=== PATIENT | female | born 1940 | race Caucasian/White ===

== ENCOUNTER 2020-03-22 22:54 | Emergency (ER) | payer MEDICARE, BC ==
[2020-03-22] MEDS ORDERED: Sodium Chloride 0.9% 10 ML Syringe FLUSH PRN (23:00)
[2020-03-22] MEDS ORDERED: Morphine 4 MG/ML Syringe IVPUSH ONE (23:03)
[2020-03-22] MEDS ORDERED: Ondansetron 4 MG/2 ML SDV IV ONE (23:03)
[2020-03-22] MEDS ORDERED: Morphine 2 MG/ML SYRINGE IM ONE (23:19)
[2020-03-22] MEDS ORDERED: Morphine 4 MG/ML Syringe ONE (23:58)
[2020-03-23 00:44] LABS: CHLORIDE,CL 102 mmol/L (98-107); SODIUM,NA 139 mmol/L (136-145)
[2020-03-23] MEDS ORDERED: HYDROmorphone 0.5 MG/0.5 ML Syringe IV ONE (00:53)
[2020-03-23] MEDS ORDERED: Ondansetron 4 MG/2 ML SDV IV ONE (00:53)
[2020-03-23 00:58] LABS: ANION GAP 13.8 mmol/L (10-20)
--- NOTE | 2020-03-23 01:11 | EDM.PDOC ---
ED HPI GENERAL MEDICAL PROBLEM - General Chief Complaint: Back Pain or Injury Stated Complaint: back pain fall Time Seen by Provider: 03/22/20 23:00 Source of Information: Reports: Patient History Limitations: Reports: No Limitations - History of Present Illness INITIAL COMMENTS - FREE TEXT/NARRATIVE: Patient was brought to the emergency department today by ambulance from home with concerns of a fall with back pain. Just prior to summoning the ambulance the patient was ambulatory at home she was going to the bathroom and her legs got like jelly" and she fell landing on her back striking it on some piece of the bathroom. She did not hit her head. She has osteoporosis. She has no head or neck pain. She primarily complains of pain in her mid back. She denies any pain in the pelvis. She denies any change in functionality or sensation to her lower extremities. She has no loss of bowel or bladder. She has no abdominal pain nausea or vomiting. She is a dialysis patient who missed dialysis yesterday because she had diarrhea and was unable to make it to her dialysis run. She was just recently discharged from the hospital either Thursday or Thursday due to fluid overload congestive heart failure and chronic dialysis. She has been taking her medications as prescribed. With her fall really sounds like she did not have any chest pain shortness of breath palpitations generalized weakness syncope. She relates on a regular basis her legs become weak and she falls. No fever no chills. No cough congestion. No chest pain. No Covid exposure no Covid symptoms. Lower Back Pain Score (Numeric/FACES): 10 - Related Data Allergies Allergy/AdvReac Type Severity Reaction Status Date / Time adhesive Allergy Rash Verified 03/22/20 23:39 latex Allergy Rash Verified 03/22/20 23:39 Home Meds: Home Meds Allopurinol [Zyloprim] 150 mg PO DAILY 05/15/15 [History] Aspirin 81 mg PO DAILY 05/15/15 [History] Calcium Carb, Citrate/Vit D3 [Calcium + D3 ER Tablet] 1 each PO DAILY@1500 05/15/15 [History] Cyanocobalamin (Vitamin B-12) [Vitamin B-12] 1,000 mcg PO DAILY@1800 05/15/15 [History] Digoxin [Digox] 125 mcg PO BEDTIME 05/15/15 [History] Furosemide 80 mg PO DAILY 05/15/15 [History] Levothyroxine [Synthroid] 50 mcg PO ACBREAKFAST 05/15/15 [History] Lisinopril [Prinivil] 5 mg PO DAILY 05/15/15 [History] Lutein/Minerals/Vit A,C & E [Ocuvite] 2 cap PO DAILY 05/15/15 [History] Metoprolol Succinate [Toprol XL] 50 mg PO DAILY 05/15/15 [History] Warfarin [Coumadin] 2.5 mg PO MOFR@199905/15/15 [History] Warfarin [Coumadin] 5 mg PO SUTUWETHSA@199905/15/15 [History] Past Medical History Cardiovascular History: Reports: Afib, Heart Failure, PVD Respiratory History: Reports: COPD Gastrointestinal History: Reports: GI Bleed Genitourinary History: Reports: Acute Renal Failure, Dialysis, Renal Disease Social & Family History - Tobacco Use Tobacco Use Status *Q: Never Tobacco User ED ROS GENERAL - Review of Systems Review Of Systems: Comprehensive ROS is negative, except as noted in HPI. ED EXAM,LOWER BACK PAIN/INJURY - Physical Exam Exam: See Below Exam Limited By: No Limitations General Appearance: Alert, WD/WN, Anxious Eye Exam: Bilateral Eye: EOMI, PERRL Ears: Normal External Exam, Normal TMs Nose: Normal Inspection Throat/Mouth: Normal Inspection Head: Atraumatic, Normocephalic Neck: Normal Inspection, Supple, Non-Tender, Full Range of Motion. No: Tender Lateral, Tender Midline Respiratory/Chest: No Respiratory Distress, Lungs Clear, Normal Breath Sounds, Chest Non-Tender Cardiovascular: Normal Peripheral Pulses, Regular Rate, Rhythm GI/Abdominal: Normal Bowel Sounds, Soft, Non-Tender, Pelvis Stable (Female) Exam: Deferred Rectal (Female) Exam: Deferred Back Exam: Vertebral Tenderness (Palpation on the posterior midline spine of the patient is logrolled he does have some tenderness around the T 7 8 9 region. No overt bony deformities or step-offs.). No: Paraspinal Tenderness Extremities: Normal Inspection, Normal Range of Motion, Non-Tender, Normal Capillary Refill Neurological: Alert, Normal Mood/Affect, Normal Dorsiflexion, CN II-XII Intact, Normal Plantar Flexion, Normal Reflexes, No Motor/Sensory Deficits, Oriented x 3 DTR - Lower Extremities: 2+: Knee (R), Knee (L), Ankle (R), Ankle (L) Psychiatric: Anxious Skin Exam: Warm, Dry, Intact, Normal Color, No Rash Course - Vital Signs Last Recorded V/S: Last Vital Signs Temp 97.8 F 03/22/20 23:00 Pulse 82 03/23/20 01:31 Resp 16 03/23/20 01:31 BP 124/72 03/23/20 01:31 Pulse Ox 86 L 03/23/20 02:08 - Orders/Labs/Meds Labs: Laboratory Tests 03/23/20 03/23/20 03/23/20 Range/Units 00:05 00:55 00:55 WBC 10.4 H (4.0-10.0) x10^3/uL RBC 2.77 L (4.00-5.50) x10^6/uL Hgb 8.8 L (12.0-16.0) g/dL Hct 27.2 L (33.0-47.0) % MCV 98.2 H D (78.0-93.0) fL MCH 31.8 (26.0-32.0) pg MCHC 32.4 (32.0-36.0) g/dL RDW Coeff of Magdy 14.3 (10.0-15.0) % Plt Count 221 (130-400) x10^3/uL Add Manual Diff Yes Neutrophils % (Manual) 91 H (50-80) % Lymphocytes % (Manual) 6 L (25-50) % Monocytes % (Manual) 2 (2-11) % Eosinophils % (Manual) 1 (0-4) % Hypersegmented Neuts Rare H Platelet Estimate Adequate Macrocytosis 1+ slight H Target Cells Rare Ovalocytes 1+ slight H PT (9.5-12.3) SEC INR (2.0-3.5) APTT (25.6-32.8) SEC Sodium 139 (136-145) mmol/L Potassium 5.8 H (3.5-5.1) mmol/L Chloride 102 (98-107) mmol/L Carbon Dioxide 29 (21-32) mmol/L Anion Gap 13.8 (10-20) mmol/L BUN 46 H D (7-18) mg/dL Creatinine 7.3 H* D (0.55-1.02) mg/dL Est Cr Clr Drug Dosing 5.98 mL/min Estimated GFR (MDRD) 5 Glucose 111 H (74-106) mg/dL Lactic Acid 1.0 (0.4-2.0) mmol/L Calcium 8.9 (8.5-10.1) mg/dL Corrected Calcium 9.78 (8.5-10.1) mg/dL Total Bilirubin 0.4 (0.2-1.0) mg/dL AST 25 (15-37) U/L ALT 21 (14-59) U/L Alkaline Phosphatase 118 H (46-116) U/L Troponin I < 0.017 (<=0.056) ng/mL NT-Pro-B Natriuret Pep 99655 H (<=450) pg/mL Total Protein 6.4 (6.4-8.2) g/dL Albumin 2.9 L (3.4-5.0) g/dL Globulin 3.5 Albumin/Globulin Ratio 0.83 03/23/20 Range/Units 00:55 WBC (4.0-10.0) x10^3/uL RBC (4.00-5.50) x10^6/uL Hgb (12.0-16.0) g/dL Hct (33.0-47.0) % MCV (78.0-93.0) fL MCH (26.0-32.0) pg MCHC (32.0-36.0) g/dL RDW Coeff of Magdy (10.0-15.0) % Plt Count (130-400) x10^3/uL Add Manual Diff Neutrophils % (Manual) (50-80) % Lymphocytes % (Manual) (25-50) % Monocytes % (Manual) (2-11) % Eosinophils % (Manual) (0-4) % Hypersegmented Neuts Platelet Estimate Macrocytosis Target Cells Ovalocytes PT 16.1 H (9.5-12.3) SEC INR 1.5 L (2.0-3.5) APTT 31.1 (25.6-32.8) SEC Sodium (136-145) mmol/L Potassium (3.5-5.1) mmol/L Chloride (98-107) mmol/L Carbon Dioxide (21-32) mmol/L Anion Gap (10-20) mmol/L BUN (7-18) mg/dL Creatinine (0.55-1.02) mg/dL Est Cr Clr Drug Dosing mL/min Estimated GFR (MDRD) Glucose (74-106) mg/dL Lactic Acid (0.4-2.0) mmol/L Calcium (8.5-10.1) mg/dL Corrected Calcium (8.5-10.1) mg/dL Total Bilirubin (0.2-1.0) mg/dL AST (15-37) U/L ALT (14-59) U/L Alkaline Phosphatase (46-116) U/L Troponin I (<=0.056) ng/mL NT-Pro-B Natriuret Pep (<=450) pg/mL Total Protein (6.4-8.2) g/dL Albumin (3.4-5.0) g/dL Globulin Albumin/Globulin Ratio Meds: Medications Discontinued Medications Generic Name Dose Route Start Last Admin Trade Name Freq PRN Reason Stop Dose Admin Diphenhydramine HCl 25 mg 03/23/20 01:17 03/23/20 01:24 Benadryl IVPUSH 03/23/20 01:18 25 mg ONETIME ONE Administration Fentanyl 50 mcg 03/23/20 01:17 03/23/20 01:24 Fentanyl IVPUSH 03/23/20 01:18 50 mcg ONETIME ONE Administration Hydromorphone HCl 0.5 mg 03/23/20 00:53 03/23/20 01:05 Dilaudid IV 03/23/20 00:54 0.5 mg ONETIME ONE Administration Lorazepam 1 mg 03/23/20 01:42 03/23/20 02:01 Ativan IVPUSH 03/23/20 01:43 1 mg STAT ONE Administration Morphine Sulfate 4 mg 03/22/20 23:03 03/22/20 23:50 Morphine IVPUSH 03/22/20 23:04 Not Given ONETIME ONE Morphine Sulfate 4 mg 03/22/20 23:19 03/22/20 23:52 Morphine IM 03/22/20 23:20 4 mg ONETIME ONE Administration Morphine Sulfate Confirm 03/22/20 23:58 03/22/20 23:52 Morphine Administered 03/22/20 23:59 Not Given Dose 4 mg .ROUTE .STK-MED ONE Ondansetron HCl 4 mg 12/10/20 23:03 Zofran IV 03/22/20 23:04 ONETIME ONE Ondansetron HCl 4 mg 03/23/20 00:53 03/23/20 01:03 Zofran IV 03/23/20 00:54 4 mg ONETIME ONE Administration Ondansetron HCl 4 mg 03/23/20 01:55 03/23/20 01:59 Zofran IVPUSH 03/23/20 01:56 4 mg ONETIME ONE Administration Sodium Chloride 10 ml 03/22/20 23:00 Saline Flush FLUSH ASDIRECTED PRN Keep Vein Open - Radiology Interpretation Free Text/Narrative:: CT thoracic spine per radiology shows acute fracture through the inferior aspect of the T9 vertebrae with mild distraction. Fracture involves the posterior cortex of the anterior vertebra consistent with burst type fracture. No involvement of the posterior elements. Anterior syndesmophytes are disrupted. MRI can be performed for further evaluation. CT lumbar spine no spine fracture. However bones are diffusely osteopenic I have concerns for occult fracture MRI can be performed. Other chronic findings please see complete radiology report. - Re-Assessments/Exams Free Text/Narrative Re-Assessment/Exam: The patient is a rather difficult IV start. Multiple attempts were made to place an IV. Without success. She was given 4 mg of morphine IM. Eventually I was able to get IV by ultrasound in her right antecubital fossa. He was given Dilaudid for pain. She subsequently developed nausea vomiting and retching following the Dilaudid. She was given Zofran Benadryl and Ativan with subsequent resolution of her nausea vomiting and retching. Her pain was much improved as she received 50 mcg of fentanyl. This patient does have a T9 burst fracture without any neurological involvement or change in the sensation or motor function of her lower extremities. She is quite osteopenic on her CT exam. She also needs dialysis which we are unable to offer her here. I called and spoke with Dr Zaldivar at [facility] in the ED. I reviewed the CT scans with DR. Zaldivar and his questions were answered and he accepted the patient in transfer at this time for further care management at [facility]. I discussed the findings and concerns with the patient. She is well aware that she needs dialysis today. We will transfer her by ambulance to [facility] in [place] for further care management and evaluation. She is comfortable with this plan her questions are answered. Departure - Departure Time of Disposition: 01:10 Disposition: DC/Tfer to [facility] 02 Clinical Impression: CKD (chronic kidney disease) stage V requiring chronic dialysis Closed burst fracture of lumbar vertebra Qualifiers: Encounter type: initial encounter Qualified Code(s): S32.001A - Stable burst fracture of unspecified lumbar vertebra, initial encounter for closed fracture Fall Qualifiers: Encounter type: initial encounter Qualified Code(s): W19.XXXA - Unspecified fall, initial encounter - Discharge Information Forms: ED Department Discharge, Interfacility Transfer [facility] Sepsis Event Note (ED) - Evaluation Sepsis Screening Result: No Definite Risk
[2020-03-23] MEDS ORDERED: fentaNYL 50 MCG/ML SDV IVPUSH ONE (01:17)
[2020-03-23] MEDS ORDERED: diphenhydrAMINE 50 MG/ML SDV IVPUSH ONE (01:17)
[2020-03-23 01:18] LABS: PTT,PARTIAL THROMBOPLSTIN TIME 31.1 SEC (25.6-32.8)
[2020-03-23 01:31] VITALS: BP 124/72; PULSE 82
[2020-03-23] MEDS ORDERED: LORazepam 2 MG/ML SDV IVPUSH ONE (01:42)
[2020-03-23] MEDS ORDERED: Ondansetron 4 MG/2 ML SDV IVPUSH ONE (01:55)
--- NOTE | 2020-03-23 09:29 | CT ---
[id number] CT/CT Thoracic Spine WO IV; [id number] CT/CT Lumbar Spine WO IV Exam: CT Thoracic Spine WO IV, CT Lumbar Spine WO IV Indication:FALL, SEVERE LOW BACK PAIN Comparison: No prior imaging for comparison. Discussion/Impression: Acute fracture of the T9 vertebral body. There is at least 11 mm of distraction along the anterior margin of the fracture site. Fracture line extends through the vertebral body and appears to exit the posterior vertebral body cortex. Fracture line extends into the left pedicle resulting in slight distraction of the left facet joint. Linear lucency within the right superior articulating facet (series 6 image 30). Within limitations of diffusely advanced bone demineralization no other acute findings are identified. Changes of ankylosing spondylitis throughout the spine, including bridging syndesmophytes across the vertebral bodies and enthesitis of the supraspinous and interspinous ligaments. There is also ankylosis across numerous facet joints of the lumbar and thoracic spine. Spondylosis and kyphosis throughout the spine as well. Diffuse bone demineralization. Small bilateral pleural effusions. Cardiomegaly. Left adrenal mass measuring 36 x 40 x 32 mm. Mass contains macroscopic fat and mineralization. 46 mm cystic mass in the pelvis, possibly adnexal in origin. Findings extend beyond the field of view of this examination. Impression: Acute unstable T9 burst fracture with involvement of the posterior elements, described above. Within limitations of diffusely advanced bone demineralization, no other acute fractures are identified in the spine. If there is concern for additional fractures, MRI examination is recommended. Ankylosing spondylitis and spondylosis, described above. 40 x 36 x 32 mm left adrenal mass, described above. 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 MRI of the abdomen with and without contrast would be of benefit to better evaluate this finding. 46 mm cystic pelvic mass. Pelvic ultrasound is recommended. Other findings are described above. Abe Joshi MD 03/23/20 1707 Thank you for allowing us to participate in the care of your patient.
== END 2020-03-23 03:00 | disposition short-term general hospital (02) ==
LOC: VM.ED 22:54
DX: S32.001A Stable burst fracture of unspecified lumbar vertebra, initial encounter for closed fracture (principal); S22.072A Unstable burst fracture of T9-T10 vertebra, initial encounter for closed fracture; N18.5 Chronic kidney disease, stage 5; Z99.2 Dependence on renal dialysis; I50.9 Heart failure, unspecified; I48.91 Unspecified atrial fibrillation; J44.9 Chronic obstructive pulmonary disease, unspecified; Z79.82 Long term (current) use of aspirin; Z79.899 Other long term (current) drug therapy; Z91.040 Latex allergy status; Z91.09 Other allergy status, other than to drugs and biological substances; W01.10XA Fall on same level from slipping, tripping and stumbling with subsequent striking against unspecified object, initial encounter; Y92.002 Bathroom of unspecified non-institutional (private) residence as the place of occurrence of the external cause
CPT/HCPCS: 36415; 72128; 72131; 80053; 83605; 83880; 84484; 85025; 85610; 85730; 93005; 94760; 96372; 96374; 96375; 96376; 99285; J1170; J1200; J2060; J2270; J2405; J3010; 99284

== ENCOUNTER 2020-04-10 12:49 | Inpatient (IN) | payer MEDICARE, BC ==
[2020-04-10] MEDS ORDERED: Ondansetron 4 MG Tab.DIS PO PRN (15:08)
[2020-04-10] MEDS ORDERED: Ondansetron 4 MG/2 ML SDV IV PRN (15:15)
[2020-04-10] MEDS ORDERED: Sodium Phosphate,Monobasic/Sodium Phosphate,Dibasic Enema 133 ML Bottle RECTAL PRN (15:15)
[2020-04-10] MEDS ORDERED: Gabapentin 100 MG Cap PO SCH (15:15)
--- NOTE | 2020-04-10 15:30 | PCM.HP.2 ---
H&P History of Present Illness - General Date of Service: 04/10/20 Admit Problem/Dx: Admission Diagnosis/Problem Admission Diagnosis/Problem End-stage renal disease, Pneumonia, Thoracic Vertebral burst fracture (unstable) Source of Information: Patient, EMS, Family - History of Present Illness Initial Comments - Free Text/Narative: Nickie is an 79-year-old female with a past medical history of end-stage renal disease on hemodialysis, atrial fibrillation, chronic diastolic CHF, sleep apnea, hypothyroidism, secondary hyperparathyroidism, and Raynauds. She was recently admitted to [facility] from 04/07/2020-04/10/20 for acute hypoxic respiratory failure secondary to healthcare associated pneumonia. She had previously been admitted from 03/23/2022-04/02/2020 for an unstable thoracic landen tebral burst fracture secondary to mechanical fall. During her most recent hospital stay she and her family did talk with the team about wanting to cease treatments and pursue palliative care. She had decided to stop her anticoagulation for her atrial fibrillation as well as stopping her hemodialysis for end-stage renal disease. She is at term with the outcome of these decisions. Family and her are seeking palliative care for end-of-life comfort. She is aware of the unpredictable timeframe with cessation of dialysis. She would like to continue the azithromycin that she was prescribed for the healthcare associated pneumonia; this is set to finish in just a handful of days. Aside from the pneumonia her biggest concern is making sure that her pain is taken care of. She has no pain when she is sitting at rest however anytime that she is moved she experiences severe pain in her thoracic spine where she suffered the burst fracture. She does have some decubitus skin breakdown so it will be important to make sure that she is comfortable when she is undergoing rolling/repositioning. She is also concerned about staying on top of her bowel habits. She has been having very little oral intake. She has had to have manual disimpaction a couple times over the last few weeks. Would like to stay on top of this. - Related Data Allergies/Adverse Reactions: Allergies Allergy/AdvReac Type Severity Reaction Status Date / Time adhesive Allergy Itching Verified 04/10/20 10:53 latex Allergy Rash Verified 04/10/20 10:53 probenecid Allergy Hives Verified 04/10/20 10:53 Home Medications: Home Meds Acetaminophen 650 mg PO Q4H PRN 04/10/20 [History] Acetaminophen [Tylenol Arthritis Pain] 1,300 mg PO TID PRN 04/10/20 [History] Allopurinol [Zyloprim] 100 mg PO DAILY 04/10/20 [History] Azithromycin 250 mg PO DAILY 04/10/20 [History] Docusate Sodium [Enemeez] 283 mg RC DAILY PRN 04/10/20 [History] Gabapentin [Neurontin] 100 mg PO ASDIRECTED 04/10/20 [History] Glycopyrrolate [Cuvposa] 0.5 - 1 ml IV Q4H PRN 04/10/20 [History] HYDROmorphone [Dilaudid] 0.25 mg SQ Q2H PRN 04/10/20 [History] LORazepam [Ativan] 0.25 - 2 mg IV Q4H PRN 04/10/20 [History] LORazepam [Ativan] 0.25 - 2 mg PO Q4H PRN 04/10/20 [History] LORazepam [Ativan] 0.25 - 2 mg SUBCUT Q4H PRN 04/10/20 [History] Lidocaine 5% [Lidoderm 5%] 1 patch TOP DAILY PRN 04/10/20 [History] Metoprolol Tartrate 12.5 mg PO BID 04/10/20 [History] Ondansetron [Ondansetron Odt] 4 mg PO QID PRN 04/10/20 [History] Ondansetron [Zofran] 4 mg IV QID PRN 04/10/20 [History] Sennosides/Docusate Sodium [Senna Plus 8.6-50 mg Tablet] 2 tab PO BID PRN 04/10/20 [History] Sennosides/Docusate Sodium [Senna-Docusate Sodium Tablet] 1 tab PO DAILY PRN [History] Sodium Phosphate,Overton-Dibasic [Enema Ready To Use] 133 ml RC DAILY PRN 04/10/20 [History] bisacodyL [Bisacodyl] 10 mg RC DAILY PRN 04/10/20 [History] polyethylene glycoL 3350 [MiraLAX] 17 gm PO DAILY 04/10/20 [History] Past Medical History HEENT History: Reports: Cataract, Macular Degeneration, Other (See Below) Other HEENT History: dysphagia Cardiovascular History: Reports: Afib, Heart Failure, Hypertension, PVD, Other (See Below) Other Cardiovascular History: cardiac arrest. raynauds sydrome. varicose veins Respiratory History: Reports: COPD, Sleep Apnea Gastrointestinal History: Reports: Chronic Constipation, GI Bleed, Other (See Below) Other Gastrointestinal History: gastroparesis Genitourinary History: Reports: Acute Renal Failure, Dialysis, Renal Disease Endocrine/Metabolic History: Reports: Obesity/BMI 30+, Other (See Below) Other Endocrine/Metabolic History: impaired fasting glucose Hematologic History: Reports: Anemia, Iron Deficiency - Past Surgical History GI Surgical History: Reports: Appendectomy, Bariatric Procedure, Chol ecystectomy, EGD Female Surgical History: Reports: Other (See Below) Other Female Surgeries/Procedures: AV shunt fistula Musculoskeletal Surgical History: Reports: Carpal Tunnel Social & Family History - Family History Family Medical History: No Pertinent Family History - Tobacco Use Tobacco Use Status *Q: Never Tobacco User Second Hand Smoke Exposure: No - Caffeine Use Caffeine Use: Reports: Coffee - Recreational Drug Use Recreational Drug Use: No H&P Review of Systems - Review of Systems: Review Of Systems: See Below General: Reports: No Symptoms HEENT: Reports: No Symptoms Pulmonary: Reports: No Symptoms Cardiovascular: Reports: No Symptoms Gastrointestinal: Reports: Constipation Genitourinary: Reports: No Symptoms, Other (Makes very little urine) Musculoskeletal: Reports: Back Pain (Secondary to thoracic burst fracture) Skin: Reports: Dryness (Calluses on bilateral feet) Psychiatric: Reports: No Symptoms Neurological: Reports: No Symptoms Exam - Exam Exam: See Below - Vital Signs Vital Signs: Last Vital Signs Temp 97.5 F 04/10/20 13:20 Pulse 80 04/10/20 13:20 Resp 21 H 04/10/20 13:20 BP 83/45 L 04/10/20 13:20 Pulse Ox Weight: 198 lb 10.184 oz - Exam Quality Assessment: Supplemental Oxygen General: Alert, Oriented HEENT: Conjunctiva Clear, EOMI, Mucosa Moist & [place], Nares Patent Neck: Supple, Trachea Midline Lungs: Clear to Auscultation, Normal Respiratory Effort Cardiovascular: Regular Rate, Irregular Rhythm GI/Abdominal Exam: Normal Bowel Sounds, Soft, Non-Tender Back Exam: Normal Inspection, Other (Pain with rolling/repositioning) Extremities: Normal Inspection Skin: Warm, Dry, Decubitis (Superficial grade 1 sacral ulcer, surrounding erythema) Neuro Extensive - Mental Status: Alert, Oriented x3, Normal Mood/Affect Psychiatric: Alert, Normal Affect, Normal Mood Sepsis Event Note - Focused Exam Vital Signs: Vital Signs Temp Pulse Resp BP 04/10/20 13:20 97.5 F 80 21 H 83/45 L Problem List Initiated/Reviewed/Updated: Yes Orders Last 24hrs: Active Orders 24 hr Category Date Time Status Admission Status [Patient Status] [ADT] Routine ADT 04/10/20 12:49 Active Dietary Supplements [RC] BIDMEALS Care 04/10/20 15:21 Ordered Oxygen Therapy [RC] PRN Care 04/10/20 15:08 Ordered Up With Assistance [RC] ASDIRECTED Care 04/10/20 15:08 Ordered VTE/DVT Education [RC] PER UNIT ROUTINE Care 04/10/20 15:08 Ordered Vital Signs [RC] DAILY Care 04/10/20 15:08 Ordered Consult to Spiritual Care [CONS] Routine Cons 04/10/20 15:08 Ordered Regular Diet [DIET] Diet 04/10/20 Dinner Ordered Acetaminophen [TylenoL] Med 04/10/20 15:14 Ordered 650 mg PO Q4H PRN Azithromycin [Take Home: Azithromycin 250 MG, 2 Tab Med 04/11/20 08:00 Ordered Pack] 250 mg PO DAILY Docusate Sodium [Enemeez] Med 04/10/20 15:15 Ordered 283 mg RC DAILY PRN Docusate Sodium/Sennosides [Senna Plus] Med 04/10/20 15:15 Ordered 2 tab PO BID PRN Gabapentin [Neurontin] Med 04/10/20 15:15 Ordered 100 mg PO ASDIRECTED Glycopyrrolate [Cuvposa] Med 04/10/20 15:15 Ordered 0.5 - 1 ml IV Q4H PRN HYDROmorphone [Dilaudid] Med 04/10/20 15:15 Ordered 0.25 mg IV Q2H PRN HYDROmorphone [Dilaudid] Med 04/10/20 20:00 Ordered 0.25 mg IVPUSH BID Lidocaine 5% [Lidoderm 5%] Med 04/10/20 15:15 Ordered 1 patch TOP DAILY PRN Metoprolol Tartrate [Lopressor] Med 04/10/20 20:00 Ordered 12.5 mg PO BID Na Phos,M-B/Na Phos,DI-B [Fleet Enema] Med 04/10/20 15:15 Ordered 133 ml RECTAL DAILY PRN Ondansetron [Zofran ODT] Med 04/10/20 15:08 Ordered 4 mg PO Q4H PRN Ondansetron [Zofran] Med 04/10/20 15:15 Ordered 4 mg IV QID PRN polyethylene glycoL 3350 [MiraLAX] Med 04/11/20 08:00 Ordered 17 gm PO DAILY Resuscitation Status Routine Resus Stat 04/10/20 15:08 Ordered Assessment/Plan Comment:: # ESRD - Patient opting to forgo any further dialysis - Would like to stop phosphate binders/allopurinol Plan: - Admitting under palliative status/comfort cares - Will hold phosphate binder/allopurinol - OK for regular diet - Spiritual consult placed # HCAP - Patient would like to continue course of Azithromycin Plan: - Continue azithromycin (end date placed) - Supplemental O2 as needed # Permanent A.fib - Patient elected to stop warfarin prior to transfer Plan: - Hold warfarin - Continue metoprolol for rate control # Unstable Thoracic vertebrae burst fracture - Pain with any movement Plan: - Schedule IV dilaudid 0.25mg BID - PRN dilaudid available q2hr as needed - If/when IV infiltrates we will look at SQ options # Sacral Ulcer - Chronic Plan: - Repositioning every 3-4 hours per nursing # Constipation - Chronic Plan: - Bowel regiment including stool softeners, miralax, and fleets ordered - Ok to mix miralax with 4ox of coffee Diet: Regular DVT proph: none, CC measures CODE: DNR/DNI Dispo: Patient admitted to [facility] for palliation/comfort cares. Will continue treatment for pneumonia. Will support pain/anxiety as needed. - Mortality Measure Prognosis:: Poor
[2020-04-10] MEDS ORDERED: Glycopyrrolate 0.2 MG/ML 2 ML SDV IV PRN (15:33)
[2020-04-10] MEDS ORDERED: Polyethylene Glycol 3350 Powder 17 GM Packet PO STA (15:44)
[2020-04-10] MEDS: Lidocaine 4% 1 each Patch TOP PRN (16:28)
[2020-04-10] MEDS: HYDROmorphone 0.5 MG/0.5 ML Syringe IVPUSH SCH (20:12)
[2020-04-10] MEDS: Metoprolol Tartrate 25 MG Tab PO SCH (20:12)
[2020-04-10] MEDS: Acetaminophen 325 MG Tab PO PRN (20:15)
[2020-04-11] MEDS: Acetaminophen 325 MG Tab PO PRN ×2 (01:07→20:21)
--- OUTSIDE RECORDS SUMMARY | 2020-04-11 08:02 | XMSREPORT ---
:1940 Author Organization [facility] s Address [address] [place] [address] Care Team Providers Name Role Phone DO [place] Primary Care Provider Provider, Attributed RESOURCE Attributed Provider Unavailab le Reason for Visit Reason Comments Cough Patient presents from [facility] via ambulance on non-rebreather at 9/L O2. Rj menendez has history of dysphagia. She is at [facility] for recently "breaking my ba ck". She states that she believes she swallowed something "wrong" and has be en cough for 4 days. Patient became hypoxic. When EMS arrived, patient was sat ing at 85%. Auth/Cert Status Reason Specialty Diagnoses / Procedures Referred By Angela robb Referred To Contact Encounter Details Date Type Department Care Team Description 04/07/2020 - Hospital Encounter [facility] n[facility] Department [address] [place] [address] [phone] Acute respiratory 04/10/2020 CENTER [facility] Meggan Basurto MD [address] [place] [address] [phone] failure with [address] Imelda Robin MD [address] [place] [address] [phone] [place] [address] Zhang Klein MD [address] [place] [address] [phone] hypercapnia ([facility]) [phone] Anselmo Davis MD [address] [place] [address] [phone] Allergies Active Allergy Reactions Severity Noted Date Comments Probenecid Angioedema (High) High 02/23/2020 Latex Unknown/Not Verified 10/08/2011 Probenecid Hives (High), Rash High 10/08/2011 Adhesives Itching, Other (Specify in Comments) 09/12 Breaks out. documented as of this encounter (statuses as of 04/10/2020) Medications Medication Sig Dispensed Refills Start End Status Date Date acetaminophen Take 1,300 mg by 0 Active (TYLENOL mouth 3 times a ARTHRITIS) 650 mg day as needed for CR tablet mild pain gabapentin Take 1 capsule 30 capsule 0 04/05/20 elsa (NEURONTIN) 100 mg (100 mg) by mouth 20 202 1 capsuleIndications on Thursday, : Back pain, , and unspecified back Thursday location, Administer after unspecified back dialysis pain laterality, unspecified chronicity sodium phosphates Insert 1 enema 0 Active (FLEET ADULT) rectally 1 time a enema day as needed for constipation acetaminophen Take 2 tablets 0 04/10/20 A ctive (TYLENOL) 325 mg (650 mg) by mouth 20 tabletIndications: Every 4 hours as Hospice care needed for mild pain HYDROmorphone Inject 0.25 mL 0 04/10/20 A ctive (DILAUDID) 0.5 (0.25 mg) 20 mg/0.5 mL SOLN subcutaneously injection solution every 2 hours as (conc: 0.5 needed for mg/0.5mL)Indicatio moderate pain or ns: Hospice care severe pain LORazepam (ATIVAN) Take 0.5-4 60 tablet 0 04/10/20 Active 0.5 mg tablets (0.25-2 20 tabletIndications: mg) by mouth Hospice care Every 4 hours as needed for other (Specify) (restlessness.) LORazepam (ATIVAN) Administer 0.13-1 0 04/10/20 Active 2 mg/mL injection mL (0.25-2 mg) 20 solutionIndication intravenously s: Hospice care Every 4 hours as needed for other (Specify) (restlessness) LORazepam (ATIVAN) Inject 0.13-1 mL 0 04/10/20 Active 2 mg/mL injection (0.25-2 mg) 20 solutionIndication subcutaneously s: Hospice care Every 4 hours as needed for other (Specify) (restlessness) ondansetron Take 1 tablet (4 0 04/10/20 A ctive (ZOFRAN ODT) 4 mg mg) by mouth 4 20 dispersible times a day as tabletIndications: needed for nausea Hospice care or vomiting ondansetron Administer 2 mL 0 04/10/20 Ac tive (ZOFRAN) 4 mg/2 mL (4 mg) 20 injection intravenously 4 solutionIndication times a day as s: Hospice care needed for nausea or vomiting metoprolol Take 0.5 tablets 0 04/10/2004/15/ Ac tive tartrate (12.5 mg) by 2021 (LOPRESSOR) 25 mg mouth 2 times a tabletIndications: day Hospice care lidocaine Apply 1 patch 30 patch 0 04/10/20 Active (LIDODERM) 5% topically 1 time 20 patchIndications: a day as needed Hospice care for other (Specify) (Back pain) Patches may be left on for up 12 hours in a 24 hour period. allopurinol Take 1 tablet 30 tablet 0 04/11/20 Acti ve (ZYLOPRIM) 100 mg (100 mg) by mouth 20 tabletIndications: 1 time per day Hospice care polyethylene Take 1 packet by 0 04/10/20 Active glycol (MIRALAX) mouth 1 time per 20 17 g day Dissolve in 4 packetIndications: to 8 ounces of Hospice care water, juice, soda, coffee, tea. azithromycin Take 2 tablets 6 tablet 0 04/10/20 Ac tive (ZITHROMAX) 250 mg orally today, 20 tabletIndications: then 1 tablet Hospice care every day starting tomorrow until all are taken. glycopyrrolate Administer 0.5-1 0 04/10/20 Active (ROBINUL) 1 mL (100-200 mcg) 20 MG/5MLIndications: intravenously Hospice care Every 4 hours as needed for other (Specify) (oral secretions) senna-docusate Take 1 tablet by 0 04/10/20 Active sodium mouth 1 time a 20 (SENOKOT-S;PERICOL day as needed for SHELLEY) 8.6-50 MG constipation tabletIndications: Hospice care bisacodyl Insert 1 30 suppository 0 04/10/20 Activ e (DULCOLAX) 10 mg suppository (10 20 suppositoryIndicat mg) rectally 1 ions: Hospice care time a day as needed for constipation Unwrap before inserting. Do not swallow. senna-docusate Take 2 tablets by 0 04/10/20 Active sodium mouth 2 times a 20 (SENOKOT-S;PERICOL day as needed for SHELLEY) 8.6-50 MG constipation tabletIndications: Hospice care docusate sodium Insert 1 enema 0 04/10/20 Active (THEREVAC-SB rectally 1 time a 20 MINI;ENEMEEZ MINI) day as needed for 283 MG constipation ENEMIndications: Hospice care darbepoetin Inject 0-150 mcg 0 iscontinued (ARANESP) 25 subcutaneously 2019 (S top Taking mcg/mL Indications: at Disc harge) SOLNIndications: Final Stages of End Stage Renal Kidney Disease Disease Instructions: *Dose adjusted by Dialysis PharmD-if on hemodialysis, to be given at outpatient dialysis unit. Call PharmD at [phone] for questions. *Do not change this entry*. sodium ferric Administer 0-125 0 04/10/ Discontinued gluconate complex mg intravenously 2019 (Stop Taking in sucrose Instructions: at Di scharge) (FERRLECIT) 12.5 *Dose adjusted by MG/ML SOLN Dialysis PharmD-if on hemodialysis, to be given at outpatient dialysis unit. Call PharmD at [phone] for questions. *Do not change this entry*. doxercalciferol Administer 0-10 0 04/10/ Discontinued (HECTOROL) 4 mcg/2 mcg intravenously 202 0 (Stop Taking mL SOLN Instructions: at Dis charge) *Dose adjusted by Dialysis PharmD-if on hemodialysis, to be given at outpatient dialysis unit. Call PharmD at [phone] for questions. *Do not change this entry*. loperamide Take 2 capsules 20 capsule 0 08/01/19 scontinued (IMODIUM) 2 mg (4 mg) by mouth 2019 (Stop Taking capsuleIndications on a t Discharge) : Loose stools Thursday,Thursday,, and Thursday. prior to dialysis multivitamin Take 2 tablets by 90 tablet 0 07/31/1904/10/ Discontinued (CERTAVITE WITH mouth 1 time per 2019 (Stop Taking ANTIOXIDANTS) day at Dis charge) TABSIndications: ESRD (end stage renal disease) on dialysis ([facility]) cyanocobalamin Take 1 tablet 30 tablet 3 09/02/1904/10/ D iscontinued (VITAMIN B-12) (1,000 mcg) by 2019 (Stop Taking 1000 mcg mouth 1 time per at Discharge) tabletIndications: day Preventative health care, ESRD (end stage renal disease) ([facility]), Vitamin B 12 deficiency levothyroxine 50 TAKE 1 TABLET BY 90 tablet 3 07/05/1904/10/ Discontinued mcg MOUTH EVERY 2019 (Stop Ta anup tabletIndications: MORNING a t Discharge) Hypothyroidism, unspecified type calcium acetate Take 2 capsules 540 capsule 3 02/13/2004/10/ Discontinued (PHOSLO) 667 MG (1,334 mg) by 2019 (Stop Taking capsuleIndications mouth 3 times a at Discharge) : ESRD (end stage day with meals Do renal disease) on not give on an dialysis ([facility]) empty stomach, must be given with food to be effective. allopurinol Take 0.5 tablets 45 tablet 3 02/13/20 D iscontinued (ZYLOPRIM) 300 mg (150 mg) by mouth 2019 (Stop Taking tabletIndications: 1 time per day at Discharge) Gout, unspecified cause, unspecified chronicity, unspecified site vitamin K 100 MCG Take 100 mcg by 0 04/10/ Discontinued TABS tablet mouth 1 time per 2019 ( Stop Taking day at Dischar ) warfarin Managed by 180 tablet 12 02/23/2004/10/ Michellonti nued (JANTOVEN) 2.5 MG Isidro 2019 (S top Taking tabletIndications: anticoagulant at Discharge) Persistent atrial clinic. Take 7.5 fibrillation (HCC) mg every Thursday and Thursday. 5 mg all other days of the week. ondansetron Take 1 tablet (4 20 tablet 0 03/19/2004/10/ D iscontinued (ZOFRAN ODT) 4 mg mg) by mouth 4 2019 (Stop Taking dispersible times a day as at Discharge) tabletIndications: needed for nausea Dysphagia, or vomiting unspecified type metoprolol Take 0.5 tablets 8 tablet 0 03/20/2004/10/ scontinued tartrate (12.5 mg) by 2019 (Stop T aking (LOPRESSOR) 25 mg mouth on Thursday, at Discharge) tabletIndications: , Atrial Thursday, and fibrillation with Thursday rapid ventricular response (HCC) lidocaine Apply 1 patch 30 patch 0 04/03/2004/10/ Discon tinued (LIDODERM) 5% topically 1 time 2019 (Stop Taking patchIndications: per day Patches at Discharge) Back pain, may be left on unspecified back for up 12 hours location, in a 24 hour unspecified back period. pain laterality, unspecified chronicity lidocaine-prilocai Apply sparingly 30 g 2 04/03/2004/10 / Discontinued ne (EMLA) 2.5-2.5 to dialysis 2019 (Stop Taking % cream access site at at [facility]) least 45 minutes prior to dialysis. Supplied through dialysis only. polyethylene Take 1 capful by 0 04/10/ Discontinued glycol (MIRALAX) mouth 1 time a 2019 (Stop Taking 17 GM/SCOOP powder day as needed for at Discharge) constipation Dissolve in 4 to 8 ounces of water, juice, soda, coffee, tea. vitamin D3, Take 50 mcg by 0 continued cholecalciferol, mouth 1 time per 2019 (Stop Taking 50 mcg (2000 unit) day a t Discharge) tablet documented as of this encounter (statuses as of 04/10/2020) Active Problems Problem Noted Date NSTEMI (non-ST elevated myocardial infarction) 020 Acute respiratory failure with hypoxia and hypercapnia 04/08/2020 Trauma 03/23/2020 Chronic diastolic CHF (congestive heart failure) 02/08 Chronic anticoagulation 02/08/2019 Secondary hyperparathyroidism of renal origin 12/17/19 19 Non-ST elevation (NSTEMI) myocardial infarction 2018 ESRD (end stage renal disease) on dialysis 04/30/2018 Iron (Fe) deficiency anemia 03/03/2018 Anemia of chronic renal failure, stage 5 02/25/2018 [place] (acute kidney injury) 02/17/2018 Pressure injury of left buttock, stage 2 02/16/2018 Hyperkalemia 02/10/2018 Renal failure 02/10/2018 Marginal ulcer 01/17/2016 Biventricular congestive heart failure 10/07/2011 Overview: 01/28 has been on lisinopril 5 mg, Toprol-XL 50 mg, Lasix 60 mg daily for a long time, feels her control is adequate and lower leg edema improved, though still "feels like I'm suffocating" if she sleeps lying down flat 01/28 has systolic murmur, L > R, can not tell if it is holosystolic Macular degeneration (senile) of retina 03/19/2009 Nontoxic uninodular goiter Overview: 01/28 actually says it was multiple n odules, nothing palpable now, TSH pending Raynaud's syndrome Overview: Controlled by keeping her fingers war m Gastroparesis Personal history of diseases of blood and blood-formin g organs Obesity Overview: 01/28 markedly improved by avoiding g luten (!), Lost 50# Varicose veins of lower extremities with ulcer Overview: Chronic stasis dermatitis, he checks ulcers, improved with weight loss 01/28 Other and unspecified angina pectoris Hypothyroidism Permanent atrial fibrillation Overview: Rate controlled on dig and metoprolol , 01/28 doing well on continuous Coumadin Sleep apnea Overview: 01/28 her equipment is old and she wi ll [facility] Gout Overview: On allopurinol 150 mg (300 mg 04/14) 01/28 uric acid 9.0, told to increase to 300 mg Impaired fasting glucose Dysphagia Overview: 01/28 says has difficulty swallowing cold things and was advised to avoid hot liquids, dental hygienist had to stop her procedure because of choking 01/28 video swallow exam Shows tenden cy to aspirate, Speech Rx consult 03/30/18 Health care maintenance Overview: Never a smoker, does not drink alcohol 01/28 refuses to consider colon scree jean paul documented as of this encounter (statuses as of 04/10/2020) Resolved Problems Problem Noted Date Resolved Date Supratherapeutic INR 02/10/2018 09/14/2018 Cardiac arrest 08/04/2018 CKD (chronic kidney disease) stage 4, GFR 15-29 ml/min 09/14/2018 Overview: 11/27 GFR 22, per her request, referral to Nephrology at [facility] 02/27 next year, 11/28 wants to come b ack to , Dr. Bear 01/28 says she will consider dialysis if necessary to stay alive, "unless I am a burden to my family" 01/28 started dialysis catheter, tatyana maharaj 03/30, started dialysis 3/week in [place] Hemoptysis 09/14/2018 Overview: 01/28 says small amount of blood in t he mucus that she coughs up, only occasionally; CXR negative documented as of this encounter (statuses as of 04/10/2020) Immunizations Name Administration Dates Next Due FLU VACCINE HIGH DOSE 65YR+(Fluzone) 01/30/2020, 01/31/2019, 01/07/2018, 01/09/2017, 01/07/2016, 01/11/2015, 01/05/2014, 01/21/2013, 01/05/2012, 01/29/2011 HEPLISAV-B Vaccine 03/16/2019, 02/16/2019, 12/15/2018, 11/17/2018 Influenza Vaccine,unspecified 03/19/2009 Pneumococcal Conj PCV13 01/07/2016 Pneumococcal Polysaccharide PPSV23 08/03/2008 documented as of this encounter Social History Tobacco Use Types Packs/Day Years Used Date Never Smoker Smokeless Tobacco: Never Used Alcohol Use Drinks/Week oz/Week Comments No Sexually Active Control Partners Comments Not Currently Sex Assigned at Date Recorded Not on file documented as of this encounter Last Filed Vital Signs Vital Sign Reading Time Taken Comments Blood Pressure 108/62 04/09/2020 1:00 PM WINDOW SHADE ESTIMATOR Pulse 97 04/09/2020 1:00 PM WINDOW SHADE ESTIMATOR Temperature 35.9 C (96.6 F) 04/09/2020 12:00 PM WINDOW SHADE ESTIMATOR Respiratory Rate 18 04/09/2020 1:00 PM WINDOW SHADE ESTIMATOR Oxygen Saturation 100% 04/09/2020 1:00 PM WINDOW SHADE ESTIMATOR Inhaled Oxygen Concentration - - Weight 90.1 kg (198 lb 10.2 oz) 04/08/2020 4:45 PM WINDOW SHADE ESTIMATOR Height 167.6 cm (5' 6") 04/08/2020 4:00 AM WINDOW SHADE ESTIMATOR Body Mass Index 32.06 04/08/2020 4:00 AM WINDOW SHADE ESTIMATOR documented in this encounter Functional Status Functional Status Response Date of Assessment Is the person deaf or does he/she have serious difficulty No 09/13/2019 hearing? Is this person blind or does he/she have difficulty No 09/13/2019 seeing even when wearing glasses? Do you have difficulty with walking, balance, climbing Yes 04/09/2020 stairs, or had a fall in the last 3 months? Does the patient have difficulty dressing or bathing? No 02/10/2018 Because of a physical, mental, or emotional condition; No 02/10/2018 does this person have difficulty doing errands alone such as visiting a doctor's office or shopping? Cognitive Status Response Date of Assessment Because of a physical, mental, or emotional condition; No 02/10/2018 does this person have serious difficulty concentrating, remembering, or making decisions? documented as of this encounter Discharge Summaries Not on filedocumented in this encounter Medications at Time of Discharge Medication Sig Dispensed Refills Start Date End Date acetaminophen Take 2 tablets (650 0 04/10/2020 (TYLENOL) 325 mg mg) by mouth Every 4 tabletIndications: hours as needed for Hospice care mild pain HYDROmorphone Inject 0.25 mL (0.25 0 04/10/2020 (DILAUDID) 0.5 mg/0.5 mg) subcutaneously mL SOLN injection every 2 hours as solution (conc: 0.5 needed for moderate mg/0.5mL)Indications: pain or severe pain Hospice care LORazepam (ATIVAN) 2 Administer 0.13-1 mL 0 04/10 mg/mL injection (0.25-2 mg) solutionIndications: intravenously Every Hospice care 4 hours as needed for other (Specify) (restlessness) LORazepam (ATIVAN) 2 Inject 0.13-1 mL 0 0 mg/mL injection (0.25-2 mg) solutionIndications: subcutaneously Every Hospice care 4 hours as needed for other (Specify) (restlessness) ondansetron (ZOFRAN Take 1 tablet (4 mg) 0 2019 ODT) 4 mg dispersible by mouth 4 times a tabletIndications: day as needed for Hospice care nausea or vomiting ondansetron (ZOFRAN) Administer 2 mL (4 0 020 4 mg/2 mL injection mg) intravenously 4 solutionIndications: times a day as Hospice care needed for nausea or vomiting lidocaine (LIDODERM) Apply 1 patch 30 patch 0 04/10/2020 5% patchIndications: topically 1 time a Hospice care day as needed for other (Specify) (Back pain) Patches may be left on for up 12 hours in a 24 hour period. allopurinol Take 1 tablet (100 30 tablet 0 04/11/2020 (ZYLOPRIM) 100 mg mg) by mouth 1 time tabletIndications: per day Hospice care polyethylene glycol Take 1 packet by 0 04/10/2020 (MIRALAX) 17 g mouth 1 time per day packetIndications: Dissolve in 4 to 8 Hospice care ounces of water, juice, soda, coffee, tea. azithromycin Take 2 tablets 6 tablet 0 04/10/2020 (ZITHROMAX) 250 mg orally today, then 1 tabletIndications: tablet every day Hospice care starting tomorrow until all are taken. glycopyrrolate Administer 0.5-1 mL 0 04/10/2020 (ROBINUL) 1 (100-200 mcg) MG/5MLIndications: intravenously Every Hospice care 4 hours as needed for other (Specify) (oral secretions) senna-docusate sodium Take 1 tablet by 0 04/10/20 20 (SENOKOT-S;PERICOLACE mouth 1 time a day ) 8.6-50 MG as needed for tabletIndications: constipation Hospice care bisacodyl (DULCOLAX) Insert 1 suppository 30 suppository 0 1 06/11/2019 10 mg (10 mg) rectally 1 suppositoryIndication time a day as needed s: Hospice care for constipation Unwrap before inserting. Do not swallow. senna-docusate sodium Take 2 tablets by 0 020 (SENOKOT-S;PERICOLACE mouth 2 times a day ) 8.6-50 MG as needed for tabletIndications: constipation Hospice care docusate sodium Insert 1 enema 0 04/10/2020 (THEREVAC-SB rectally 1 time a MINI;ENEMEEZ MINI) day as needed for 283 MG constipation ENEMIndications: Hospice care sodium phosphates Insert 1 enema 0 (FLEET ADULT) enema rectally 1 time a day as needed for constipation gabapentin Take 1 capsule (100 30 capsule 0 04/05/202007/04 (NEURONTIN) 100 mg mg) by mouth on capsuleIndications: Thursday, , Back pain, and Thursday unspecified back Administer after location, unspecified dialysis back pain laterality, unspecified chronicity acetaminophen Take 1,300 mg by 0 (TYLENOL ARTHRITIS) mouth 3 times a day 650 mg CR tablet as needed for mild pain LORazepam (ATIVAN) Take 0.5-4 tablets 60 tablet 0 0 0.5 mg (0.25-2 mg) by mouth tabletIndications: Every 4 hours as Hospice care needed for other (Specify) (restlessness.) metoprolol tartrate Take 0.5 tablets 0 04/10/2020 04/15/2021 (LOPRESSOR) 25 mg (12.5 mg) by mouth 2 tabletIndications: times a day Hospice care documented as of this encounter Progress Notes Aida Gaffney MD - 04/09/2020 1:28 PM [facility] FOLLOW UP Impression and Plan: End-stage renal disease on dialysis: The patient is on Thursday outpatient schedule Dr. Dougherty Status urgent dialysis yesterday Volume status and chemistry are acceptable today. No metabolic acidosis Potassium at goal The patient is supposed to get hemodialysis today, but she and her family made pauliative care. therefore we are informed by the primary team that the patient will no longer want to receive dialysis.Kaylin inform hr outpatient HD unit. Please continue allopurinol and the renal diet We will sign off please recall if patient changes her mind or other need arise. The above are discussed with the primary team and HD team. Cecile winter is a 79yr old female admitted on 04/07/2020. Subjective Patient was seen and examined today. The patient is seen and examined in her room. No acute event overnight. She remains anuric. She received urgent dialysis yesterday and a 2 L fluid removed and she tolerated the procedure well. Physical Exam Vitals: 04/09/20 1000 04/09/20 1100 04/09/20 1200 04/09/20 1300 BP: 105/53 124/57 126/76 108/62 Pulse: 86 111 99 97 Resp: 24 19 15 18 Temp: 96.6 F (35.9 C) SpO2: 95% 100% Weight: Height: General Appearance: well developed, well nourished. No distress. HEENT: EOMI, Bilateral pupils are round and equal, no sclera icterus, O/P membrane moist Neck: supple, No JVD. Chest: clear to auscultation, no rales, no wheezes or rhonchi. Heart: S1, S2 present. RRR Abdomen: soft, nontender, nondistended, no masses or organomegaly. Extremities: no peripheral edema. Symmetric pedal pulses. Neurol: AAO x3 Skin: warm and dry Current Vital Signs Temp: 96.6 F (35.9 C) BP: 108/62 Pulse: 97 O2 Device: NC - no humidity O2 Flow Rate (L/min): 4 l/min Resp: 18 Pain Ratin (out of 10) Weight: 90.1 kg (198 lb 10.2 oz) SpO2: 100 % Intake and Output Intake/Output Summary (Last 24 hours) at 04/09/2020 1328 Last data filed at 04/09/2020 0600 Gross per 24 hour Intake 1622.17 ml Output 2004 ml Net -381.83 ml Allergies Allergies have been reviewed. Cecile is allergic to benemid [probenecid]; probenecid; latex; and tape [adhesives]. Recent labs Results for CECILESeptember ( ) as of 04/09/2020 13:32 Ref. Range 04/01/2020 07:07 04/02/2020 06:48 04/07/2020 23:59 04/08/2020 07:05 Glucose Latest Ref Range: 70 - 100 mg/dL 95 85 130 (H) 133 (H) Sodium Latest Ref Range: 135 - 145 meq/L 137 137 140 140 Potassium Latest Ref Range: 3.5 - 5.3 meq/L 4.1 4.6 4.6 5.0 Chloride Latest Ref Range: 99 - 110 meq/L 96 (L) 94 (L) 96 (L) 99 CO2 Latest Ref Range: 20 - 29 meq/L 30 (H) 33 (H) 32 (H) 28 Anion Gap with K Latest Ref Range: 6 - 20 meq/L 15 15 17 18 BUN Latest Ref Range: 6 - 22 mg/dL 48 (H) 32 (H) 29 (H) 30 (H) Creatinine Latest Ref Range: 0.60 - 1.10 mg/dL 4.39 (H) 2.98 (H) 5.01 (H) 5.09 (H) BUN/Creatinine Ratio Latest Ref Range: 10.0 - 25.0 10.9 10.7 5.8 (L) 5.9 (L) Calcium Latest Ref Range: 8.5 - 10.5 mg/dL 8.8 8.9 9.1 8.3 (L) Ionized Calcium Latest Ref Range: 1.12 - 1.32 mmol/L 1.20 Corrected Calcium Latest Ref Range: 8.5 - 10.5 mg/dL 9.9 9.9 9.7 Phosphorus Latest Ref Range: 2.5 - 4.5 mg/dL 5.0 (H) 3.8 Magnesium Latest Ref Range: 1.8 - 2.4 mg/dL 1.6 (L) 1.9 Bilirubin Total Latest Ref Range: 0.2 - 1.2 mg/dL 0.5 Alkaline Phosphatase Latest Ref Range: 30 - 150 U/L 207 (H) ALT - SGPT Latest Ref Range: 0 - 55 U/L 21 AST - SGOT Latest Ref Range: 0 - 35 U/L 35 CK Latest Ref Range: 30 - 170 U/L 36 LDH Total Latest Ref Range: 125 - 245 U/L 297 (H) Protein Total Latest Ref Range: 6.0 - 8.2 g/dL 6.6 Albumin Latest Ref Range: 3.5 - 5.0 g/dL 2.6 (L) 2.8 (L) 3.3 (L) Ferritin Latest Ref Range: 5 - 200 ng/mL 2,882 (H) CRP Latest Ref Range: 0.0 - 8.0 mg/L 13.8 (H) Lactic Acid Latest Ref Range: 0.5 - 2.2 mmol/L 2.1 1.4 Procalcitonin Latest Ref Range: <0.07 ng/mL 0.44 (H) eGFR Latest Ref Range: >=60 mL/min/1.73m2 12 (L) 18 (L) 10 (L) 10 (L) eGFR Non- Latest Ref Range: >=60 mL/min/1.73m2 10 (L) 15 (L) 8 (L) 8 (L) Results for September ( ) as of 04/09/2020 13:32 Ref. Range 03/30/2020 05:49 04/02/2020 06:48 04/07/2020 23:59 04/08/2020 09:19 04/09/2020 06:15 WBC Latest Ref Range: 4.0 - 11.0 K/uL 5.4 6.5 22.2 (H) 20.0 (H) 11.0 RBC Latest Ref Range: 3.80 - 5.30 M/uL 2.70 (L) 2.99 (L) 3.61 (L) 2.83 (L) 2.68 (L) Hemoglobin Latest Ref Range: 11.5 - 15.8 g/dL 8.5 (L) 9.6 (L) 11.5 9.2 (L) 8.6 (L) Hematocrit Latest Ref Range: 35.0 - 45.0 % 27.0 (L) 30.5 (L) 37.0 28.2 (L) 26.8 (L) MCV Latest Ref Range: 80.0 - 98.0 fL 100.0 (H) 102.0 (H) 102.5 (H) 99.6 (H) 100.0 (H) MCH Latest Ref Range: 25.5 - 34.0 pg 31.5 32.1 31.9 32.5 32.1 MCHC Latest Ref Range: 31.5 - 36.5 g/dL 31.5 31.5 31.1 (L) 32.6 32.1 RDW-CV Latest Ref Range: 11.5 - 15.5 % 14.1 14.3 14.7 14.8 14.7 RDW-SD Latest Ref Range: 35.5 - 50.0 fl 50.9 (H) 51.4 (H) 55.8 (H) 53.7 (H) 54.4 (H) Platelet Count Latest Ref Range: 140 - 400 K/uL 240 236 269 193 179 MPV Latest Ref Range: 8.5 - 12.0 fL 10.5 9.8 10.2 11.0 10.8 Medications in the hospital: Current Facility-Administered Medications Medication Dose Route Frequency Provider Last Rate Last Admin metoprolol tartrate (LOPRESSOR) half-tablet 12.5 mg 12.5 mg Oral 2 times a day Eric Reyes MD LORazepam (ATIVAN) tablet 0.25-2 mg 0.25-2 mg Oral Every 4 hours prn Eric Reyes MD Or LORazepam (ATIVAN) tablet 0.25-2 mg 0.25-2 mg Buccal Every 4 hours prn Eric Reyes MD Or LORazepam (ATIVAN) 2 mg/mL injection solution 0.25-2 mg 0.25-2 mg IV Every 4 hours prn Eric Reyes MD Or LORazepam (ATIVAN) 2 mg/mL injection solution 0.25-2 mg 0.25-2 mg Subcutaneous Every 4 hours prn Eric Reyes MD glycopyrrolate (ROBINUL) 1 mg/5 mL injection solution (syringe) 100-200 mcg 0.1-0.2 mg IV Every4 hours prn Eric Reyes MD HYDROmorphone (DILAUDID) injection solution (conc: 0.5 mg/0.5mL) 0.25 mg 0.25 mg IV Every 2 hours prn rEic Reyes MD [START ON 04/10/2020] azithromycin (ZITHROMAX) tablet 250 mg 250 mg Oral Daily Eric Reyes MD sodium chloride 0.9% flush (adult) 10 mL 10 mL IV 2 times a day and prn Misael Reyes MD 10mL at 04/08/202045 acetaminophen (TYLENOL) tablet 650 mg 650 mg Oral Every 4 hours prn Misael Reyes MD 650 mgat 04/09/20 08 melatonin tablet 3 mg 3 mg Oral Bedtime prn Misael Reyes MD 3 mg at 04/08/202044 senna-docusate sodium (SENOKOT-S;PERICOLACE) tablet 2 tablet 2 tablet Oral 2 times a day prn Misael Reyes MD And bisacodyl (DULCOLAX) suppository 10 mg 10 mg Rectal 1 time a day prn Misael Reyes MD And docusate sodium (THEREVAC-SB MINI;ENEMEEZ MINI) 283 MG enema 1 enema 1 enema Rectal 1 time a day prn Misael Reyes MD ondansetron (ZOFRAN ODT) dispersible tablet 4 mg 4 mg Oral 4 times a day prn Misael Reyes MD And ondansetron (ZOFRAN) injection solution 4 mg 4 mg IV 4 times a day prn Misael Reyes MD 4 mg at 04/09/20 1016 calcium carbonate (TUMS) chewable tablet 1,000 mg 1,000 mg Oral Every 4 hours prn Misael Reyes MD [START ON 04/10/2020] gabapentin (NEURONTIN) capsule 100 mg 100 mg Oral 1 time a day Tues Thur Sat Misael Reyes MD levothyroxine tablet 50 mcg 50 mcg Oral 1 time a day before breakfast Misael Reyes MD 50 mcg at 04/09/20 0637 cefepime (MAXIPIME) 1000 mg/10 mL in sterile water IV syringe 1,000 mg IV Every 24 hours Misael Reyes MD 1,000 mg at 04/08/20 1715 allopurinol (ZYLOPRIM) tablet 150 mg 150 mg Oral daily Misael Reyes MD 150 mg at 04/09/20 0822 alteplase (CATHFLO ACTIVASE) injection 1 mg 1 mg IV catheter clearance PRN per parameter Rupal Serrato MD midodrine (PROAMATINE) tablet 10 mg 10 mg Oral 1 time a day prn Rupal Serrato MD 10 mgat 04/08/20 1312 midodrine (PROAMATINE) tablet 10 mg 10 mg Oral 1 time a day prn Rupal Serrato MD 10 mgat 04/08/20 1447 midodrine (PROAMATINE) tablet 10 mg 10 mg Oral PRN per parameter Rupal Serrato MD 10 mg at 04/08/20 1606 polyethylene glycol (MIRALAX) packet 1 packet 1 packet Oral 1 time a day prn Tono Sweeney MD senna-docusate sodium (SENOKOT-S;PERICOLACE) tablet 1 tablet 1 tablet Oral 1 time a day prn Tono Sweeney MD 1 tablet at 04/08/202056 Cici Montes [facility] - 04/09/2020 1:05 AM CST 04/09/2020 1:05 AM WINDOW SHADE ESTIMATOR - Patient was seen by pharmacy. HOME MEDICATIONS have been reconciled and updated to match the patient's home usage. Medications added: Vitamin D, Miralax, Fleets enema Medications removed: None Medications changed: None Prior to Admission Medications Prescriptions Last Dose Informant Patient Reported? Taking? acetaminophen (TYLENOL ARTHRITIS) 650 mg CR tablet Unknown at Unknown time Self Yes Yes Sig: Take 1,300 mg by mouth 3 times a day as needed for mild pain allopurinol (ZYLOPRIM) 300 mg tablet 04/07/2020 at Unknown time Self No Yes Sig: Take 0.5 tablets (150 mg) by mouth 1 time per day calcium acetate (PHOSLO) 667 MG capsule Past Week at Unknown time Self No Yes Sig: Take 2 capsules (1,334 mg) by mouth 3 times a day with meals Do not give on an empty stomach, must be given with food to be effective. Patient taking differently: Take 1,334 mg by mouth 3 times a day with meals Do not give on an empty stomach, must be given with food to be effective. Takes only with meals (~2x/day) cyanocobalamin (VITAMIN B-12) 1000 mcg tablet 04/07/2020 at Unknown time Self No Yes Sig: Take 1 tablet (1,000 mcg) by mouth 1 time per day darbepoetin (ARANESP) 25 mcg/mL SOLN Past Week at Unknown time Self Yes Yes Sig: Inject 0-150 mcg subcutaneously Indications: Final Stages of Kidney Disease Instructions: *Doseadjusted by Dialysis PharmD-if on hemodialysis, to be given at outpatient dialysis unit. Call PharmD at [phone] for questions. *Do not change this entry*. doxercalciferol (HECTOROL) 4 mcg/2 mL SOLN Past Week at Unknown time Self Yes Yes Sig: Administer 0-10 mcg intravenously Instructions: *Dose adjusted by Dialysis PharmD-if on hemodialysis, to be given at outpatient dialysis unit. Call PharmD at [phone] for questions. *Do not change this entry*. gabapentin (NEURONTIN) 100 mg capsule Unknown at Unknown time No Yes Sig: Take 1 capsule (100 mg) by mouth on Thursday, , and Thursday Administer after dialysis levothyroxine 50 mcg tablet 04/07/2020 at Unknown time Self No Yes Sig: TAKE 1 TABLET BY MOUTH EVERY MORNING lidocaine (LIDODERM) 5% patch Unknown at Unknown time No Yes Sig: Apply 1 patch topically 1 time per day Patches may be left on for up 12 hours in a 24 hour period. Patient taking differently: Apply 1 patch topically 1 time per day Patches may be left on for up 12 hours in a 24 hour period. Apply to back. lidocaine-prilocaine (EMLA) 2.5-2.5 % cream Unknown at Unknown time No Yes Sig: Apply sparingly to dialysis access site at least 45 minutes prior to dialysis. Supplied through dialysis only. loperamide (IMODIUM) 2 mg capsule Unknown at Unknown time Self No Yes Sig: Take 2 capsules (4 mg) by mouth on Thursday,Thursday,, and Thursday. prior to dialysis Patient taking differently: Take 4 mg by mouth on Thursday, Thursday, and Thursday prior to dialysis metoprolol tartrate (LOPRESSOR) 25 mg tablet 04/07/2020 at Unknown time No Yes Sig: Take 0.5 tablets (12.5 mg) by mouth on Thursday, , Thursday, and Thursday multivitamin (CERTAVITE WITH ANTIOXIDANTS) TABS 04/07/2020 at Unknown time Self No Yes Sig: Take 2 tablets by mouth 1 time per day Patient taking differently: Take 2 tablets by mouth 1 time per day Maxivision ondansetron (ZOFRAN ODT) 4 mg dispersible tablet Unknown at Unknown time No Yes Sig: Take 1 tablet (4 mg) by mouth 4 times a day as needed for nausea or vomiting polyethylene glycol (MIRALAX) 17 GM/SCOOP powder Yes Yes Sig: Take 1 capful by mouth 1 time a day as needed for constipation Dissolve in 4 to 8 ounces of water, juice, soda, coffee, tea. sodium ferric gluconate complex in sucrose (FERRLECIT) 12.5 MG/ML SOLN Unknown at Unknown time Self Yes Yes Sig: Administer 0-125 mg intravenously Instructions: *Dose adjusted by Dialysis PharmD-if on hemodialysis, to be given at outpatient dialysis unit. Call PharmD at [phone] for questions. *Do not change this entry*. sodium phosphates (FLEET ADULT) enema Yes Yes Sig: Insert 1 enema rectally 1 time a day as needed for constipation vitamin D3, cholecalciferol, 50 mcg (2000 unit) tablet Yes Yes Sig: Take 50 mcg by mouth 1 time per day vitamin K 100 MCG TABS tablet Past Week at Unknown time Self Yes Yes Sig: Take 100 mcg by mouth 1 time per day warfarin (JANTOVEN) 2.5 MG tablet Past Week at Unknown time Self No Yes Sig: Managed by [place] [facility]. Take 7.5 mg every Thursday and Thursday. 5 mg all other days of the week. Facility-Administered Medications: None Fco Liectronically signed by Cici Rodriguez RPh at 04/09/2020 1:06 AM CSTCici Rodriguez RPh - 04/08/2020 4:35 AM CST Vancomycin Initial Consult Note Ms. Gilbert was admitted on 04/07/2020 and today has been initiated on Vancomycin per pharmacy protocol for possible pneumonia. Labs: WBC Date/Time Value Ref Range Status 04/07/2020 11:59 PM 22.2 (H) 4.0 - 11.0 K/uL Final 05/24/2018 01:26 PM 5.4 4.0 - 11.0 K/uL Final 06/01/2015 11:00 AM 5.9 4.0 - 10.0 x10^3/UL Final Max Temperature: Temp (24hrs), Av F (36.7 C), Min:98 F (36.7 C), Max:98 F (36.7 C) Other Active Antimicrobial Agents: Cefepime Plan: We have initiated intravenous Vancomycin therapy at a dose of 1,750 mg now, then pharmacy will re-dose based on her hemodialysis schedule. Pharmacy will monitor and if indicated, adjust dose and/or frequency per the Pharmacy and Therapeutics Committee approved pharmacokinetic service policy. Thank you very much for the consult. We will continue to follow along with you. Cici Rodriguez RPh documented in this encounter H&P Notes Misael Reyes MD - 04/08/2020 2:06 AM CST Hospital Admission History and Physical Assessment / Plan Principal Problem: Acute respiratory failure with hypoxia and hypercapnia (HCC) Active Problems: Hypothyroidism Permanent atrial fibrillation (HCC) Biventricular congestive heart failure (HCC) Renal failure ESRD (end stage renal disease) on dialysis (HCC) Chronic anticoagulation NSTEMI (non-ST elevated myocardial infarction) ([facility]) #Acute hypoxic hypercapnic respiratory failure 2/2 likely community acquired pneumonia with risk formultidrug-resistance #NSTEMI, likely Type 2 vs Type 1 #ESRD requiring HD MWF, last run on 04/05/2020 #Subtherapeutic INR 1.5-2.0 with hx of GI bleed EKG: A fib with RVR with rate of 121 Echo: Early 03/2020 showed EF of 65% without RWMA; Trop: 0.409; BNP 998 WBC: 22.2 ; Hgb of 11.5; K: 4.6 ; Cr 5.01 ; Lactic acid 2.1. Pro viktoriya: 0.44 INR: 0.9 and has been taking her coumadin COVID (-); Blood cultures pending CXR: Cardiomegaly, pleural effusions and interstitial edema with retrocardiac atelectatic or infiltrative changes Plan: -IMC status; Tele, Echo; Currently refusing BiPAP -Cardiology, Nephrology; appreciate their recommendations -Trend troponin, AM Labs, -IV Abx, Heparin gtt -I/O; Daily weight #Recent unstable vertebral burst fracture NS evaluated during last admission. Recommended conservative management. Was recently fitted to TLSObrace. Patient does not comply with wearing it. Plan: -Monitor -Recommend TLSO brace be brought from [facility] -NS is recommending TLSO brace at all times and applied supine Chronic conditions: Hypothyroidism: Levothyroxine Sleep apnea: Refusing CPAP/BiPAP Gout: Holding Allopurinol, Cont Gabapentin CODE: DNR Diet: NPO except meds DVT PPx: Heparin gtt HPI / History / ROS 79 yoF with hx of chronic diastolic heart failure, a fib with RVR on anticoagulation, ESRD on HD MWF, hypothyroidism, ERICA, gout presented to the ED from [facility] for concerns of not feeling well for 1-2 weeks and increase in sputum production for one week. Recently discharged from [facility] on 04/02/2020 where she was treated for a mechanical fall resulting inunstable thoracic burst vertebral fracture. She was evaluated by NS and recommended conservative management. She was also discharged on 03/15/2020 for concerns of hypotension, SOB, palpitations, and dysphagia. EP was consulted and recommended Metoprolol 12.5 mg on non-HD days. She presented to the ED for chest tightness, shortness of breath, and productive cough. She noted the chest "tightness" late afternoon on 04/07. She was sitting in her chair when she noticed the pain. She noted SOB, however, she notes always being SOB. No worsening of her SOB. She also noted an increase in cough with new production. Also noted dyspnea on exertion with very minimal activity. In the ED, EKG showed A fib with RVR with rate of 121. Trop was 0.409. BNP of 998. CXR showed cardiomegaly, pleural effusions and interstitial edema with retrocardiac atelectatic or infiltrative changes. VBG showed CO2 of 71, PO2 of 20. Was palced on Oxymask and was refusing BiPAP when I was speaking with patient. Leukocytosis of 22.2. Lactic normal. Blood cultures sent. She was given Vanc and Cefepime. 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) Other and unspecified angina pectoris Hypothyroidism Permanent atrial fibrillation ([facility]) Sleep apnea Gout Impaired fasting glucose Biventricular congestive heart failure ([facility]) Marginal ulcer Dysphagia Health care maintenance Hyperkalemia Renal failure Pressure injury of left buttock, stage 2 (HCC) [place] (acute kidney injury) ([facility]) Anemia of chronic renal failure, stage 5 ([facility]) Iron (Fe) deficiency anemia ESRD (end stage renal disease) on dialysis ([facility]) Non-ST elevation (NSTEMI) myocardial infarction ([facility]) Secondary hyperparathyroidism of renal origin (HCC) Chronic diastolic CHF (congestive heart failure) ([facility]) Chronic anticoagulation Trauma NSTEMI (non-ST elevated myocardial infarction) ([facility]) Acute respiratory failure with hypoxia and hypercapnia ([facility]) Prior to Admission Medications Prescriptions Last Dose Informant Patient Reported? Taking? acetaminophen (TYLENOL ARTHRITIS) 650 mg CR tablet Self Yes No Sig: Take 1,300 mg by mouth 3 times a day as needed for mild pain allopurinol (ZYLOPRIM) 300 mg tablet Self No No Sig: Take 0.5 tablets (150 mg) by mouth 1 time per day calcium acetate (PHOSLO) 667 MG capsule Self No No Sig: Take 2 capsules (1,334 mg) by mouth 3 times a day with meals Do not give on an empty stomach, must be given with food to be effective. Patient taking differently: Take 1,334 mg by mouth 3 times a day with meals Do not give on an empty stomach, must be given with food to be effective. Takes only with meals (~2x/day) cyanocobalamin (VITAMIN B-12) 1000 mcg tablet Self No No Sig: Take 1 tablet (1,000 mcg) by mouth 1 time per day darbepoetin (ARANESP) 25 mcg/mL SOLN Self Yes No Sig: Inject 0-150 mcg subcutaneously Indications: Final Stages of Kidney Disease Instructions: *Doseadjusted by Dialysis PharmD-if on hemodialysis, to be given at outpatient dialysis unit. Call PharmD at [phone] for questions. *Do not change this entry*. doxercalciferol (HECTOROL) 4 mcg/2 mL SOLN Self Yes No Sig: Administer 0-10 mcg intravenously Instructions: *Dose adjusted by Dialysis PharmD-if on hemodialysis, to be given at outpatient dialysis unit. Call PharmD at [phone] for questions. *Do not change this entry*. gabapentin (NEURONTIN) 100 mg capsule No No Sig: Take 1 capsule (100 mg) by mouth on Thursday, , and Thursday Administer after dialysis levothyroxine 50 mcg tablet Self No No Sig: TAKE 1 TABLET BY MOUTH EVERY MORNING lidocaine (LIDODERM) 5% patch No No Sig: Apply 1 patch topically 1 time per day Patches may be left on for up 12 hours in a 24 hour period. lidocaine-prilocaine (EMLA) 2.5-2.5 % cream No No Sig: Apply sparingly to dialysis access site at least 45 minutes prior to dialysis. Supplied through dialysis only. loperamide (IMODIUM) 2 mg capsule Self No No Sig: Take 2 capsules (4 mg) by mouth on Thursday,Thursday,, and Thursday. prior to dialysis Patient taking differently: Take 4 mg by mouth on Thursday, Thursday, and Thursday prior to dialysis metoprolol tartrate (LOPRESSOR) 25 mg tablet No No Sig: Take 0.5 tablets (12.5 mg) by mouth on Thursday, , Thursday, and Thursday multivitamin (CERTAVITE WITH ANTIOXIDANTS) TABS Self No No Sig: Take 2 tablets by mouth 1 time per day Patient taking differently: Take 2 tablets by mouth 1 time per day Maxivision ondansetron (ZOFRAN ODT) 4 mg dispersible tablet No No Sig: Take 1 tablet (4 mg) by mouth 4 times a day as needed for nausea or vomiting sodium ferric gluconate complex in sucrose (FERRLECIT) 12.5 MG/ML SOLN Self Yes No Sig: Administer 0-125 mg intravenously Instructions: *Dose adjusted by Dialysis PharmD-if on hemodialysis, to be given at outpatient dialysis unit. Call PharmD at [phone] for questions. *Do not change this entry*. vitamin K 100 MCG TABS tablet Self Yes No Sig: Take 100 mcg by mouth 1 time per day warfarin (JANTOVEN) 2.5 MG tablet Self No No Sig: Managed by [place] [facility]. Take 7.5 mg every Thursday and Thursday. 5 mg all other days of the week. Facility-Administered Medications: None Allergies Allergen Reactions Benemid [Probenecid] Angioedema (High) Probenecid Hives (High) and Rash Latex Unknown/Not Verified Tape [Adhesives] Itching and Other (Specify in Comments) Breaks out. Past Medical History: Diagnosis Date Anemia of chronic renal failure, stage 5 (HCC) Atrial fibrillation (HCC) Biventricular congestive heart failure (HCC) Blood transfusion without reported diagnosis Had 5 blood transfusion in 2018 due to GI blood Cardiac arrest (HCC) Cataract Needs Cataract removal CHF (congestive heart failure) (HCC) Diabetes mellitus (HCC) 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) Past Surgical History: Procedure Laterality Date A-V SHUNT FISTULA Left 05/25/2018 Procedure: ARTERIO VENOUS FISTULA PLACEMENT GRAFT;; Surgeon: Felipe De Anda MD A-V SHUNT FISTULA Left 05/28/2018 Procedure: LEFT ARM FISTULA REVISION;; Surgeon: Felipe De Anda MD APPENDECTOMY CARPAL TUNNEL ENDOSCOPIC CHOLECYSTECTOMY GASTRIC BYPASS UPPER ENDOSCOPY N/A 03/24/2016 Procedure: UPPER ENDOSCOPY;; Surgeon: Willy Lozano DO UPPER ENDOSCOPY N/A 02/11/2018 Procedure: UPPER ENDOSCOPY;; Surgeon: Ofelia Wagoner MD UPPER ENDOSCOPY N/A 09/08/2019 Procedure: UPPER ENDOSCOPY;; Surgeon: Neli Ohara MD UPPER ENDOSCOPY N/A 03/16/2020 Procedure: UPPER ENDOSCOPY;; Surgeon: Jarod Carlos MD Family History Problem Relation Age of Onset Heart Failure Father Heart Failure Mother Not otherwise listed - Cancer Brother pancreratic Parkinsonism Brother Social History Socioeconomic History Marital status: Single Spouse name: Not on file Number of children: Not on file Years of education: 12 Highest education level: Not on file Occupational History Occupation: retired hospice manager Tobacco Use Smoking status: Never Smoker Smokeless tobacco: Never Used Substance and Sexual Activity Alcohol use: No Drug use: No Sexual activity: Not Currently Social History Narrative Never . Comes to clinic only infrequently because of mild social phobia. Last CPE 01/26/18. Review of Systems Review of Systems Constitutional: Positive for chills. Negative for fatigue and fever. HENT: Positive for rhinorrhea. Negative for congestion, postnasal drip, sinus pain and sore throat. Respiratory: Positive for cough and chest tightness. Negative for shortness of breath and wheezing. Cardiovascular: Positive for palpitations. Negative for chest pain and leg swelling. Gastrointestinal: Negative for abdominal distention, abdominal pain, diarrhea, nausea and vomiting. Genitourinary: Negative for flank pain, frequency and urgency. Musculoskeletal: Positive for back pain. Negative for myalgias. Skin: Negative for color change and wound. Neurological: Positive for dizziness and light-headedness. Negative for weakness. Psychiatric/Behavioral: Negative for agitation. The patient is not nervous/anxious. Physical / Results Current Vital Signs Temp: 98 F (36.7 C) BP: 95/59 SpO2: 95 % Resp: 22 Pulse: 120 O2 Device: BiPAP O2 Flow Rate (L/min): 9 l/min Pain Ratin Physical Exam Constitutional: Appearance: Normal appearance. HENT: Head: Normocephalic. Mouth/Throat: Pharynx: No oropharyngeal exudate. Eyes: General: No scleral icterus. Extraocular Movements: Extraocular movements intact. Pupils: Pupils are equal, round, and reactive to light. Cardiovascular: Rate and Rhythm: Tachycardia present. Rhythm irregular. Heart sounds: Murmur present. Pulmonary: Effort: Pulmonary effort is normal. No respiratory distress. Breath sounds: No wheezing. Comments: Oxymask in place Chest: Chest wall: No tenderness. Abdominal: General: Abdomen is flat. There is no distension. Tenderness: There is no abdominal tenderness. Musculoskeletal: Normal range of motion. General: No swelling. Right lower leg: No edema. Left lower leg: No edema. Skin: General: Skin is warm. Capillary Refill: Capillary refill takes less than 2 seconds. Neurological: General: No focal deficit present. Mental Status: She is alert. Psychiatric: Mood and Affect: Mood normal. Behavior: Behavior normal. OW SHADE ESTIMATOR Associated attestation - Imelda Molina MD - 04/08/2020 7:55 AM CSTI discussed the patient with the resident and personally interviewed and examined the patient. I agree with the patient's diagnosis and management. AHHRF multifactorial 2/2 to PNA (cap with mdro with hospitalization, vs aspiration with dysphagia and non-adherence to modified diet), appears to have some component of chf on cxr and supportive with bnp and elevated jvd Nstemi - further eval, on heparin, give asa x 1 (with ppi x 1 with hx of gib) and agree with card eval, echo O/w refer to res note documented in this encounter Consult Notes Rupal Serrato MD - 04/08/2020 10:16 AM CST NEPHROLOGY HOSPITAL CONSULT Cecilewinter is a 79yr old female admitted on 04/07/2020. PCP: Catarina Salvador DO REASON FOR CONSULT: ESRD management CHIEF COMPLAINT: Shortness of breath HISTORY OF PRESENTING ILLNESS: Patient is a pleasant 79 y/o lady, with hx of chronic diastolic heart failure, a fib with RVR on anticoagulation, ESRD on HD MWF, hypothyroidism, ERICA, gout presented to the ED from [facility] for concerns of not feeling well for 1-2 weeks and nausea and worsening SOB. Nephrology is consulted for ESRD management. Nephrology is consulted for ESRD management. Recently discharged from [facility] on 04/02/2020 where she was treated for a mechanical fall resulting inunstable thoracic burst vertebral fracture. She was evaluated by NS and recommended conservative management. She was also discharged on 03/15/2020 for concerns of hypotension, SOB, palpitations, and dysphagia. EP was consulted and recommended Metoprolol 12.5 mg on non-HD days. She presented to the ED for chest tightness, shortness of breath, and productive cough. She noted the chest "tightness" late afternoon on 04/07. She was sitting in her chair when she noticed the pain. She noted SOB, however, she notes always being SOB. No worsening of her SOB. She also noted an increase in cough with new production. Also noted dyspnea on exertion with very minimal activity. In the ED, EKG showed A fib with RVR with rate of 121. Trop was 0.409. BNP of 998. CXR showed cardiomegaly, pleural effusions and interstitial edema with retrocardiac atelectatic or infiltrative changes. VBG showed CO2 of 71, PO2 of 20. Was palced on Oxymask and was refusing BiPAP when I was speaking with patient. Leukocytosis of 22.2. Lactic normal. Blood cultures sent. She was given Vanc and Cefepime. Remains hypotensive Past Medical History Cecile has a past medical history of Anemia of chronic renal failure, stage 5 ([facility]), Atrial fibrillation (HCC), Biventricular congestive heart failure (HCC), Blood transfusion without reported diagnosis, Cardiac arrest ([facility]), Cataract, CHF (congestive heart failure) ([facility]), Diabetes mellitus (HCC), Dysphagia, ESRD (end stage renal disease) on dialysis ([facility]), Gastroparesis, Hypertension, HERNANDEZ (iron deficiency anemia), IFG (impaired fasting glucose), Kidney disease, Macular degeneration, Nontoxic uninodular goiter, Obesity, Pressure injury of left buttock, stage 2 (HCC), Raynaud's syndrome, Sleep apnea, and Varicose veins of lower extremities with ulcer ([facility]). She also has no past medical history of Clotting disorder ([facility]). Past Surgical History Cecile has a past surgical history that includes cholecystectomy; gastric bypass; carpal tunnel endoscopic; upper endoscopy (N/A, 03/24/2016); upper endoscopy (N/A, 02/11/2018); a-v shunt fistula (Left, 05/25/2018); a-v shunt fistula (Left, 05/28/2018); appendectomy; upper endoscopy (N/A, 09/08/2019); and upper endoscopy (N/A, 03/16/2020). Prior to Admission Medications Medications Prior to Admission Medication Sig Dispense Refill Last Dose gabapentin (NEURONTIN) 100 mg capsule Take 1 capsule (100 mg) by mouth on Thursday, , andThursday Administer after dialysis 30 capsule 0 Unknown at Unknown time lidocaine-prilocaine (EMLA) 2.5-2.5 % cream Apply sparingly to dialysis access site at least 45 minutes prior to dialysis. Supplied through dialysis only. 30 g 2 Unknown at Unknown time lidocaine (LIDODERM) 5% patch Apply 1 patch topically 1 time per day Patches may be left on for up 12 hours in a 24 hour period. 30 patch 0 Unknown at Unknown time ondansetron (ZOFRAN ODT) 4 mg dispersible tablet Take 1 tablet (4 mg) by mouth 4 times a day as needed for nausea or vomiting 20 tablet 0 Unknown at Unknown time metoprolol tartrate (LOPRESSOR) 25 mg tablet Take 0.5 tablets (12.5 mg) by mouth on Thursday, , Thursday, and Thursday 8 tablet 0 04/07/2020 at Unknown time acetaminophen (TYLENOL ARTHRITIS) 650 mg CR tablet Take 1,300 mg by mouth 3 times a day as needed for mild pain Unknown at Unknown time vitamin K 100 MCG TABS tablet Take 100 mcg by mouth 1 time per day Past Week at Unknown time warfarin (JANTOVEN) 2.5 MG tablet Managed by [place] [facility]. Take 7.5 mg every Thursday and Thursday. 5 mg all other days of the week. 180 tablet 12 Past Week at Unknown time calcium acetate (PHOSLO) 667 MG capsule Take 2 capsules (1,334 mg) by mouth 3 times a day with meals Do not give on an empty stomach, must be given with food to be effective. (Patient taking differently: Take 1,334 mg by mouth 3 times a day with meals Do not give on an empty stomach, must be givenwith food to be effective. Takes only with meals (~2x/day)) 540 capsule 3 Past Week at Unknown time allopurinol (ZYLOPRIM) 300 mg tablet Take 0.5 tablets (150 mg) by mouth 1 time per day 45 tablet3 04/07/2020 at Unknown time levothyroxine 50 mcg tablet TAKE 1 TABLET BY MOUTH EVERY MORNING 90 tablet 3 04/07/2020 at Unknown time cyanocobalamin (VITAMIN B-12) 1000 mcg tablet Take 1 tablet (1,000 mcg) by mouth 1 time per day 30 tablet 3 04/07/2020 at Unknown time loperamide (IMODIUM) 2 mg capsule Take 2 capsules (4 mg) by mouth on Thursday,Thursday,, and Thursday. prior to dialysis (Patient taking differently: Take 4 mg by mouth on Thursday, Thursday, and Thursday prior to dialysis ) 20 capsule 0 Unknown at Unknown time multivitamin (CERTAVITE WITH ANTIOXIDANTS) TABS Take 2 tablets by mouth 1 time per day (Patient taking differently: Take 2 tablets by mouth 1 time per day Maxivision) 90 tablet 0 04/07/2020 at Unknown time darbepoetin (ARANESP) 25 mcg/mL SOLN Inject 0-150 mcg subcutaneously Indications: Final Stages of Kidney Disease Instructions: *Dose adjusted by Dialysis PharmD-if on hemodialysis, to be given at outpatient dialysis unit. Call PharmD at [phone] for questions. *Do not change this entry*. Past Week at Unknown time sodium ferric gluconate complex in sucrose (FERRLECIT) 12.5 MG/ML SOLN Administer 0-125 mg intravenously Instructions: *Dose adjusted by Dialysis PharmD-if on hemodialysis, to be given at outpatient dialysis unit. Call PharmD at [phone] for questions. *Do not change this entry*. Unknown at Unknown time doxercalciferol (HECTOROL) 4 mcg/2 mL SOLN Administer 0-10 mcg intravenously Instructions: *Doseadjusted by Dialysis PharmD-if on hemodialysis, to be given at outpatient dialysis unit. Call PharmD at [phone] for questions. *Do not change this entry*. Past Week at Unknown time Medications in the hospital: Current Facility-Administered Medications Medication Dose Route Frequency Provider Last Rate Last Admin sodium chloride 0.9% flush (adult) 10 mL 10 mL IV 2 times a day and prn Misael Reyes MD acetaminophen (TYLENOL) tablet 650 mg 650 mg Oral Every 4 hours prn Misael Reyes MD 650 mgat 04/08/20 0609 melatonin tablet 3 mg 3 mg Oral Bedtime prn Misael Reyes MD senna-docusate sodium (SENOKOT-S;PERICOLACE) tablet 2 tablet 2 tablet Oral 2 times a day prn Misael Reyes MD And bisacodyl (DULCOLAX) suppository 10 mg 10 mg Rectal 1 time a day prn Misael Reyes MD And docusate sodium (THEREVAC-SB MINI;ENEMEEZ MINI) 283 MG enema 1 enema 1 enema Rectal 1 time a day prn Misael Reyes MD ondansetron (ZOFRAN ODT) dispersible tablet 4 mg 4 mg Oral 4 times a day prn Misael Reyes MD And ondansetron (ZOFRAN) injection solution 4 mg 4 mg IV 4 times a day prn Misael Reyes MD 4 mg at 04/08/20 0218 calcium carbonate (TUMS) chewable tablet 1,000 mg 1,000 mg Oral Every 4 hours prn Misael Reyes MD calcium acetate (PHOSLO) 667 MG capsule 1,334 mg 1,334 mg Oral 3 times a day with meals Misael Reyes MD [START ON 04/10/2020] gabapentin (NEURONTIN) capsule 100 mg 100 mg Oral 1 time a day markus Shafer Sat Misael Reyes MD levothyroxine tablet 50 mcg 50 mcg Oral 1 time a day before breakfast Misael Reyes MD 50 mcg at 04/08/20 0609 metoprolol tartrate (LOPRESSOR) half-tablet 12.5 mg 12.5 mg Oral 1 time a day Mesfin jesus Sat Misael Smith MD multivitamin therapeutic with minerals (THERA-M) tablet 2 tablet 2 tablet Oral daily Misael Reyes MD 2 tablet at 04/08/20 0943 cefepime (MAXIPIME) 1000 mg/10 mL in sterile water IV syringe 1,000 mg IV Every 24 hours Misael Reyes MD vancomycin therapy reminder 1 each Does not apply Upon permission Misael Reyes MD hEParin (50 units/mL) in D5W premixed IV solution (STANDARD-weight based) 0-50 Units/kg/hr IV Titrate Misael Reyes MD 27.3 mL/hr at 04/08/20 0433 15 Units/kg/hr at 04/08/20 0433 heparin (porcine) (5000 units/1 mL) IV dose 3,200 Units 35 Units/kg IV PRN per parameter Misael Reyes MD Or heparin (porcine) (5000 units/1 mL) IV dose 6,400 Units 70 Units/kg IV PRN per parameter Misael Reyes MD .Anticoagulation (WARFARIN) therapy nursing reminder 1 each Does not apply Reminder Misael Reyes MD allopurinol (ZYLOPRIM) tablet 150 mg 150 mg Oral daily Misael Reyes MD 150 mg at 04/08/20 0943 [START ON 04/09/2020] azithromycin (ZITHROMAX) 500 mg in sodium chloride 0.9% 250 mL 500 mg IV Every 24 hours Misael Reyes MD alteplase (CATHFLO ACTIVASE) injection 1 mg 1 mg IV catheter clearance PRN per parameter Rupal Serrato MD sodium chloride 0.9% (bolus) IV solution 200 mL 200 mL IV PRN per parameter Rupal Serrato MD lidocaine-prilocaine (EMLA) 2.5-2.5 % cream Apply externally 1 time Rupal Serrato MD cyanocobalamin (VITAMIN B-12 DOTS) sublingual tablet 1,000 mcg 1,000 mcg Sublingual Daily Zhang Klein MD 1,000 mcg at 04/08/20 1010 Allergies Allergies have been reviewed. Cecile is allergic to benemid [probenecid]; probenecid; latex; and tape [adhesives]. Social History Cecile reports that she has never smoked. She has never used smokeless tobacco. She reports that she does not drink alcohol or use drugs. Family History Cecile's family history includes Heart Failure in her father and mother; Not otherwise listed - Cancer in her brother; Parkinsonism in her brother. Review of Systems History obtained from the patient. General ROS: negative Constitutional ROS: negative for excess weight loss or weight gain, negative for fever or weight loss. Psychological ROS: negative. Ophthalmic ROS: negative. ENT ROS: negative. Allergy and Immunology ROS: negative. Hematological and Lymphatic ROS: negative. Endocrine ROS: negative. Respiratory ROS: SOB Cardiovascular ROS: no chest pain or dyspnea on exertion. Gastrointestinal ROS: Nausea Genito-Urinary ROS: no dysuria, trouble voiding, or hematuria. Musculoskeletal ROS: negative. Neurological ROS: negative. Dermatological ROS: negative. Admission Vital Signs Temp: 98 F (36.7 C) BP: 94/55 Pulse: 135 Resp: 34 Pain Ratin (out of 10) Weight: 90.9 kg (200 lb 6.4 oz) O2 Device: Mask - Non-rebreather O2 Flow Rate (L/min): 9 l/min SpO2: 95 % Height: 167.6 cm (5' 6") Physical Exam General Appearance: well developed, well nourished. No distress. Head: Atrumatic. Normocephalic. Eyes: pupils equal and reactive, no pallor of conjunctiva. ENT: mucous membranes moist, nose and external ears grossly normal. Neck: supple, no significant adenopathy. No JVD. Lymphatics: no lymphadenopathy. Chest: clear to auscultation, no wheezes, rales or rhonchi. Heart: S1, S2 present. No murmurs. Abdomen: soft, nontender, nondistended, no masses or organomegaly. Neurological: alert, oriented, grossly intact. Extremities: no peripheral edema. Symmetric pedal pulses. Skin: normal coloration and turgor, no rashes, no suspicious skin lesions noted Diagnostics and Labs Relevant diagnostic, laboratory and radiological studies have been reviewed in the Electronic Medical Record. Labs (Last day) 04/08/20709 - 04/07/202358 BG ARTERIAL 04/08/2070904/07/202358 BG ARTERIAL O2 Source Unknown Unknown 04/08/20709 - 04/07/202358 BG UNKNOWN SOURCE 04/08/2010 04/07/202358 BG UNKNOWN SOURCE Collection Site Venous Venous 04/08/20709 - 04/07/202358 BG VENOUS 04/08/2070904/07/202358 BG VENOUS pH Venous 7.30-7.45 7.44 7.31 pCO2 Venous 35-50 (mmHg) 47 71 pO2 Venous 35-45 (MMHG) 75 20 O2 Saturation % Venous 60-80 (%) 93 25 Base Excess Venous -2-2 (meq/L) 6 7 HCO3 Venous 20-29 (mmol/L) 31 35 04/08/20 09 - 04/07/202358 CARDIAC MARKERS 04/08/2091804/08/2070404/07/20235804/07/202358 CARDIAC MARKERS Troponin I 0.000-0.028 (ng/mL) 0.709 0.671 0.409 BNP 0-100 (pg/mL) 998 04/08/20 09 - 04/07/202358 CBC 04/08/2091804/07/202358 CBC WBC 4.0-11.0 (K/uL) 20.0 22.2 RBC 3.80-5.30 (M/uL) 2.83 3.61 Hemoglobin 11.5-15.8 (g/dL) 9.2 11.5 Hematocrit 35.0-45.0 (%) 28.2 37.0 MCV 80.0-98.0 (fL) 99.6 102.5 MCH 25.5-34.0 (pg) 32.5 31.9 MCHC 31.5-36.5 (g/dL) 32.6 31.1 RDW-CV 11.5-15.5 (%) 14.8 14.7 RDW-SD 35.5-50.0 (fl) 53.7 55.8 Platelet Count 140-400 (K/uL) 193 269 MPV 8.5-12.0 (fL) 11.0 10.2 04/08/20704 - 04/07/202358 CHEMISTRY 04/08/2070404/08/2070404/07/20235804/07/20235804/07/202358 CHEMISTRY Glucose 70-100 (mg/dL) 133 130 Sodium 135-145 (meq/L) 140 140 Potassium 3.5-5.3 (meq/L) 5.0 4.6 Chloride 99-110 (meq/L) 99 96 CO2 20-29 (meq/L) 28 32 Anion Gap with K 6-20 (meq/L) 18 17 BUN 6-22 (mg/dL) 30 29 Creatinine 0.60-1.10 (mg/dL) 5.09 5.01 BUN/Creatinine Ratio 10.0-25.0 5.9 5.8 Calcium 8.5-10.5 (mg/dL) 8.3 9.1 Ionized Calcium 1.12-1.32 (mmol/L) 1.20 Corrected Calcium 8.5-10.5 (mg/dL) 9.7 Bilirubin Total 0.2-1.2 (mg/dL) 0.5 Alkaline Phosphatase 30-150 (U/L) 207 ALT - SGPT 0-55 (U/L) 21 AST - SGOT 0-35 (U/L) 35 CK 30-170 (U/L) 36 Protein Total 6.0-8.2 (g/dL) 6.6 Albumin 3.5-5.0 (g/dL) 3.3 Lactic Acid 0.5-2.2 (mmol/L) 1.4 2.1 eGFR >=60 (mL/min/1.73m2) 10 10 eGFR Non- >=60 (mL/min/1.73m2) 8 8 04/07/202358 - 04/07/202358 CHEMISTRY 04/07/20235804/07/20235804/07/20235804/07/20235804/07/202358 CHEMISTRY Magnesium 1.8-2.4 (mg/dL) 1.9 LDH Total 125-245 (U/L) 297 Ferritin 5-200 (ng/mL) 2,882 CRP 0.0-8.0 (mg/L) 13.8 Procalcitonin <0.07 (ng/mL) 0.44 04/08/20 0710 - 04/07/202358 CO-OXIMETRY STUDIES 04/08/20 0710 04/07/202358 CO-OXIMETRY STUDIES Carbon Monoxide 0.0-3.0 (%) <0.0 0.9 Methemoglobin 0.0-3.0 (%) 0.5 0.7 04/08/20918 - 04/07/202358 DIFFERENTIAL 04/08/2091804/07/202358 DIFFERENTIAL Seg Neut Absolute 1.8-8.0 (K/uL) 18.0 20.3 Lymphocytes Absolute 0.8-4.1 (K/uL) 1.0 0.4 Monocytes Absolute 0.0-1.0 (K/uL) 0.8 1.2 Eosinophils Absolute 0.0-0.7 (K/uL) 0.2 0.0 Basophil Absolute 0.0-0.2 (K/uL) 0.1 Immature Granulocyte Absolute 0.00-0.06 (K/uL) 0.15 Neutrophils Percent (%) 90.0 91.5 Neutrophils Abs. (Segs and Bands) (/uL) 18,000 20,300 Lymphocytes Percent (%) 5.0 1.9 Monocytes Percent (%) 4.0 5.4 Immature Granulocyte Percent (%) 0.7 Eosinophils Percent (%) 1.0 0.1 Basophil Percent (%) 0.4 Nucleated RBC (/100 WBC's) 0 Platelet Morphology Normal RBC Morphology Normal 04/07/202341 - 04/07/202341 ECG/EKG 04/07/202341 ECG/EKG EKG WAVEFORM Atrial fibrillation with rapid ventricular response Nonspecific ST and T wave abnormality Abnormal ECG Ventricular Rate: 121 BPM Atrial Rate: 127 BPM QRS Duration: 78 ms Q-T Interval: 306 ms QTc Calculation(Bazett): 434 ms Calculated R Ringwood: 31 degrees Calculated T [place]wood: -14 degrees 04/08/20 0711 - 04/07/202358 GENERAL COAGULATION 04/08/20 0711 04/08/20 0704/07/20235804/07/202358 GENERAL COAGULATION Protime 12.0-14.5 (secs) 13.6 11.5 INR 2.0-3.5 1.1 0.9 APTT 24-35 (secs) 121 31 04/08/20 0003 - 04/08/20 0003 SARS-COV-2 04/08/20 0003 SARS-COV-2 SARS-CoV-2 Not Detected Not Detected 04/08/20 0710 - 04/07/202358 OTHER 04/08/20 0710 04/08/20 0705 04/07/20235804/07/202358 OTHER Age (Years) [age] Allens Test Allens Test is not Required Allens Test is not Required p50 25.00-29.00 (mmHg) 30.61 30.75 Impression and Plan: Patient is a pleasant 79yr year old lady with end-stage renal diease secondary to diabetes, on dialysis on MWF in [facility].Patient was recently hospitalized from 03/15-03/19 primarily for dysphagia, concern for GI bleed, and atrial fibrillation. Cardiology was consulted and they recommended Lopressor on non hemodialysis day and a follow-up 4-6 weeks after discharge to re-consider cardiac pacemaker. During the last hospitalization her EGD was unremarkable for bleeding. She does have history of Shayla-En-Y.Now admitted admitted again with what appears to be PNA. 1. ESRD on HD: - OnMWFoutpatient scheduleat [place] - HD today as below order. -No UF as pt is below her dry wt and is hypotensive as well -K 5 2. Electrolytes: -K5 3. Acid/Base: - Bicarbonate at goal30, which is a bad sign without dialysis and indirectly reflects her poor nutritional status 4. BMD: - Ca stable - Phos5.9,continuePhosLo tid with meals 5. Anemia in the setting of ESRD -Hg 9.2 g/dl this AM - ESAand IV Iron per protocol 6.S/p fall with thoracic burst fracture. Pt has opted against surgery due to high risk, neurosurgery saw patient last admission. TLSO brace advised 7. BPborderline -But asymptomatic -Midodrine with dialysis 8. Access: - functional LUE AVG with palpable thrill Rest of management as per primary team. Overall poor prognosis, discussed with patient at length this AM. She said that she will consider hospice Rupal Serrato MD, FACP Nephrology [facility] SHADE ESTIMATOR documented in this encounter ED Notes Meggan Basurto MD - 04/08/2020 7:26 AM CSTAssociated Order(s): CRITICAL CARE DIAGNOSIS 1. HCAP (healthcare-associated pneumonia) 2. Multifocal pneumonia 3. CKD (chronic kidney disease) stage V requiring chronic dialysis (HCC) 4. Elevated troponin level 5. Acute respiratory failure with hypoxia and hypercapnia (HCC) 6. Atrial fibrillation with RVR ([facility]) 7. Subtherapeutic international normalized ratio (INR) ASSESSMENT/PLAN/DECISION MAKING: Very complicated case. History is most consistent with pneumonia. Patient has findings of sepsis with the fever, tachycardia. Concern about early septic shock. However, she has severe heart failurehistory. Clinically does not appear hypovolemic, or any has JVD. Patient describes her heart rate and blood pressure is running high and low respectively for white some time. I think giving her 30/kg wouldn't force her into respiratory failure and given the patient very clearly expresses her wish is not to be intubated this could be worse. Antibiotics are initiated for healthcare associated pneumonia with broad-spectrum antibiotics. Chest x-ray confirms my suspicion of pneumonia. Her white blood cell count is 22 with a left shift. COVID is negative. Patient is prescribed warfarin. Reviewing hospital records, she had the recent spine fracture but after determining that she was not a surgical candidate it was advised that she could restart the warfarin. At 0.9 hard to know if the cyst isn't taking in [place] somehow she is not getting it. Troponin 0.49, likely strain. Patient appears slightly more comfortable on recheck. She reports she still feeling better but still has significant tachypnea. She has used a BiPAP in the past and is agreeable to trying BiPAP. Labs demonstrate chronic renal failure without hyperkalemia. Patient tolerates BiPAP at first. Discussed with internal medicine. Admitted and transferred in critical condition. DISPOSITION Patient Admitted and Treated in this Facility Patient will be admitted. Luly Apr 08, 2020 1:03 AM WINDOW SHADE ESTIMATOR FOLLOW UP INFORMATION DISCHARGE MEDS Medication List ASK your doctor about these medications acetaminophen 650 mg CR tablet Commonly known as: TYLENOL ARTHRITIS allopurinol 300 mg tablet Commonly known as: ZYLOPRIM Take 0.5 tablets (150 mg) by mouth 1 time per day calcium acetate 667 MG capsule Commonly known as: PhosLo Take 2 capsules (1,334 mg) by mouth 3 times a day with meals Do not give on an empty stomach, must be given with food to be effective. cyanocobalamin 1000 mcg tablet Commonly known as: vitamin B-12 Take 1 tablet (1,000 mcg) by mouth 1 time per day darbepoetin 25 mcg/mL Soln Commonly known as: ARANESP doxercalciferol 4 mcg/2 mL Soln Commonly known as: HECTOROL gabapentin 100 mg capsule Commonly known as: NEURONTIN Take 1 capsule (100 mg) by mouth on Thursday, , and Thursday Administer after dialysis levothyroxine 50 mcg tablet TAKE 1 TABLET BY MOUTH EVERY MORNING lidocaine 5% patch Commonly known as: LIDODERM Apply 1 patch topically 1 time per day Patches may be left on for up 12 hours in a 24 hour period. lidocaine-prilocaine 2.5-2.5 % cream Commonly known as: EMLA Apply sparingly to dialysis access site at least 45 minutes prior to dialysis. Supplied through dialysis only. loperamide 2 mg capsule Commonly known as: IMODIUM Take 2 capsules (4 mg) by mouth on Thursday,Thursday,, and Thursday. prior to dialysis metoprolol tartrate 25 mg tablet Commonly known as: LOPRESSOR Take 0.5 tablets (12.5 mg) by mouth on Thursday, , Thursday, and Thursday multivitamin Tabs Take 2 tablets by mouth 1 time per day ondansetron 4 mg dispersible tablet Commonly known as: ZOFRAN ODT Take 1 tablet (4 mg) by mouth 4 times a day as needed for nausea or vomiting sodium ferric gluconate complex in sucrose 12.5 MG/ML Soln Commonly known as: FERRLECIT vitamin K 100 MCG Tabs tablet warfarin 2.5 MG tablet Commonly known as: Jantoven Managed by [place] [facility]. Take 7.5 mg every Thursday and Thursday. 5 mg all other days of the week. HPI / History / ROS Chief Complaint Patient presents with Cough Patient presents from [facility] via ambulance on non- rebreather at 9/L O2. Patient has history of dysphagia. She is at [facility] for recently "breaking my back". She states that shebelieves she swallowed something "wrong" and has been cough for 4 days. Patient became hypoxic. WhenEMS arrived, patient was sating at 85%. HPI HPI Patient is an 79-year-old female with significant comorbidities. Unfortunately, she had a recent back injury which is landed her in the custodial. She can act fully feeling herself deconditioning there. She has been having a terrible cough for over a couple weeks. She has been trying to tell nursing staff about it but has been attributed to dysphasia. Patient has been feeling very weak. She reports that her heart rate has been above 120 and her blood pressure has been as low as the 70s systolic. Patient reports that she finally got a hold of someone tonight would listen, "I got them to listen with a stethoscope, and they could hear how bad it is"and she was transferred by EMS. She is coughing up lots of phlegm. She does not have swelling in her legs. Her back hurts about the same. Her chest hurts from coughing. She feels very weak and she doesn't think she is running a fever. Shedoes feel shaking chills. She dialyzes usually Thursday but because of the holiday did not dialyze today. Patient is very clear during initial history that does not want cardiopulmonary resuscitation. She is okay with antibiotics and other life-prolonging treatments. ALLERGIES Allergies Allergen Reactions Benemid [Probenecid] Angioedema (High) Probenecid Hives (High) and Rash Latex Unknown/Not Verified Tape [Adhesives] Itching and Other (Specify in Comments) Breaks out. 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) Other and unspecified angina pectoris Hypothyroidism Permanent atrial fibrillation (HCC) Sleep apnea Gout Impaired fasting glucose Biventricular congestive heart failure (HCC) Marginal ulcer Dysphagia Health care maintenance Hyperkalemia Renal failure Pressure injury of left buttock, stage 2 (HCC) [place] (acute kidney injury) (HCC) Anemia of chronic renal failure, stage 5 (HCC) Iron (Fe) deficiency anemia ESRD (end stage renal disease) on dialysis (HCC) Non-ST elevation (NSTEMI) myocardial infarction (HCC) Secondary hyperparathyroidism of renal origin (HCC) Chronic diastolic CHF (congestive heart failure) (HCC) Chronic anticoagulation Trauma NSTEMI (non-ST elevated myocardial infarction) (HCC) Acute respiratory failure with hypoxia and hypercapnia (HCC) MEDICAL/SURGICAL/SOCIAL HISTORY Past Medical History: Diagnosis Date Anemia of chronic renal failure, stage 5 (HCC) Atrial fibrillation (HCC) Biventricular congestive heart failure (HCC) Blood transfusion without reported diagnosis Had 5 blood transfusion in 2018 due to GI blood Cardiac arrest (HCC) Cataract Needs Cataract removal CHF (congestive heart failure) (HCC) Diabetes mellitus (HCC) 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) Past Surgical History: Procedure Laterality Date A-V SHUNT FISTULA Left 05/25/2018 Procedure: ARTERIO VENOUS FISTULA PLACEMENT GRAFT;; Surgeon: Felipe De Anda MD A-V SHUNT FISTULA Left 05/28/2018 Procedure: LEFT ARM FISTULA REVISION;; Surgeon: Feilpe De Anda MD APPENDECTOMY CARPAL TUNNEL ENDOSCOPIC CHOLECYSTECTOMY GASTRIC BYPASS UPPER ENDOSCOPY N/A 03/24/2016 Procedure: UPPER ENDOSCOPY;; Surgeon: Willy Lozano DO UPPER ENDOSCOPY N/A 02/11/2018 Procedure: UPPER ENDOSCOPY;; Surgeon: Ofelia Wagoner MD UPPER ENDOSCOPY N/A 09/08/2019 Procedure: UPPER ENDOSCOPY;; Surgeon: Neli Ohara MD UPPER ENDOSCOPY N/A 03/16/2020 Procedure: UPPER ENDOSCOPY;; Surgeon: Jarod Carlos MD Family History Problem Relation Age of Onset Heart Failure Father Heart Failure Mother Not otherwise listed - Cancer Brother pancreratic Parkinsonism Brother Social History Socioeconomic History Marital status: Single Spouse name: Not on file Number of children: Not on file Years of education: 12 Highest education level: Not on file Occupational History Occupation: retired hospice manager Tobacco Use Smoking status: Never Smoker Smokeless tobacco: Never Used Substance and Sexual Activity Alcohol use: No Drug use: No Sexual activity: Not Currently Social History Narrative Never . Comes to clinic only infrequently because of mild social phobia. Last CPE 01/26/18. HOME MEDICATIONS No current outpatient medications on file. ROS Review of Systems Constitutional: Positive for chills and fatigue. Negative for fever. HENT: Positive for trouble swallowing. Negative for congestion. Eyes: Negative for visual disturbance. Respiratory: Positive for cough, chest tightness, shortness of breath and wheezing. Cardiovascular: Positive for chest pain and palpitations. Gastrointestinal: Positive for nausea. Negative for vomiting. Genitourinary: Positive for decreased urine volume. Musculoskeletal: Positive for back pain. Skin: Positive for pallor. Allergic/Immunologic: Negative for immunocompromised state. Neurological: Positive for dizziness and light-headedness. Negative for syncope. Hematological: Bruises/bleeds easily. Physical / Results PHYSICAL EXAM ED Triage Vitals [04/07/20 2145] Temp Temp Source Pulse Resp BP SpO2 O2 Flow Rate (L/min) O2 Device 98 F (36.7 C) Oral 135 34 94/55 95 % 9 l/min Mask - Non-rebreather Physical Exam Vitals signs reviewed. Constitutional: Comments: Patient looks rough. She is markedly tachycardic. Respirations initially in the 30s.She is on a nonrebreather at 10 L and sats are still in the low 90s. She is speaking in slightly shortened sentences. She seems to be a clear historian, consistent with her answers HENT: Head: Atraumatic. Comments: Mucous membranes are dry Nose: No rhinorrhea. Mouth/Throat: Pharynx: No posterior oropharyngeal erythema. Eyes: General: No scleral icterus. Neck: Comments: Neck veins visible with patient sitting at 60. Moderate JVD. Cardiovascular: Rate and Rhythm: Tachycardia present. Rhythm irregular. Heart sounds: Murmur present. Pulmonary: Effort: Respiratory distress present. Breath sounds: Rhonchi and rales present. No wheezing. Comments: Tachypnea, profound hypoxia Abdominal: General: There is no distension. Musculoskeletal: Right lower leg: Edema present. Left lower leg: Edema present. Skin: Coloration: Skin is pale. Neurological: Comments: Patient is alert. She is aware she is at the hospital. She is able to relay her complicated past medical history the linear fashion. She has equal strength left and right with diffuse symmetric weakness. Scoring Scales Eloy Coma Scale Score: 15 ED COURSE PROCEDURES CRITICAL CARE Performed by: Meggan Basurto MD Authorized by: Meggan Basurto MD Total critical care time: 45 minutes Critical care time was exclusive of separately billable procedures and treating other patients and teaching time. Critical care was necessary to treat or prevent imminent or life-threatening deterioration of the following conditions: sepsis and respiratory failure. Critical care was time spent personally by me on the following activities: development of treatment plan with patient or surrogate, discussions with consultants, evaluation of patient's response to treatment, examination of patient, obtaining history from patient or surrogate, ordering and performing t reatments and interventions, ordering and review of laboratory studies, ordering and review of radiographic studies, pulse oximetry, re-evaluation of patient's condition and review of old charts. MDM-CODING: MDM Very complicated case. History is most consistent with pneumonia. Patient has findings of sepsis with the fever, tachycardia. Concern about early septic shock. However, she has severe heart failure history. Clinically does not appear hypovolemic, or any has JVD. Patient describes her heart rate and blood pressure is running high and low respectively for white some time. I think giving her 30/kg wouldn't force her into respiratory failure and given the patient very clearly expresses her wish is not to be intubated this could be worse. Antibiotics are initiated for healthcare associated pneumonia with broad-spectrum antibiotics. Chest x-ray confirms my suspicion of pneumonia. Her whiteblood cell count is 22 with a left shift. COVID is negative. Patient is prescribed warfarin. Reviewing hospital records, she had the recent spine fracture but after determining that she was not a surgical candidate it was advised that she could restart the warfarin. At 0.9 hard to know if the cyst isn't taking in [place] somehow she is not getting it. Troponin 0.49, likely strain. Patient appears slightly more comfortable on recheck. She reports she still feeling better but still has significant tachypnea. She has used a BiPAP in the past and is agreeable to trying BiPAP. Labs demonstrate chronic renal failure without hyperkalemia. Patient tolerates BiPAP at first. Discussed with internal medicine. Admitted and transferred in critical condition. OW SHADE ESTIMATOR Jenna Mortensen RN - 04/07/2020 9:48 PM CSTPlan of care includes addressing Respiratory and Cardiovascular with attention to cough and hypoxia. OW SHADE ESTIMATOR documented in this encounter Miscellaneous Notes Palliative Care Team - Annelise Call CNP - 04/10/2020 10:09 AM CSTPatient is discharging today. Visited with patient and family at the bedside to answer any questionsand see if she needed anything before discharge. Patient is comfortable but would like the pain medication patch and acetaminophen prior to moving for discharge. RN notified. Patent had no other concerns or needs. Annelise Call SPANISH LANGUAGE LECTURER-AUGUSTO Palliative Care Team Pager #[phone] ase Mgmt - Rose Carvalho RN - 04/10/2020 9:18 AM CSTCASE MANAGEMENT / SOCIAL SERVICE FINAL TRANSITION PLAN TRANSITION DATE: 04/10/20 TRANSITION TIME: 1100 INTENDED PAYER SOURCE FOR AGENCY: Medicare TRANSITION DESTINATION: [facility] Swing bed Nurse to nurse: [phone] Fax for orders: [phone] DEVELOPMENT ASSISTANT: Please fax paperwork to above fax number Nursing: please call report at above number before or just as patient leaves. MD: please do [facility] transfer order set, ensure orders for PT, OT, ST(if needed) are included. When doing medication orders, there cannot be any range orders, and indication is needed for all meds. DOES ACCEPTING FACILITY REQUIRE COVID TESTING BEFORE DISCHARGE: Needs one negative test within 24-48 hours TRANSITION TRANSPORTATION: [facility]; [facility] (P: [phone]) TRANSPORTATION PAYMENT: Billed to Case Management Due to: no funds / expedite discharge TRANSITION CHOICES OFFERED: Swing Bed DOES THE PATIENT HAVE A PRIMARY CARE PHYSICIAN? Yes Catarina Salvador, DO PATIENT / SUBSTITUTE DECISION MAKER GOAL UPON TRANSITION: First Choice: Swing Bed Transportation assistance PATIENT CHOICE EDUCATION: Choice form completed in Case Management note and copy given to patient/family MEDICARE 3 IP MIDNIGHT CRITERIA MET: Yes: . RESOURCE(S) PROVIDED: Hospice, Placement and Transportation DOES PATIENT HAVE CLOTHING TO WEAR AT DISCHARGE? Yes ANTICIPATED MODE OF TRANSPORT TO AND FROM FOLLOW UP APPOINTMENTS: As arranged by accepting facility VERIFIED CORRECT PHARMACY IS ENTERED FOR DISCHARGE: No METHOD OF PRESCRIBING MEDICATIONS: Reconcile medications as Patient Transfer ("65 button") TRANSITION ROUNDING COMPLETED WITH THE FOLLOWING: Patient / family Php Magento Developer COMMENTS / PATIENT AND FAMILY RESPONSE TO PLAN: Chart reviewed. Spoke with pt and Kathrine mcguire. No concerns for CM. Transportation assistance per CM d/t lack of funds. CM to assist if d/c needs arise. CURRENT READMISSION RISK SCORE / HANDOFF: Predictive Risk Score Risk of Unplanned Readmission: 34 Handoff given: N/A SIGNED: Rose Carvalho RN BSN Case Management - 6CD Rt: [id number] linical Team - Alpa Fry RN - 04/09/2020 5:22 PM CSTPt changed to comfort cares after meeting with MD, Case management, palliative and family. Pt in good spirits throughout shift, stating she has lived a good life and is ready to go. Pt's niece up to visit. Pt on 4L O2 for comfort. Pt c/o a lot pressure in rectum this AM, enema order, minimal output noted, pt had to be digitally disimpacted. Large stool was removed. Pt states she feels much better afterward. Plan for possible d/c to swing bed tomorrow. are Planning - Alpa Fry RN - 04/09/2020 5:21 PM WINDOW SHADE ESTIMATOR Problem: ANXIETY Goal: DIGNIFIED LIFE CLOSURE Description: DEFINITION: Personal actions to maintain control during approaching end of life. 1=Never demonstrated, 2=Rarely demonstrated, 3=Sometimes demonstrated, 4=Often demonstrated, 5=Consistently demonstrated. Outcome: NOC Rating 4 Flowsheets (Taken 04/09/2020 1715) Initial Score: 4 Target Score: 5 Plan of care reviewed with: Patient Patient specific goal for the day: choose between comfort cares vs. aggressive management Patient specific goal for the stay: have a set discharge plan Achieve goal for stay: By discharge Patient Progress: Pt met with MD, palliative care team and casemanagment. Pt chose to go with hospice. Pt changed to comfort cares. Pt states she has lived a long life and is ready to be done. Pt states she knows she will not get better and does not want to go through this anymore. Pt in good spirits.Emotional support provided. Plan to d/c to [place] swing bed on hospice tomorrow. are Planning - Alpa Fry RN - 04/09/2020 5:13 PM WINDOW SHADE ESTIMATOR Problem: IMPAIRED GAS EXCHANGE Goal: RESPIRATORY STATUS Description: DEFINITION: Movement of air in and out of the lungs and exchange of carbon dioxide and oxygen at the alveolar level. 1=Severe deviation from normal range, 2=Substantial deviation from normal range, 3=Moderate deviation from normal range, 4=Mild deviation from normal range, 5=No deviationfrom normal range. Outcome: Outcome acceptable for discharge Pt transitioned to comfort cares alliative Care Team - Diane Garnica RN - 04/09/2020 4:07 PM CSTPalliative Consult Nurse Note Reason for Consult: To offer support and assist with clarifying the goals and plan of care. Discussion of Background: Please see EMR for history. Discussion of Current Situation: I have expressed to Cecile and then with her neice that the goal of a palliative consult nurse is to first and foremost provide support to patients and families. To help the patient and/or family understand the medical situation. To understand the goals of the patient and family so that we as a medical service make sure that we are following your wishes. We assist to view a person multidimensionality and to assist the patient and team in finding ways to improve someone's quality of life and decrease distress. Lastly, depending on the situation, I explain additional or alternative medical care. Cecile is very much ready to change the focus to comfort. She does not wish to continue with aggressive medical care. We talked about hospice options and comfort cares. I explained that all goals change to comfort. Symptoms of distress are aggressively treated. Without attempting to prolong or shorten life. We discussed that with the change in focus, we would allow the natural progression of the disease to occur. We reviewed that with a comfort approach, medications for comfort would be usedand all other treatments would be evaluated in regards to whether they bring comfort or not. Any medications and procedures that do not bring comfort could be discontinued. Depending on the situation, the palliative unit, inpatient hospice, outpatient hospice in a SNF or at home would be of benefit I explained that the Hospice unit/Hospice House is located on [address] [place] [address] in [place]. The unit is specifically designed for patients who are on hospice. Routine patients can only be [facility] patients. They pay $315.00 per day for room and board to stay in the hospice house and are cared for by [facility] nurses. The main goal of the hospice house is to manage symptoms and provide care and support to patients and families at end of life. All inpatients that are not on the [facility] will transfer to PCU via ambulance. We discussed that should a person's health decline towards , then the hospice staff would fullysupport the patient and family through the dying process. Pt had changed her mind between my first visit and second visit. After talking with family, Cecile decided that she did wish to be in [facility] so that she owuld be closer to her sisters and rest of her family. Rose Carvalho CM is looking into [facility]. Pt's primary care provider will be managing her comfort cares. Provided emotional support, active listening, and validation for Cecile and her niece. Goals/Priorities: [facility] on comfort cares Plan at this time: I will plan to follow up with Cecile tomorrow. I did let Maria with spiritual care that Cecile declined a visit. Magalie Garnica RN, [facility] Palliative Care Consult RN [phone] phone, [phone] [phone] OW SHADE ESTIMATOR Care Planning - Maria Parrish CHAPLAIN - 04/09/2020 3:23 PM CSTChaplain attempted this consult visit multiple time but staff was always busy with Cecile in the room. received a page from CALEB Mejias that Aiden declined a education supervisor visit at this time. Please page [phone] if further needs arise. ccupational Therapy - Lora Mckenzie OTR/L - 04/09/2020 2:31 PM CSTOT orders received and acknowledged. Per chart review and conversation with patient, she is going home on hospice. At this time pt does not want any further therapy services. Will DC OT per pt request.Please re-consult if change in status/POC. NIELS Lares Pager #[phone] ase Mgmt - Rose Carvalho RN - 04/09/2020 2:26 PM CSTCASE MANAGEMENT / SOCIAL SERVICE TRANSITION PLAN - INITIAL ASSESSMENT TRANSITION PLAN: Awaiting Medical Doctor Recommendations for Transition Will Continue to Follow for Support and Progression Towards Final Transition Plan BARRIERS TO TRANSITION: Medical barriers:. Comfort Cares Palliative support Placement / transportation COMMENTS / PATIENT AND FAMILY RESPONSE TO PLAN: Chart reviewed. Met with patient and family at bedside. NieceKathrine, and her nephew are her support system and are helping with placement needs, hospice support, and care of her estates. Patient transitioned to CC today. Stopped dialysis and abx plan. Focusing on comfort and quality of life. Palliative has been meeting with patient and family. Profiled to [facility] swing bed for end of life cares. Admissions is reviewing and will be in touch with bid writer. They are familiar with pt and feel they can accept as soon as tomorrow if MD accepts. Their second choice would be [facility] beals - Magalie, RN states there is one bed available, but CM will work with admission once patient and family make their decision. CM to follow. ADMISSION DX: Acute respiratory failure with hypoxia and hypercapnia (HCC) PATIENT STATUS: Inpatient RELEASE OF INFORMATION: Yes -- verbal for: discharge planning - Kathrine (lauren) SOURCES OF INFORMATION (See demographics for contact information): Medical Doctor Medical Record Patient CURRENT LIVING SITUATION / LEVEL OF ASSISTANCE: Other: . Pt has apartment in [place], [place]. She was residing at [facility] for PT/OT. She has stopped her bed hold and is awaiting placement options for hospice/ CC support. COMMUNITY SERVICES: None HEALTHCARE DIRECTIVE: Yes-On File and reviewed POWER OF PEDIATRIC CRITICAL CARE NURSE: Healthcare Power of Deputy Probation Officer Financial Power of Deputy Probation Officer FINANCIAL CONCERNS: No Concerns PRIMARY CARE PHYSICIAN: Yes Catarina Salvador DO : No IS PATIENT'S ADMISSION ASSOCIATED WITH TIA, ISCHEMIC, OR HEMORRHAGIC STROKE?: No LANGUAGE / COMMUNICATION BARRIERS: No PATIENT / SUBSTITUTE DECISION MAKER GOAL UPON TRANSITION: First Choice: [facility]ice[facility] ANTICIPATED NEEDS, TRANSITION CHOICES OFFERED: [facility]ice[facility] RESOURCE(S) PROVIDED: Hospice, Placement and Transportation DOES PATIENT HAVE CLOTHING TO WEAR AT DISCHARGE? Yes ANTICIPATED MODE OF TRANSPORT UPON DISCHARGE: Other: TBD VERIFIED CORRECT PHARMACY IS ENTERED FOR DISCHARGE: No TBD CURRENT READMISSION RISK SCORE Predictive Risk Score Risk of Unplanned Readmission: 34.6 Please refer to readmission risk assessment flowsheet for further details. SIGNED: Rose Carvalho RN BSN Case Management - 6CD Rt: [id number] OCN / Skin Team - Maite Larios, RN - 04/09/2020 10:06 AM CSTWound nurse consulted regarding buttocks/coccyx. Cecile said she has had open areas to her buttocks for months now. There are two healed areas with new pink epithelium, and one open area to the right buttock that is nearly healed. No redness to the coccyx at this assessment. Cecile said she is goinghome on hosp[facility]. Applied barrier cream to the small open area to the right buttock, mepilex is in place over the sacrum/coccyx. Wound care will sign off. utrition Team - Sariah Latham RD - 04/09/2020 8:59 AM CST Nutrition Therapy Initial Assessment Hospital Day: 1 days Active Problems: ? Acute hypoxic hypercapnic respiratory failure 2/2 likely community acquired pneumonia with risk for multidrug-resistance ? NSTEMI, likely Type 2 vs Type 1 ? Recent unstable vertebral burst fracture PMH: Anemia of chronic renal failure, Biventricular congestive heart failure, Cardiac arrest, CHF, DM (h/o not a current Dx), Dysphagia, ESRD on HD, Gout, Gastroparesis, HTN, HERNANDEZ, ESRD on HD MonWedFri,obesity, Raynaud's syndrome, Hypothyroidism, s/p shayla-En-Y Recommendations: PO intake for comfort NUTRITION ASSESSMENT Plan to to transition to hospice. Nephrology signed off. Nutrition therapy to sign off. Please consult with any changes in POC. Anthropometrics: Height: 167.6 cm (5' 6") Admission Weight: 90.9 kg (200 lb 6.4 oz) as of 04/07/2020 per bed scale Most Recent Weight: 90.1 kg (198 lb 10.2 oz) (04/08/20 1645) per bed scale BMI: Body mass index is 32.06 kg/m. IBW: 59 kg %IBW: 154% (based on admit weight) Usual Body Weight: ~200 lbs per EMR review Unintentional Weight Loss: Admit wt is below EDW which on last admit was 92 kg Estimated average intake over the last 2 days: 04/07: NPO 04/08: 220 kcal and 5 gm protein Intake Records: Intake Prior to Admit: Recently admitted 03/15-03/19. Pt reports decreased intake since admit d/t constipation. Pt consumes ground meats at baseline. Pt is very knowledgeable regarding renal and dysphagia restrictions. Pt recently purchased renal ONS (16 gm protein/drink) in an attempt to get her albumin to ideal range. Current Intake: Sub optimal Current Diet: Nutrition (From admission, onward) Start Ordered 04/08/20 1335 Diet - Level 6 Soft & Bite Sized (NDD3) ; Thin Liquids Now Comments: Okay for bread, OK to order what she requests per Dr. Taveras Question Answer Comment Dysphagia Level 6 Soft & Bite Sized (NDD3) Liquid Consistency Thin Liquids 04/08/20 1335 Physical Assessment: Edema: (per reliability engineer at 0400 today) None GI Assessment: ? Abdominal exam: Distended and Slightly firm with Audible, Hypoactive bowel sounds, per reliability engineer at 0400 today. ? Stool Frequency: Pt has not had a documented BM since admission Wounds/Pressure Points: (per reliability engineer at 1999 yesterday) ? Coccyx Medial ? Heel Blanchable Redness ? Sacrum Pt refusing turns Functional Status: PT Following OT Following Nutrition Focused Physical Exam: Deferred at this time Nutritionally-Relevant Medications, Vitamins and Minerals: Antibiotics, Warfarin, Phoslo, Vit B12, Thera-M, Senna, IVF Nutritionally-Relevant Biochemical Data: (04/09/2020) Glucose 133 H BUN 30 H Creatinine 5.09 H GFR 8 L Allergies/Food Intolerance: Cecile is allergic to benemid [probenecid]; probenecid; latex; and tape[adhesives]. Culturally Yazdanism Needs: NA INTERVENTIONS EMR reviewed MONITORING/EVALUATION Monitor ability to consume and tolerate adequate intake to approximate estimated needs with accomodation of preferences and tolerances until intake is sustained within desirable limits Monitor I&O, weight trends, nutrition-related labs and medications, clinical status, and planof care r/t need for nutrition intervention and provide as warranted Nutrition Therapy will reassess every 1-[address] (Nikki), LRD [facility] Pager: #[phone] Phone: [phone] OW SHADE ESTIMATOR Clinical Team - Shellie Garza RN - 04/08/2020 5:42 PM CSTPatient has one peripheral IV. Heparin gtt running through y-site with NS. Vanco ordered for 1730. Confirmed with pharmacy that Heparin and Vanco not compatible. Called made to Rescue RN to requestsecond peripheral IV for administration of Vanco dose due at 1730. Patient informed that second peripheral IV needed. Rescue RN attempted to place peripheral IV unsuccessful. Previous attempts from Flight RN unsuccessful. Page to Anesthesia requesting peripheral IV access. Vanco re-timed pending access ccupational Therapy - Reilly Mayen, OTR/L - 04/08/2020 4:26 PM CSTOT order received and chart reviewed. Pt is refusing repositioning/movement, TLSO is not available and per chart review pt may be considering hospice/palliative. OT will f/u as able/appropriate. Don Mayen, OTR/L Pager: [phone] OW SHADE ESTIMATOR Clinical Team - Jody Godfrey RN - 04/08/2020 3:03 PM CSTShift note: Pts BP have been soft, did receive 500ml bolus this am and then started on midodrine fordialysis run. Pt asymptomatic with BP, pt says her BP "is usually low." Pt is on heparin gtt, 2L NC.Pt has refused to turn or reposition this shift. Pt is thinking about possible hospice, palliative nurse consult in. No other concerns at this time, will continue to monitor. are Planning - Jody Godfrey RN - 04/08/2020 1:37 PM WINDOW SHADE ESTIMATOR Problem: IMPAIRED GAS EXCHANGE Goal: RESPIRATORY STATUS Description: DEFINITION: Movement of air in and out of the lungs and exchange of carbon dioxide and oxygen at the alveolar level. 1=Severe deviation from normal range, 2=Substantial deviation from normal range, 3=Moderate deviation from normal range, 4=Mild deviation from normal range, 5=No deviationfrom normal range. Flowsheets (Taken 04/08/2020 1336) Initial Score: 2 Target Score: 4 Plan of care reviewed with: Patient Patient specific goal for the day: Wean down oxygen this shift Patient specific goal for the stay: return to baseline Achieve goal for stay: By discharge Patient Progress: Pt started on 3L NC this shift, pt currently on 2L NC and tolerating it well. Willconitnue to monitor. OW SHADE ESTIMATOR Supplemental Progress Note - Corrina Davis, - 04/08/2020 12:40 PM WINDOW SHADE ESTIMATOR REASON FOR CONSULTATION: Atrial fibrillation with rapid ventricular response. This is supplemental note for the patient because I did not see the patient in full consultation. HISTORY OF PRESENT ILLNESS: The patient again presented here with community- acquired pneumonia. Patient has hypotension. She has a previous history of atrial fibrillation, which has been very difficult to control. With any activity, the heart rate increases to 130s and actually just is very hard to control. We are kind of limited in giving her any heart rate control medication, mainly because ofher hypotension. She has also been seen in conjunction with Dr. Serrato, sap bw architect, whom recommendedpatient to consider hospice. Again, Dr. Bashir has seen in the patient at the beginning of this month and did not think the patient is a good candidate for an AV walker ablation and pacemaker placement, mainly because of her dialysis and increases the risk of device infection. At this point in time, I agree with Dr. Serrato, again I think the issue mostly is hypotension, that he cannot redialyze her and also she has multiple hospitalizations repeatedly throughout this year and with again infections, sepsis and actually fractures and again ongoing atrial fibrillation, which is very heart rate control. At this point, as I mentioned, I agree with Dr. Serrato, I think although the patient's echo shows EF is 60%, but overall her condition is so poor and she is a poor candidate for an AV walker ablation and pacemaker placement. I discussed with pt Niece and pt again. She has agreed to hospice, and would like to have a regular diet with Mashed potato. Receipt: [id number] Trans ID: [id number] WINDOW SHADE ESTIMATOR WINDOW SHADE ESTIMATOR [id number] signed by Corrina Davis DO at 04/08/2020 1:28 PM CSTPhysical Therapy - Marcella Manrique DPT - 04/08/2020 8:09 AM CSTPT order received and chart reviewed. At this time PT will hold as TLSO is not currently available; recently hospitalized with unstable T9 burst fracture to be applied/removed in supine for all out of bed activity. Will follow up as appropriate. Desire o, PT, DPT [facility] Pager: [phone] linical Team - Faustina Givens RN - 04/08/2020 6:31 AM CSTPt is alert and oriented x4, follows commands appropriately, Satting above 90% on 3L oxymask. Known A-fib on ekg monitor, tachycardic with HR in the 100-110s. Pt c/o pain to back from previous vertebral burst fx. Tylenol given. Takes pills crushed in applesauce. No urine or BM this shift. Heparin gtt started with q6hr APTT draws. Will report to oncoming nurse. upplemental Progress Note - Delisa Taveras MD - 04/08/2020 5:53 AM CSTPatient was admitted after midnight on 04/08/2020. Please refer to H&P for more patient details.Patient was seen and examined in the morning by the primary medicine team and the case was discussedwith the attending physician. Interval History: Patient states she feels much better, cough has stopped. States that she is considering hospice/palliative care. Does not want to go through procedures or be coming in/out of hospitals. States she has lived a good life. Niece is present at bedside and was agreeable to consider hospice. The following are additions/modifications to the original care plan. -Patient and niece considering transitioning to hospice/palliative care. Would like to continue dialysis for today. Will discuss again 04/09. -Cardiology, appreciate recs: not a candidate for pacemaker. -Echo (03/16/40): EF 65% -Afib w/ RVR - CHADSVASc - 4, HAS-BLED - 3, INR 0.9 (goal 1.5-2) -Continue IV abx OW SHADE ESTIMATOR Associated attestation - Zhang Klein MD - 04/08/2020 3:47 PM CSTI have seen and discussed her care with ; I personally interviewed and examined the patient. I agree with the diagnosis and management as noted by . Zhang Klein MD, MPH, FACC, FAAFP -Faculty Hospitalist/ Vascular Medicine, Clinical Toolroom Clerk, [facility] [employer] [facility] [employer] [facility] SciencesClinical Team - Faustina Givens RN - 04/08/2020 4:42 AM WINDOW SHADE ESTIMATOR Upon admission to [facility], skin assessment completed with Ty Mujica RN. Upon skin assessment including pressure points findings include: blanchable redness to left and right heels. Non-blanchable redness to coccyx and sacrum. Skin tear to left and right buttock, coccyx, left and right abdominal fold, left lopez. Scattered bruising to right arm. Scabs to left arm, right toes, abdomen. Plan/Intervention: Barrier cream to buttock and sacrum, mepliex to sacrum, reposition every 2 hour, interdry to abdominal folds, keep skin dry, manage incontinence. OW SHADE ESTIMATOR Clinical Team - Faustina Givens RN - 04/08/2020 4:18 AM CSTVerified the following with Jenna Mortensen RN. Code status order: Patient understands and agrees Code status band applied OW SHADE ESTIMATOR Respiratory Therapy - Stephanie Hernández RRT - 04/08/2020 2:42 AM CSTPt. Was placed on bipap on IPAP 14 EPAP 6 FiO2 35% RR 24 VT's 350-550ml SPO2 95% Pt. Has since pulled the bipap off and refuses to wear it. Currently on 5 lpm per oxymask SPO2 94% documented in this encounter Plan of Treatment Date Type Specialty Care Team Description 04/10/2020 Hospital Encounter Nephrology Dimitrios Wilder MD [address] [place] [address], [place] [address] [phone] 04/12/2020 Appointment NephIrineo Frazier MD [address] [place] [address], [place] [address] [phone] 04/14/2020 Appointment NephIrineo Frazier MD [address] [place] [address] [phone] 04/17/2020 Appointment NephIrineo Frazier MD [address] [place] [address] [phone] 04/19/2020 Appointment NephIrineo Frazier MD [address] [place] [address], [place] [phone] 04/21/2020 Appointment Irineo Camarillo MD [address] [place] [address] [phone] 04/24/2020 Appointment NephIrineo Frazier MD [address] [place] [address] [phone] 04/26/2020 Appointment Irineo Camarillo MD [address] [place] [address] [phone] 04/28/2020 Appointment NephIrineo Frazier MD [address] [place] [address] [phone] 05/01/2020 Appointment NephIrineo Frazier MD [address] [place] [address] [phone] 05/04/2020 Appointment Radiology Aaron Riley, SPANISH LANGUAGE LECTURER-DRESS CUTTER [address] [place] [address] [phone] 05/04/2020 Office Visit Neurosurgery Jostin Sandhu M D [address] [place] [address] [phone] Name Type Priority Associated Diagnoses Date/Ti me CULTURE, BLOOD MICROBIOLOGY REPORT STAT 2019 11:59 PM WINDOW SHADE ESTIMATOR CULTURE, BLOOD MICROBIOLOGY REPORT STAT 2019 7:05 AM WINDOW SHADE ESTIMATOR Name Type Priority Associated Diagnoses Order S chedule COVID-19 SCREEN TO RULE Lab STAT Once for 1 Occurrences OUT INFECTIVE STATUS startin g 04/10/2020 until 04/10/2020 documented as of this encounter Implants Implanted Type Area Hosiery Operator Device Shelf Model / Identifier Expiration Serial / Lot Date Graft Flixene Grad [id number] - [id number] Left: ARM GETINGE CASTLE 03/10/2020 [id number] / Implanted: Qty: 1 on 05/25/2018 by Felipe Cristobal MD at [facility] [id number] / [id number] documented as of this encounter Procedures Procedure Name Priority Date/Time Associated Comments Diagnosis PTT Timed Routine 04/09/2020 10:15 Results fo r this AM WINDOW SHADE ESTIMATOR procedure are i n the results section. PTT STAT 04/09/2020 7:56 Results for this AM WINDOW SHADE ESTIMATOR procedure are i n the results section. LAB ONLY-COMPLETE Routine 04/09/2020 6:15 Result s for this BLOOD COUNT WITH AM WINDOW SHADE ESTIMATOR procedure a re in DIFFERENTIAL the results section. PTT STAT 04/09/2020 6:15 Results for this AM WINDOW SHADE ESTIMATOR procedure are i n the results section. PROTIME/INR Routine 04/09/2020 6:15 Results for this AM WINDOW SHADE ESTIMATOR procedure are i n the results section. LAB ONLY-COMPLETE Routine 04/09/2020 6:15 Result s for this BLOOD COUNT WITH AM WINDOW SHADE ESTIMATOR procedure a re in DIFFERENTIAL the results section. PTT Timed STAT 04/09/2020 12:23 Results for this AM WINDOW SHADE ESTIMATOR procedure are i n the results section. PTT Timed Routine 04/08/2020 8:35 Results fo r this PM WINDOW SHADE ESTIMATOR procedure are i n the results section. PTT STAT 04/08/2020 1:28 Results for this PM WINDOW SHADE ESTIMATOR procedure are i n the results section. ECHO ADULT COMPLETE Routine 04/08/2020 11:08 Resu lts for this AM WINDOW SHADE ESTIMATOR procedure are i n the results section. PTT Timed Routine 04/08/2020 10:51 Results fo r this AM WINDOW SHADE ESTIMATOR procedure are i n the results section. LACTIC ACID STAT 04/08/2020 10:51 Results for this AM WINDOW SHADE ESTIMATOR procedure are i n the results section. LAB ONLY-MANUAL Routine 04/08/2020 9:19 Results for this DIFFERENTIAL AM WINDOW SHADE ESTIMATOR procedure are i n the results section. LAB ONLY-COMPLETE Routine 04/08/2020 9:19 Result s for this BLOOD COUNT WITH AM WINDOW SHADE ESTIMATOR procedure a re in DIFFERENTIAL the results section. TROPONIN I Timed Routine 04/08/2020 9:19 Results fo r this AM WINDOW SHADE ESTIMATOR procedure are i n the results section. LAB ONLY-COMPLETE Routine 04/08/2020 9:19 Result s for this BLOOD COUNT WITH AM WINDOW SHADE ESTIMATOR procedure a re in DIFFERENTIAL the results section. CRITICAL CARE Routine 04/08/2020 7:26 Results fo r this AM WINDOW SHADE ESTIMATOR procedure are i n the results section. PTT STAT 04/08/2020 7:11 Results for this AM WINDOW SHADE ESTIMATOR procedure are i n the results section. PROTIME/INR Routine 04/08/2020 7:11 Results for this AM WINDOW SHADE ESTIMATOR procedure are i n the results section. BLOOD GASES VENOUS STAT 04/08/2020 7:10 Resul ts for this AM WINDOW SHADE ESTIMATOR procedure are i n the results section. CULTURE, BLOOD STAT 04/08/2020 7:05 AM WINDOW SHADE ESTIMATOR TROPONIN I Timed Routine 04/08/2020 7:05 Results fo r this AM WINDOW SHADE ESTIMATOR procedure are i n the results section. LACTIC ACID Timed Routine 04/08/2020 7:05 Results fo r this AM WINDOW SHADE ESTIMATOR procedure are i n the results section. BASIC METABOLIC PANEL Routine 04/08/2020 7:05 Re sults for this AM WINDOW SHADE ESTIMATOR procedure are i n the results section. XRAY CHEST PORTABLE RAMONA 04/08/2020 12:56 Resu lts for this AM WINDOW SHADE ESTIMATOR procedure are i n the results section. SARS-COV-2, INFLUENZA STAT 04/08/2020 12:03 Re sults for this A+B, AND/OR RSV AM WINDOW SHADE ESTIMATOR procedure ar e in NUCLEIC ACID TESTING the res ults PANEL section. BLOOD GASES VENOUS STAT 04/07/2020 11:59 Resul ts for this WITH IONIZED CALCIUM PM WINDOW SHADE ESTIMATOR procedu re are in AND LACTIC ACID the results section. LAB ONLY-COMPLETE STAT 04/07/2020 11:59 Result s for this BLOOD COUNT WITH PM WINDOW SHADE ESTIMATOR procedure a re in DIFFERENTIAL the results section. PROCALCITONIN STAT 04/07/2020 11:59 Results fo r this PM WINDOW SHADE ESTIMATOR procedure are i n the results section. CULTURE, BLOOD STAT 04/07/2020 11:59 PM WINDOW SHADE ESTIMATOR PTT STAT 04/07/2020 11:59 Results for this PM WINDOW SHADE ESTIMATOR procedure are i n the results section. PROTIME/INR STAT 04/07/2020 11:59 Results for this PM WINDOW SHADE ESTIMATOR procedure are i n the results section. C-REACTIVE PROTEIN STAT 04/07/2020 11:59 Resul ts for this (INFLAMMATION) PM WINDOW SHADE ESTIMATOR procedure are in the results section. TROPONIN I STAT 04/07/2020 11:59 Results for this PM WINDOW SHADE ESTIMATOR procedure are i n the results section. FERRITIN STAT 04/07/2020 11:59 Results for this PM WINDOW SHADE ESTIMATOR procedure are i n the results section. MAGNESIUM STAT 04/07/2020 11:59 Results for this PM WINDOW SHADE ESTIMATOR procedure are i n the results section. LDH TOTAL STAT 04/07/2020 11:59 Results for this PM WINDOW SHADE ESTIMATOR procedure are i n the results section. CK STAT 04/07/2020 11:59 Results for this PM WINDOW SHADE ESTIMATOR procedure are i n the results section. COMPREHENSIVE STAT 04/07/2020 11:59 Results fo r this METABOLIC PANEL PM WINDOW SHADE ESTIMATOR procedure ar e in the results section. LAB ONLY-COMPLETE STAT 04/07/2020 11:59 Result s for this BLOOD COUNT WITH PM WINDOW SHADE ESTIMATOR procedure a re in DIFFERENTIAL the results section. BRAIN NATRIURETIC STAT 04/07/2020 11:59 Result s for this PEPTIDE PM WINDOW SHADE ESTIMATOR procedure are i n the results section. EKG RAMONA 04/07/2020 11:42 Results for this PM WINDOW SHADE ESTIMATOR procedure are i n the results section. documented in this encounter Results PTT (04/09/2020 10:15 AM WINDOW SHADE ESTIMATOR) Pathologist Sig nature APTT 43 (H) 24 - [address] Specimen Blood - Blood specimen (specimen) Performing Organization Address City/State/Zipcode Phone Number [address] [place] [address] PTT (04/09/2020 7:56 AM WINDOW SHADE ESTIMATOR) Pathologist Sig nature APTT >150 (HH) 24 - [address] Specimen Blood - Blood specimen (specimen) Performing Organization Address City/State/Zipcode Phone Number [address] [place] [address] LAB ONLY-COMPLETE BLOOD COUNT WITH DIFFERENTIAL (04/09/2020 6:15 AM WINDOW SHADE ESTIMATOR) WBC 11.0 4.0 - 11.0 K/uL [address] RBC 2.68 (L) 3.80 - 5.[address] M/uL Hemoglobin 8.6 (L) 11.5 - 15.[address] g/dL Hematocrit 26.8 (L) 35.0 - 45.0 % [address] MCV 100.0 (H) 80.0 - 98.[address] MCH 32.1 25.5 - 34.[address] MCHC 32.1 31.5 - 36.[address] g/dL RDW-CV 14.7 11.5 - 15.5 % [address] RDW-SD 54.4 (H) 35.5 - 50.[address] Platelet Count 179 140 - 400 K/uL [address] MPV 10.8 8.5 - 12.[address] Seg Neut Absolute 8.9 (H) 1.8 - 8.0 K/uL [address] Lymphocytes Absolute 1.0 0.8 - 4.1 K/uL [place] [address] [facility] Monocytes Absolute 0.7 0.0 - 1.0 K/uL [address] Eosinophils Absolute 0.2 0.0 - 0.7 K/uL [place] [address] [facility] Basophil Absolute 0.1 0.0 - 0.2 K/uL [address] Immature Granulocyte 0.08 (H) 0.00 - 0.[address] Absolute K/uL Neutrophils Abs. 8,900 /uL [address] (Segs and Bands) Neutrophils Percent 80.9 % [address] Lymphocytes Percent 9.1 % [address] Monocytes Percent 6.7 % [address] Immature Granulocyte 0.7 % [address] Percent Eosinophils Percent 2.1 % [address] Basophil Percent 0.5 % [address] Nucleated RBC 0 /[address] Specimen Blood - Blood specimen (specimen) Performing Organization Address [facility] Number [address] [address] PTT (04/09/2020 6:15 AM WINDOW SHADE ESTIMATOR) Pathologist Sig nature APTT >150 (HH) 24 - [address] Specimen Blood - Blood specimen (specimen) Performing Organization Address [facility] Number [address] [address] PROTIME/INR (04/09/2020 6:15 AM WINDOW SHADE ESTIMATOR) Pathologist Sig nature Protime 14.9 (H) 12.0 - 14.[address] INR 1.2 (L) 2.0 - 3.[address] Specimen Blood - Blood specimen (specimen) Narrative Performed At Normal INR reference range (patients not on oral antic oagulants) [address] 0.9-1.1. INR Standard Intensity = (2.0 - 3.0) INR Higher Intensity = (2.5 - 3.5) Performing Organization Address [facility] Number [address] [address] PTT (04/09/2020 12:23 AM WINDOW SHADE ESTIMATOR) Pathologist Sig nature APTT 106 (H) 24 - [address] Specimen Blood - Blood specimen (specimen) Performing Organization Address [facility] Phone Number [address] [address] PTT (04/08/2020 8:35 PM WINDOW SHADE ESTIMATOR) Pathologist Sig nature APTT >150 (HH) 24 - [address] Specimen Blood - Blood specimen (specimen) Performing Organization Address [facility] Number [address] [place] [address] PTT (04/08/2020 1:28 PM WINDOW SHADE ESTIMATOR) Pathologist Sig nature APTT 47 (H) 24 - [address] Specimen Blood - Blood specimen (specimen) Performing Organization Address City/State/Zipcode Phone Number [address] [place] [address] ECHO ADULT COMPLETE (04/08/2020 11:08 AM WINDOW SHADE ESTIMATOR) Specimen Narrative Performed At This result has an attachment that is no t available. [facility] Patient: CECILE GILBERT MR#: [id number] Exam Date: 04/08/2020 Transthoracic Echocardiogram [facility] [address] [place] [address] BP: 85/40 mmHg HR: 90 bpm : 1940 Exam Location: Bedside Height: 67.00 "(170.2 cm) Age: 79 year(s) Patient Room: [facility] Weight: 197 lbs.(89.36 kg) Gender: Female Patient Status: Inpatient BSA: 2.01 m2 Natural Resources Extension Educator: CHANTAL GONCALVES RDCS (PE) Reading Physician: CAROL ANN FINNEY MD Ordering Physician: IMELDA MOLINA MD Procedure Indication(s): A fib with RVR, Hypoxic respiratory failure related to CHF vs HAP Examination: TTE Complete 2D(m-mode), Complete Spectral Doppler, Color Doppler Conclusions Left Ventricle: Normal left ventricular systolic functio n. The ejection fraction is visually estimated to be 65 %. Left Atrium: Markedly dilated left atrium. Aorta: There is dilatation of the ascending aorta measuring 4 0.0 mm. Mitral Valve: Mild mitral regurgitation. Right Ventricle: Reduced right ventricular systolic function. Pulmonary Artery: Degree of pulmonary hypertension likely underestimated due to reduced right ventricular function. Right Atrium: Markedly dilated right atrium. Tricuspid Valve: Mild tricuspid regurgitation. IVC: Normal IVC size with minimal respirophasic changes. Pericardium: No significant pericardial effusion. Left side pleural effusion. Comparison Study Comparison Date: 03/16/2020 Comparison Study: Transthoracic Echocardiogram There was no significant change from prior echo Findings Left Ventricle: Normal left ventricular size. Mildly inc reased left ventricular wall thickness. Normal left ventricular systolic function. The ejection fraction is visually estimated to be 65 %. There are no left ventricular regional wall motion abnormalities. IVS: There is sigmoid septal appearance. Left Atrium: Markedly dilated left atrium. Aortic Valve: The aortic valve is tricuspid. Mild aort ic cuspal thickening. The noncoronary cusp demostrates mild calcification. The noncoronary cusp demostrates reduced mob ility. No significant aortic regurgitation. No aortic stenosis. Aorta: The sinus of valsalva is normal in size measuring 35.7 mm. There is dilatation of the ascending aorta measuring 40.0 mm. Mitral Valve: Mild mitral leaflet thickening. There is tzka-pn-caomdrwo mitral annular calcification. Mild mitral regurgitation. No mitral stenosis. IAS: No gross evidence of shunt flow seen; ho ant the possibility of a PFO cannot be completely ruled out. Right Ventricle: Dilated right ventricle. Reduced right v entricular systolic function. Normal right ventricular wall thickness. Pulmonary artery systolic pressure is measured at 28 mmHg . TAPSE measures 8 mm. Tricuspid valve lateral annulus peak systolic velocity is 4.2 cm/sec. Pulmonary Artery: Degree of pulmonary hypertension likely underestimated due to reduced right ventricular function. Right Atrium: Markedly dilated right atrium. Tricuspid Valve: Normal tricuspid valve structure. Mild tricuspid regur gitation. Pulmonic Valve: Normal pulmonary valve structure. Trivia l pulmonary regurgitation. No pulmonary stenosis. IVC: Normal IVC size with minimal respirophasic changes. Pericardium: No significant pericardial effusion. Left side pleural effusion. Measurements Left Ventricle Aortic Valve Label Value Normal Value Label Value Normal Value LVDd, 2D 38.6 mm LVOT Vmax 104 cm/s LVDs, 2D 23.3 mm AV Vmax 122 cm/s IVSd, 2D 11.9 mm LVOTd 21 mm LVPWd, 2D 9.7 mm LVOT VTI 17.8 cm FS, 2D 39.64 % LVOT PGmax 4 mmHg LVEDV, 2D 64 ml AV Vmean 97 cm/s LVESV, 2D 19 ml AV VTI 22.6 cm Cardiac Output 5.58 L/min AV PGmax 6 mmHg Cardiac Index 2.78 AV PGmean 4 mmHg L/min/m-sq SUE (Vmax) 3 cm-sq Right Ventricle AV Vmax, Caliper 122 cm/s Label Value Normal Value Mitral Valve TAPSE 8 mm Label Value Normal Value S' Tissue Doppler 4.2 cm/sec MV E Vmax 76 cm/s Left Atrium MV E/E' lateral 8.2 Label Value Normal Value MV E/E' septal 10.4 LADs Long. 70 mm MV E' septal 7.3 cm/s LA Volume Index 49.5 ml/m-sq MV E' lateral 9.3 cm/s Aorta Tricuspid Valve Label Value Normal Value Label Value Normal Value Ao Sinus, 2D 35.7 mm TR Vmax 222 cm/s Ao Asc 40 mm TR Pmax 20 mmHg Heart Rate RA Pressure 8 mmHg Label Value Normal Value RVSP 28 mmHg Heart Rate 90 bpm Pulmonic Valve Label Value Norm al Value PV Vmax 66 cm/s PV PGmax 2 mmHg Procedure Note Interface, Inc Results No Pull Forward - 04/08/2020 11:55 AM WINDOW SHADE ESTIMATOR Patient: CECILE GILBERT MR#: [id number] Exam Date: 04/08/2020 Transthoracic Echocardiogram [facility] [address] [place] [address] BP: 85/40 mmHg HR: 90 bpm : 1940 Exa m Location: Bedside Height: 67.00 "(170.2 cm) Age: 79 year(s) Pat ient Room: [facility] Weight: 197 lbs.(89.36 kg) Gender: Female Pat ient Status: Inpatient BSA: 2.01 m2 Natural Resources Extension Educator: CHANTAL RIOS, [facility] () Reading Physician: FRANCISCO FINNEY MD Ordering Physician: IMELDA MOLINA MD Procedure Indication(s): A fib w ith RVR, Hypoxic respiratory failure related to CHF vs HAP Examination: TTE Com plete 2D(m-mode), Complete Spectral Doppler, Color Doppler Conclusions Left Ventricle: Normal left ventricular systolic functio n. The ejection fraction is visually estimated to be 65 %. Left Atrium: Markedly dilated left atrium. Aorta: There is dilatation of the ascending aor ta measuring 40.0 mm. Mitral Valve: Mild mitral regurgitation. Right Ventricle: Reduced right ventricular systolic funct ion. Pulmonary Artery: Degree of pulmonary hypertension likely underestimated due to reduced right ventricular function. Right Atrium: Markedly dilated right atrium. Tricuspid Valve: Mild tricuspid regurgitation. IVC: Normal IVC size with minimal respirophas ic changes. Pericardium: No significant pericardial effusion. Lef t side pleural effusion. Comparison Study Comparison Date: 03/16/2020 Comparison Study: Transthoracic Echocard iogram There was no significant change from tushar or echo Findings Left Ventricle: Normal left ventricular size. Mildly inc reased left ventricular wall thickness. Normal left ventricular systolic function. The ejection fraction is visually estimated to be 65 %. There are no left ventricular regional wall motion abnormalities. IVS: There is sigmoid septal appearance. Left Atrium: Markedly dilated left atrium. Aortic Valve: The aortic valve is tricuspid. Mild aort ic cuspal thickening. The noncoronary cusp demostrates mild calcification. The noncoronary cusp demostrates reduced mob ility. No significant aortic regurgitation. No aortic stenosis. Aorta: The sinus of valsalva is normal in size measuring 35.7 mm. There is dilatation of the ascending aorta measuring 40.0 mm. Mitral Valve: Mild mitral leaflet thickening. There is krqd-bh-zfxebrxj mitral annular calcification. Mild mitral regurgitation. No mitral stenosis. IAS: No gross evidence of shunt flow seen; ho casandraver the possibility of a PFO cannot be completely ruled out. Right Ventricle: Dilated right ventricle. Reduced right v entricular systolic function. Normal right ventricular wall thickness. Pulmonary artery systolic pressure is measured at 28 mmHg . TAPSE measures 8 mm. Tricuspid valve lateral annulus peak systolic velocity is 4.2 cm/sec. Pulmonary Artery: Degree of pulmonary hypertension likely underestimated due to reduced right ventricular function. Right Atrium: Markedly dilated right atrium. Tricuspid Valve: Normal tricuspid valve structure. Mild t ricuspid regurgitation. Pulmonic Valve: Normal pulmonary valve structure. Trivia l pulmonary regurgitation. No pulmonary stenosis. IVC: Normal IVC size with minimal respirophas ic changes. Pericardium: No significant pericardial effusion. Lef t side pleural effusion. Measurements Left Ventricle Aortic Valve Label Value Nor mal Value Label Value Normal Value LVDd, 2D 38.6 mm LVOT Vmax 104 cm/s LVDs, 2D 23.3 mm AV Vmax 122 cm/s IVSd, 2D 11.9 mm LVOTd 21 mm LVPWd, 2D 9.7 mm LVOT VTI 17.8 cm FS, 2D 39.64 % LVOT PGmax 4 mmHg LVEDV, 2D 64 ml AV Vmean 97 cm/s LVESV, 2D 19 ml AV VTI 22.6 cm Cardiac Output 5.58 L/min AV PGmax 6 mmHg Cardiac Index 2.78 AV PGmean 4 mmHg L/min/m-sq A VA (Vmax) 3 cm-sq Right Ventricle AV Vmax, Caliper 122 cm/s Label Value Nor mal Value Mitral Valve TAPSE 8 mm Label Value Normal Value S' Tissue Doppler 4.2 cm/sec MV E Vmax 76 cm/s Left Atrium MV E/E' lateral 8.2 Label Value Nor mal Value MV E/E' septal 10.4 LADs Long. 70 mm MV E' septal 7.3 cm/s LA Volume Index 49.5 ml/m-sq MV E' lateral 9.3 cm/s Aorta Tricuspid Valve Label Value Nor mal Value Label Value Normal Value Ao Sinus, 2D 35.7 mm TR Vmax 222 cm/s Ao Asc 40 mm TR Pmax 20 mmHg Heart Rate RA Pressure 8 mmHg Label Value Nor mal Value RVSP 28 mmHg Heart Rate 90 bpm Pulmonic Valve Label Value Nor mal Value PV Vmax 66 cm/s PV PGmax 2 mmHg Performing Organization Address [facility] [place] [place] Phone Number [facility] [place], [place] PTT (04/08/2020 10:51 AM WINDOW SHADE ESTIMATOR) Pathologist Sig nature APTT >150 (HH) 24 - [address] Specimen Blood - Blood specimen (specimen) Performing Organization Address [facility] [place] [place] Phone Number [address] [place] [id number] LACTIC ACID (04/08/2020 10:51 AM WINDOW SHADE ESTIMATOR) Pathologist Sig nature Lactic Acid 1.7 0.5 - 2.2 mmol/L [address] Specimen Blood - Blood specimen (specimen) Performing Organization Address [facility] [place] [place] Phone Number [address] [place] [id number] LAB ONLY-MANUAL DIFFERENTIAL (04/08/2020 9:19 AM WINDOW SHADE ESTIMATOR) Pathologist Sig nature Neutrophils Abs. 18,000 /uL [address] (Segs and Bands) Seg Neut Absolute 18.0 (H) 1.8 - 8.0 K/uL [facility] Lymphocytes Absolute 1.0 0.8 - 4.1 K/uL [place] [address] [facility] Monocytes Absolute 0.8 0.0 - 1.0 K/uL [place] [address] [facility] Eosinophils Absolute 0.2 0.0 - 0.7 K/uL [place] [address] [facility] Neutrophils Percent 90.0 % [address] Lymphocytes Percent 5.0 % [address] Monocytes Percent 4.0 % [address] Eosinophils Percent 1.0 % [address] Platelet Morphology Normal [address] RBC Morphology Normal [address] Specimen Blood - Blood specimen (specimen) Performing Organization Address [facility] [facility] Phone Number [address], [place] [address] LAB ONLY-COMPLETE BLOOD COUNT WITH DIFFERENTIAL (04/08/2020 9:19 AM WINDOW SHADE ESTIMATOR) Pathologist Sig nature WBC 20.0 (H) 4.0 - 11.0 K/uL [address] RBC 2.83 (L) 3.80 - 5.30 M/uL [address] Hemoglobin 9.2 (L) 11.5 - 15.8 g/dL [address] Hematocrit 28.2 (L) 35.0 - 45.0 % [address] MCV 99.6 (H) 80.0 - 98.[address] MCH 32.5 25.5 - 34.[address] MCHC 32.6 31.5 - 36.5 g/dL [address] RDW-CV 14.8 11.5 - 15.5 % [address] RDW-SD 53.7 (H) 35.5 - 50.[address] Platelet Count 193 140 - 400 K/uL [address] MPV 11.0 8.5 - 12.[address] Specimen Blood - Blood specimen (specimen) Narrative Performed At A previously reported component Auto NRBCs is no longe r reported. [place] [id number] [facility] Performing Organization Address [facility] Phone Number [address] [place] [address] TROPONIN I (04/08/2020 9:19 AM WINDOW SHADE ESTIMATOR) Pathologist Sig nature Troponin I 0.709 (H) 0.000 - 0.028 ng/mL [address] Specimen Blood - Blood specimen (specimen) Performing Organization Address [facility] [place] Phone Number [place] [address] [facility] [address] [place] [address] CRITICAL CARE (04/08/2020 7:26 AM WINDOW SHADE ESTIMATOR) Narrative Performed At Meggan Basurto MD 04/08/2020 7:39 AM CRITICAL CARE Performed by: Meggan Basurto MD Authorized by: Meggan Basurto MD Total critical care time: 45 minutes Critical care time was exclusive of sepa rately billable procedures and treating other patients and teaching leela e. Critical care was necessary to treat or prevent imminent or life-threatening deterioration of the fo llowing conditions: sepsis and respiratory failure. Critical care was time spent personally by me on the f ollowing activities: development of treatment plan with patient or surrogat e, discussions with consultants, evaluation of patient's response to treat ment, examination of patient, obtaining history from patient or surrogate, ordering and performing treatments and interventions, ordering and review of laboratory studies, ordering and review of radiogra phic studies, pulse oximetry, re-evaluation of patient's condition and review of old charts. PROTIME/INR (04/08/2020 7:11 AM WINDOW SHADE ESTIMATOR) Pathologist Sig nature Protime 13.6 12.0 - 14.[address] INR 1.1 (L) 2.0 - 3.[address] Specimen Blood - Blood specimen (specimen) Narrative Performed At Normal INR reference range (patients not on oral antic oagulants) [address] 0.9-1.1. INR Standard Intensity = (2.0 - 3.0) INR Higher Intensity = (2.5 - 3.5) Performing Organization Address [facility] [place] Phone Number [place] [address] [facility] [address] [place] [address], [place] [address] PTT (04/08/2020 7:11 AM WINDOW SHADE ESTIMATOR) Pathologist Sig nature APTT 121 (H) 24 - [address] Specimen Blood - Blood specimen (specimen) Performing Organization Address [facility] Phone Number [address] [place] [address] BLOOD GASES VENOUS (04/08/2020 7:10 AM WINDOW SHADE ESTIMATOR) pH Venous 7.44 7.30 - 7.[address] [facility] pCO2 Venous 47 35 - [address] [facility] pO2 Venous 75 (H) 35 - [address] [facility] Base Excess Venous 6 (H) -2 - 2 meq/L [facility] HCO3 Venous 31 (H) 20 - 29 [facility] mmol/L [facility] O2 Saturation % 93 (H) 60 - 80 % [facility] Carbon Monoxide <0.0 (L) 0.0 - 3.0 % [facility] Methemoglobin 0.5 0.0 - 3.0 % [facility] p50 30.61 (H) 25.00 - [facility] 29.00 mmHg [facility] Allens Test Allens Test is [facility] not Required [facility] Collection Site Venous [facility] O2 Source Unknown [facility] Specimen Blood - Venous blood specimen (specimen) Performing Organization Address [facility] Phone Number [facility] - [address] [place] [address] RESPIRATORY THERAPY TROPONIN I (04/08/2020 7:05 AM WINDOW SHADE ESTIMATOR) Pathologist Sig nature Troponin I 0.671 (H) 0.000 - 0.028 ng/mL [address] Specimen Blood - Blood specimen (specimen) Performing Organization Address [facility] Phone Number [address] [place] [phone] BASIC METABOLIC PANEL (04/08/2020 7:05 AM WINDOW SHADE ESTIMATOR) Pathologist Sig nature Glucose 133 (H) 70 - 100 mg/dL [address] BUN 30 (H) 6 - 22 mg/dL [address] Creatinine 5.09 (H) 0.60 - 1.[address] mg/dL BUN/Creatinine Ratio 5.9 (L) 10.0 - 25.[address] Sodium 140 135 - 145 meq/L [address] Potassium 5.0 3.5 - 5.3 meq/L [address] Chloride 99 99 - 110 meq/L [address] CO2 28 20 - 29 meq/L [address] Anion Gap with K 18 6 - 20 meq/L [address] Calcium 8.3 (L) 8.5 - 10.[address] mg/dL Age [address] eGFR Non- 8 (L) >=[address] Armenian mL/min/1.73m2 eGFR 10 (L) >=[address] mL/min/1.73m2 Specimen Blood - Blood specimen (specimen) Performing Organization Address [facility] Phone Number [address] [place] [address] LACTIC ACID (04/08/2020 7:05 AM WINDOW SHADE ESTIMATOR) [facility] Lactic Acid 1.4 0.5 - 2.2 mmol/L [address] Specimen Blood - Blood specimen (specimen) Performing Organization Address [facility] [place] Phone Number [address] [place] [address] XRAY CHEST PORTABLE - (04/08/2020 12:56 AM WINDOW SHADE ESTIMATOR) Specimen Narrative [facility] At [facility] Name: CECILE GILBERT SEPTEMBER Date of : 1940 Procedure: XRAY CHEST PORTABLE Date of Service: 04/08/2020 EXAM: XRAY CHEST PORTABLE INDICATION:Shortness of breath. COMPARISON: Multiple prior chest radiographs including but not limited to 02/10/2018. FINDINGS: SUPPORT DEVICES AND SURGICAL MATERIAL: Surgical materi al about the left upper abdomen. CARDIAC/MEDIASTINAL CONTOURS: Cardiac silhouette enlar ged. Atheromatous plaques in the aorta. PLEURA/LUNGS: Moderate bilateral pleural effusions, se ptal thickening and retrocardiac airspace opacity withou t pneumothorax. ADDITIONAL FINDINGS: Severe demineralization. Degenera tive changes in the axial/appendicular skeleton. IMPRESSION: Cardiomegaly, pleural effusions and interstitial edema with retrocardiac atelectatic or infiltrative changes. Fol low-up to resolution. Finalized by: Charles Rudolph MD on 3:02 AM WINDOW SHADE ESTIMATOR Patient/Procedure Information: [facility] MRN/JOSE G: [id number] Order Number: [id number] Accession Number: [id number] Ordering Provider: MEGGAN BASURTO Authorizing Provider: MEGGAN BASURTO Procedure Note Interface, Radiantres - 04/08/2020 3:04 AM WINDOW SHADE ESTIMATOR Patient Name: CECILE GILBERT SEPTEMBER Date of : 1940 Procedure: XRAY CHEST PORTABLE Date of Service: 04/08/2020 EXAM: XRAY CHEST PORTABLE INDICATION:Shortness of breath. COMPARISON: Multiple prior chest radiogr aphs including but not limited to 02/10/2018. FINDINGS: SUPPORT DEVICES AND SURGICAL MATERIAL: S urgical material about the left upper abdomen. CARDIAC/MEDIASTINAL CONTOURS: Cardiac si lhouette enlarged. Atheromatous plaques in the aorta. PLEURA/LUNGS: Moderate bilateral pleural effusions, septal thickening and retrocardiac airspace opacity without pneumothorax. ADDITIONAL FINDINGS: Severe demineraliza tion. Degenerative changes in the axial/appendicular skeleton. IMPRESSION: Cardiomegaly, pleural effusions and inte rstitial edema with retrocardiac atelectatic or infiltrative changes. Follow-up to resolution. Finalized by: Charles Rudolph MD on 3:02 AM WINDOW SHADE ESTIMATOR Patient/Procedure Information: [facility] MRN/JOSE G: [id number] Order Number: [id number] Accession Number: [id number] Ordering Provider: MEGGAN BASURTO Authorizing Provider: MEGGAN BASURTO Performing Organization Address City/State/Zipcode Phone Number [id number] SARS-COV-2, INFLUENZA A+B, AND/OR RSV NUCLEIC ACID TESTING PANEL (04/08/2020 12:03 AM WINDOW SHADE ESTIMATOR) Pathologist Sig nature SARS-CoV-2 Not Detected Not Detected [address] Specimen Respiratory - Entire nasopharynx (body s tructure) Narrative Performed At Please read entire report. Results for Influenza A and B or RSV [address] may also be available depending on which viruses your provider selected for testing. Your Covid-19 test is negative: 1)Avoiding close contact is s till recommended. 2)Cover your coughs and snee zes. 3)Wash your hands often with soap and wate r for at least 20 seconds or use an alcohol-based examination scorer con taining over 60% alcohol. Avoid touching your fa ce. 4)Avoid sharing personal household items, including dishes, cups, utensils, towels, clothing, or bedding. These items should be cleaned thoroughly with soap and water after use. Clean all "high touch" surfaces in your home d aily. 5) Monitor your symptoms. Contact your provider if you are feeling worse. If you have shortness of breath or diff iculty breathing, call 911. This assay is for in vitro diagnostic use under FDA Em ergency Use Authorization only. Optimal performance of this test requires appropriate specimen collection, storage, and transport to [facility] test site. Detection of SARS-CoV-2 RNA may be affected by sample collection methods, patient factors (eg, presence of symptoms), a nd/or stage of infection. False-negative results may arise from degradation of v iral RNA during shipping/storage. Results should be interpreted by a trained professiona l in conjunction with the patient s history and clinical signs and symptoms, and epidemi ological risk factors. Negative (Not Detected) results do not preclude infect ion with the SARS-CoV-2 virus and should not be the sole basis of patient treatment/management or public health decision. Follow up testing should be performed according to the current CDC recom mendations. This test was performed by polymerase chain reaction ( PCR) on the GeneXpert instrument. Performing Organization Address [facility] Phone Number [address] [address] PTT (04/07/2020 11:59 PM WINDOW SHADE ESTIMATOR) Pathologist Sig nature APTT 31 24 - [address] Specimen Blood - Blood specimen (specimen) Performing Organization Address [facility] Phone Number [address] [address] LAB ONLY-COMPLETE BLOOD COUNT WITH DIFFERENTIAL (04/07/2020 11:59 PM WINDOW SHADE ESTIMATOR) WBC 22.2 (H) 4.0 - 11.0 K/uL [address] RBC 3.61 (L) 3.80 - 5.[address] M/uL Hemoglobin 11.5 11.5 - 15.[address] g/dL Hematocrit 37.0 35.0 - 45.0 % [address] MCV 102.5 (H) 80.0 - 98.[address] MCH 31.9 25.5 - 34.[address] MCHC 31.1 (L) 31.5 - 36.[address] g/dL RDW-CV 14.7 11.5 - 15.5 % [address] RDW-SD 55.8 (H) 35.5 - 50.[address] Platelet Count 269 140 - 400 K/uL [address] MPV 10.2 8.5 - 12.[address] Seg Neut Absolute 20.3 (H) 1.8 - 8.0 K/uL [address] Lymphocytes Absolute 0.4 (L) 0.8 - 4.1 K/uL [place] [address] [facility] Monocytes Absolute 1.2 (H) 0.0 - 1.0 K/uL [address] Eosinophils Absolute 0.0 0.0 - 0.7 K/uL [address] Basophil Absolute 0.1 0.0 - 0.2 K/uL [address] Immature Granulocyte 0.15 (H) 0.00 - 0.[address] Absolute K/uL Neutrophils Abs. 20,300 /uL [address] (Segs and Bands) Neutrophils Percent 91.5 % [address] Lymphocytes Percent 1.9 % [address] Monocytes Percent 5.4 % [address] Immature Granulocyte 0.7 % [address] Percent Eosinophils Percent 0.1 % [address] Basophil Percent 0.4 % [address] Nucleated RBC 0 /[address] Specimen Blood - Blood specimen (specimen) Performing Organization Address City/State/Zipcode Phone Number [address] [place] [address] PROCALCITONIN (04/07/2020 11:59 PM WINDOW SHADE ESTIMATOR) Pathologist Sig nature Procalcitonin 0.44 (H) <0.07 ng/mL [address] Specimen Blood - Blood specimen (specimen) Narrative Performed At Suspected Lower Respiratory Tract Infect ion: [address] 0.1-0.25: Low risk for bacterial infection; Antibiotic s discouraged. > 0.25: Increased likelihood for bacterial infection; Antibiotics encouraged. Suspected Sepsis: 0.1-0.5: Low likelihood for sepsis; Anti biotics discouraged. > 0.5: Increased Likelihood for sepsis; Antibiotics encouraged. > 2.0: High risk of sepsis/septic shock; Antibiotics s trongly encouraged. Decisions on antibiotic use should not be based solely on procalcitonin levels. If antibiotics are administered, repeat procalcitonin testing should be performed every 2-3 da ys to consider early antibiotic cessation. PCT is a dynamic biomarker and most useful when trends are analyzed over time in accompaniment with other clinical data. Performing Organization Address [facility] [place] Phone Number [address] [address] PROTIME/INR (04/07/2020 11:59 PM WINDOW SHADE ESTIMATOR) Pathologist Sig nature Protime 11.5 (L) 12.0 - 14.[address] INR 0.9 (L) 2.0 - 3.[address] Specimen Blood - Blood specimen (specimen) Narrative Performed At Normal INR reference range (patients not on oral antic oagulants) [address] 0.9-1.1. INR Standard Intensity = (2.0 - 3.0) INR Higher Intensity = (2.5 - 3.5) Performing Organization Address [facility] [place] Phone Number [address] [place] [address] MAGNESIUM (04/07/2020 11:59 PM WINDOW SHADE ESTIMATOR) Pathologist Sig nature Magnesium 1.9 1.8 - 2.4 mg/dL [address] Specimen Blood - Blood specimen (specimen) Performing Organization Address [facility] [place] [place] Phone Number [address] [address] TROPONIN I (04/07/2020 11:59 PM WINDOW SHADE ESTIMATOR) Pathologist Sig [facility] Troponin I 0.409 (H) 0.000 - 0.028 ng/mL [address] Specimen Blood - Blood specimen (specimen) Performing Organization Address [facility] [place] [place] Phone Number [address] [place] [address] LDH TOTAL (04/07/2020 11:59 PM WINDOW SHADE ESTIMATOR) Pathologist [facility] LDH Total 297 (H) 125 - 245 U/L [address] Specimen Blood - Blood specimen (specimen) Performing Organization Address [facility] Phone Number [address] [place] [address] FERRITIN (04/07/2020 11:59 PM WINDOW SHADE ESTIMATOR) Pathologist [facility] Ferritin 2,882 (H) 5 - 200 ng/mL [facility] Specimen Blood - Blood specimen (specimen) Performing Organization Address [facility] Phone Number [facility] [address] [place] [address] [phone] C-REACTIVE PROTEIN (INFLAMMATION) (04/07/2020 11:59 PM WINDOW SHADE ESTIMATOR) Pathologist [facility] CRP 13.8 (H) 0.0 - 8.0 mg/L [address] Specimen Blood - Blood specimen (specimen) Performing Organization Address [facility] Phone Number [address] [address] COMPREHENSIVE METABOLIC PANEL (04/07/2020 11:59 PM WINDOW SHADE ESTIMATOR) Pathologist [facility] Glucose 130 (H) 70 - 100 mg/dL [address] BUN 29 (H) 6 - 22 mg/dL [address] Creatinine 5.01 (H) 0.60 - 1.[address] mg/dL BUN/Creatinine Ratio 5.8 (L) 10.0 - 25.[address] Sodium 140 135 - 145 meq/L [address] Potassium 4.6 3.5 - 5.3 meq/L [address] Chloride 96 (L) 99 - 110 meq/L [place] [address] [facility] CO2 32 (H) 20 - 29 meq/L [address] Anion Gap with K 17 6 - 20 meq/L [address] Calcium 9.1 8.5 - 10.[address] mg/dL Protein Total 6.6 6.0 - 8.2 g/dL [address] Albumin 3.3 (L) 3.5 - 5.0 g/dL [address] Alkaline Phosphatase 207 (H) 30 - 150 U/L [address] AST - SGOT 35 0 - 35 U/L [address] ALT - SGPT 21 0 - 55 U/L [address] Bilirubin Total 0.5 0.2 - 1.2 mg/dL [address] Corrected Calcium 9.7 8.5 - 10.[address] mg/dL Age [address] eGFR Non- 8 (L) >=[address] Armenian mL/min/1.73m2 eGFR 10 (L) >=[address] mL/min/1.73m2 Specimen Blood - Blood specimen (specimen) Performing Organization Address [facility] [place] [place] Phone Number [address] [phone] CK (04/07/2020 11:59 PM WINDOW SHADE ESTIMATOR) Pathologist Sig nature CK 36 30 - 170 U/L [address] Specimen Blood - Blood specimen (specimen) Performing Organization Address [facility] [place] [place] Phone Number [address] [address] BRAIN NATRIURETIC PEPTIDE (04/07/2020 11:59 PM WINDOW SHADE ESTIMATOR) Pathologist Sig nature BNP 998 (H) 0 - 100 pg/mL [address] Specimen Blood - Blood specimen (specimen) Performing Organization Address [facility] Phone Number [address] [address] BLOOD GASES VENOUS WITH IONIZED CALCIUM AND LACTIC ACID (04/07/2020 11:59 PM WINDOW SHADE ESTIMATOR) pH Venous 7.31 7.30 - 7.45 [facility] - RESPIRATORY THERAPY pCO2 Venous 71 (H) 35 - 50 mmHg [facility] - RESPIRATORY THERAPY pO2 Venous 20 (L) 35 - [address] [facility] Base Excess Venous 7 (H) -2 - 2 meq/L [facility] HCO3 Venous 35 (H) 20 - 29 [facility] mmol/L [facility] O2 Saturation % 25 (L) 60 - 80 % [facility] Carbon Monoxide 0.9 0.0 - 3.0 % [facility] Methemoglobin 0.7 0.0 - 3.0 % [facility] p50 30.75 (H) 25.00 - [facility] 29.00 mmHg [facility] Allens Test Allens Test is [facility] not Required [facility] Collection Site Venous [facility] O2 Source Unknown [facility] Ionized Calcium 1.20 1.12 - 1.32 [facility] mmol/L [facility] Lactic Acid 2.1 0.5 - 2.2 [facility] mmol/L [facility] Specimen Blood - Venous blood specimen (specimen) Performing Organization Address City/[facility]/Zipcode Phone Number [facility] - [address] [place] [address] RESPIRATORY THERAPY EKG (04/07/2020 11:42 PM WINDOW SHADE ESTIMATOR) Pathologist Sig nature EKG WAVE[employer] TRACEMASTER MEG SARAH Atrial fibrillation with rapid ventricular response Nonspecific ST and T wave abnormality Abnormal ECG Ventricular Rate: 121 BPM Atrial Rate: 127 BPM QRS Duration: 78 ms Q-T Interval: 306 ms QTc Calculation(Bazett): 434 ms Calculated R Ringwood: 31 degrees Calculated T [place]wood: -14 degrees Specimen Narrative Performed At This result has an attachment that is no t available. Performing Organization Address City/[facility] Phone Number [employer] documented in this encounter Visit Diagnoses Diagnosis Acute respiratory failure with hypoxia a nd hypercapnia (HCC) - Primary HCAP (healthcare-associated pneumonia) Pneumonia, organism unspecified Multifocal pneumonia CKD (chronic kidney disease) stage V req uiring chronic dialysis (HCC) End stage renal disease Elevated troponin level Other abnormal blood chemistry Atrial fibrillation with RVR (HCC) Atrial fibrillation Subtherapeutic international normalized ratio (INR) Abnormal coagulation profile Back pain, unspecified back location, un specified back pain laterality, unspecified chronicity Loose stools Abnormal feces Atrial fibrillation with rapid ventricul ar response ([facility]) Atrial fibrillation Gout, unspecified cause, unspecified chr onicity, unspecified site Preventative health care Routine general medical examination at a health care facility ESRD (end stage renal disease) ([facility]) End stage renal disease Vitamin B 12 deficiency Other B-complex deficiencies ESRD (end stage renal disease) on dialys is ([facility]) End stage renal disease Hospice care Encounter for palliative care NSTEMI (non-ST elevated myocardial infar ction) ([facility]) Acute myocardial infarction, subendocard ial infarction, episode of care unspecified Biventricular congestive heart failure ( [facility]) Congestive heart failure, unspecified Chronic anticoagulation Encounter for long-term (current) use of anticoagulants Hypothyroidism Unspecified hypothyroidism Permanent atrial fibrillation ([facility]) Atrial fibrillation Renal failure Renal failure, unspecified Chronic diastolic CHF (congestive heart failure) ([facility]) Chronic diastolic heart failure Raynaud's syndrome Gastroparesis Sleep apnea Unspecified sleep apnea Obesity Obesity, unspecified DAKOTA (acute kidney injury) ([facility]) Acute kidney failure, unspecified Health care maintenance Unspecified general medical examination Marginal ulcer Gastrojejunal ulcer, unspecified as acut e or chronic, without mention of hemorrhage, perforation, or obstruction Dysphagia Dysphagia, unspecified Hyperkalemia Hyperpotassemia Non-ST elevation (NSTEMI) myocardial inf arction ([facility]) Acute myocardial infarction, subendocard ial infarction, episode of care unspecified Secondary hyperparathyroidism of renal o rigin ([facility]) Secondary hyperparathyroidism (of renal origin) Pressure injury of left buttock, stage 2 ([facility]) Anemia of chronic renal failure, stage 5 ([facility]) documented in this encounter Discharge Diagnoses Not on filedocumented in this encounter Administered Medications Medication Order MAR Action Action Date Dose Rate Site acetaminophen (TYLENOL) tablet Given 04/10/2020 10:12 AM WINDOW SHADE ESTIMATOR 650 mg 650 mg 650 mg, Oral, Every four hours prn, Starting 04/08/20 at 0203, Until Discontinued, mild pain, Use FIRST for mild pain. If inadequate response in 60 minutes, may proceed to next choice option or if no other options, contact provider. Adult patients: Total dose of acetaminophen from all acetaminophen containing products should not exceed 4 grams (4000 mg) per day. Pediatric Patients 0 - 3 months: Maximum of 60 mg/kg/24 hours of acetaminophen. Pediatric Patients older than 3 months: Maximum of 75 mg/kg/24 hours of acetaminophen (Never exceeding 4 grams/day)., Given 04/09/2020 9:53 PM WINDOW SHADE ESTIMATOR 650 mg Given 04/09/2020 5:50 PM WINDOW SHADE ESTIMATOR 650 mg allopurinol (ZYLOPRIM) tablet 100 mg Given 04/10/2020 10:12 AM WINDOW SHADE ESTIMATOR 100 mg 100 mg, Oral, DAILY, First dose (after last modification) on Thu04/10/20 at 0920, Until Discontinued alteplase (CATHFLO ACTIVASE) injection 1 mg 1 mg, IV catheter clearance, PRN per parameter, Starti ng Sun 04/08/20 at 0834, Until Discontinued, other (Specify), for poor blood flows, 2 mL, For dialysis only. If no particulate matter is observed a fter reconstitution, administer 1 mg per port of dialysis catheter as needed for poor blood flows. Allow to dwell for 0.5 to 2 hours, then aspirate from catheter. DO NOT INFUS E INTO PATIENT., azithromycin (ZITHROMAX) tablet 250 mg Given 04/10/2020 10:14 AM WINDOW SHADE ESTIMATOR 250 mg 250 mg, Oral, Daily, 4 doses, First dose on Thu04/10/20 at 0900, Last dose on Thu04/13/20 at 0900 bisacodyl (DULCOLAX) suppository 10 mg 10 mg, Rectal, One time a day prn, Starting Sun at 0203, Until Discontinued, constipation, Use SECOND for constipatio n. If patient cannot take oral medications, use first for constipation., calcium carbonate (TUMS) chewable tablet 1,000 mg 1,000 mg, Oral, Every four hours prn, Starting Sun at 0203, Until Discontinued, other (Specify), acid reflux, Use FIRST for acid reflux. If ineffective after 60 minutes, may proceed to next rios ce option or, if no other options, contact provider., docusate sodium (THEREVAC-SB MINI;ENEMEE Z MINI) 283 MG enema 1 enema 1 enema, Rectal, One time a day prn, Starting Sun 03/14 10/30 at 0203, Until Discontinued, constipation, Use THIRD for constipation - if no BM 8 hours after dulcolax suppository. If patient cannot take oral medi cations, use second for constipation., glycopyrrolate (ROBINUL) 1 mg/5 mL injec tion solution (syringe) 100-200 mcg 100-200 mcg (0.1-0.2 mg), IV, Every four hours prn, Starting Thu04/09/20 at 1302, Until Discontinued, other (Specify), oral secretions, 1 mL HYDROmorphone (DILAUDID) injection solut ion (conc: 0.5 mg/0.5mL) 0.25 mg 0.25 mg, Subcutaneous, Every two hours p rn, Starting Thu04/10/20 at 0918, Until Discontinued, moderate pain, severe pain, 0.25 mL lidocaine (LIDODERM) 5% patch Applied 04/10/2020 10:12 AM WINDOW SHADE ESTIMATOR 1 patch 1 patch, Apply externally, One time a day prn, Starting Thu04/10/20 at 0919, Until Discontinued, Administer over 12 Hours LORazepam (ATIVAN) 2 mg/mL injection ramiro ution 0.25-2 mg 0.25-2 mg, IV, Every four hours prn, Starting 03/14 at 1301, Until Discontinued, other (Specify), restlessness, 1 mL, If preference is to further dilute for IV administration: First draw up patient-specific dose, then dilute with EQUAL VOLUME of 0.9% sodium chloride, LORazepam (ATIVAN) 2 mg/mL injection ramiro ution 0.25-2 mg 0.25-2 mg, Subcutaneous, Every four hour s prn, Starting Thu04/09/20 at 1301, Until Discontinued, other (Specify), restlessness, 1 mL, If preference is to further dilute for IV administration: First draw up patient-specific dose, then dilute with EQUAL VOLUME of 0.9% sodium chloride, LORazepam (ATIVAN) tablet 0.25-2 mg 0.25-2 mg, Oral, Every four hours prn, Starting Thu at 1301, Until Discontinued, other (Specify), restlessness., Use this first. If symptoms not controlled, discontinue, and use diazepam (VALIUM). U se IV route first if available. If not, use route that is mos t easily accessible and least invasive and comfortable for patient. Start with lowe st dose and increase for symptom control., LORazepam (ATIVAN) tablet 0.25-2 mg 0.25-2 mg, Buccal, Every four hours prn, Starting 04/09/20 at 1301, Until Discontinued, other (Specify), restlessness melatonin tablet 3 mg Given 04/09/2020 9:53 PM WINDOW SHADE ESTIMATOR 3 mg 3 mg, Oral, Bedtime prn, Starting 04/08/20 at 0203, Until Discontinued, other (Specify), insomnia, Use FIRST for insomnia. If inadequate response in 60 minutes, may proceed to next choice option or, if no other options, contact provider., Given 04/08/2020 8:45 PM WINDOW SHADE ESTIMATOR 3 mg metoprolol tartrate (LOPRESSOR) half-tablet Given 03/14 10:12 AM WINDOW SHADE ESTIMATOR 12.5 mg 12.5 mg 12.5 mg, Oral, Two times a day, First dose on 04/09/20 at 2100, Until Discontinued, Hold for SBP less than 100 Hold for HR less than 60, Given 04/09/2020 9:53 PM WINDOW SHADE ESTIMATOR 12.5 mg midodrine (PROAMATINE) tablet 10 mg Given 04/08/2020 1:12 PM WINDOW SHADE ESTIMATOR 10 mg 10 mg, Oral, One time a day prn, Starting 04/08/20 at 1250, Until Discontinued, other (Specify), PRIOR to dialysis, Hold if blood pressure greater than 140/80. Maximum of 40 mg per dialysis run., midodrine (PROAMATINE) tablet 10 mg Given 04/08/2020 2:47 PM WINDOW SHADE ESTIMATOR 10 mg 10 mg, Oral, One time a day prn, Starting 04/08/20 at 1250, Until Discontinued, other (Specify), AFTER initiation of dialysis, Give 30 minutes into the run. Hold if blood pressure greater than 140/80. Maximum of 40 mg per dialysis run., midodrine (PROAMATINE) tablet 10 mg Given 04/08/2020 4:06 PM WINDOW SHADE ESTIMATOR 10 mg 10 mg, Oral, PRN per parameter, Starting 04/08/20 at 1250, Until Discontinued, other (Specify), for HYPOTENSION of dialysis, For SBP less than 100 and/or DBP less than 50. Hold if blood pressure greater than 140/80. Maximum of 40 mg per dialysis run. , ondansetron (ZOFRAN ODT) dispersible tab let 4 mg 4 mg, Oral, Four times a day prn, Starting Sun 0 at 0203, Until Discontinued, nausea, vomiting, Use FIRS T for nausea / vomiting. If ineffective after 30 minutes use ondansetron IV, ondansetron (ZOFRAN) injection solution 4 mg Given 04/09/2020 10:16 AM WINDOW SHADE ESTIMATOR 4 mg 4 mg, IV, Four times a day prn, Starting 04/08/20 at 0203, Until Discontinued, nausea, vomiting, 2 mL, Use SECOND for nausea / vomiting. If ineffective after 30 minutes and ondansetron ODT used, call physician for alternative. If preference is to further dilute for IV administration: First draw up patient-specific dose, then dilute to 10 mL with 0.9% sodium chloride., Given 04/08/2020 2:18 AM WINDOW SHADE ESTIMATOR 4 mg polyethylene glycol (MIRALAX) packet 1 p acket 1 packet, Oral, Daily, First dose (after last modifica tion) on Thu04/10/20 at 0900, Until Discontinued, Dissolve in 8 ounces of water, juice, soda, coffee, tea., senna-docusate sodium Given 04/08/2020 8:57 PM WINDOW SHADE ESTIMATOR 1 tablet (SENOKOT-S;PERICOLACE) tablet 1 tablet 1 tablet, Oral, One time a day prn, Starting 04/08/20 at 1259, Until Discontinued, constipation senna-docusate sodium (SENOKOT-S;PERICOL SHELLEY) tablet 2 tablet 2 tablet, Oral, Two times a day prn, Starting 03/14 at 0203, Until Discontinued, constipation, Use FIRST fo r constipation unless patient cannot take oral medications., sodium chloride 0.9% flush (adult) 10 mL Given 04/10/2020 10:17 AM WINDOW SHADE ESTIMATOR 10 mL 10 mL, IV, Two times a day and prn, First dose on 04/08/20 at 0900, Until Discontinued, 10 mL, Flush IV line as scheduled and as often as necessary before and after meds., Given 04/08/2020 8:46 PM WINDOW SHADE ESTIMATOR 10 mL Medication Order MAR Action Action Date Dose Rate Site allopurinol (ZYLOPRIM) tablet 150 Given 04/09/2020 8:22 AM WINDOW SHADE ESTIMATOR 150 mg mg 150 mg, Oral, DAILY, First dose on 04/08/20 at 0935, Until Discontinued Given 04/08/2020 9:43 AM WINDOW SHADE ESTIMATOR 150 mg aspirin chewable tablet 324 mg Given 04/08/2020 9:38 AM WINDOW SHADE ESTIMATOR 324 mg 324 mg, Oral, Now, 1 dose, 04/08/20 at 0750 azithromycin (ZITHROMAX) 500 mg in sodium Given 04/08/2020 6:26 AM WINDOW SHADE ESTIMATOR 500 mg chloride 0.9% 250 mL 500 mg, IV, Now, 1 dose, 04/08/20 at 0605, 250 mL calcium acetate (PHOSLO) 667 MG capsule Given 04/09/2020 6:37 A M WINDOW SHADE ESTIMATOR 1,334 mg 1,334 mg 1,334 mg, Oral, Three times a day with meals, First dose on 04/08/20 at 0730, Until Discontinued, Do not give on an empty stomach, must be given with food to be effective. Avoid giving at the same time as other medications. , Given 04/08/2020 5:15 PM WINDOW SHADE ESTIMATOR 1,334 mg cefepime (MAXIPIME) 1000 mg/10 mL in Given 04/08/2020 12:[address] 1,000 mg sterile water IV syringe 1,000 mg, IV, Now, 1 dose, 04/07/20 at 2325, 10 mL, Administer over 5 minutes., cefepime (MAXIPIME) 1000 mg/10 mL in Given 04/08/2020 5:[address] 1,000 mg sterile water IV syringe 1,000 mg, IV, Every twenty four hours, First dose on 04/08/20 at 1700, Until Discontinued, 10 mL, o To be given after dialysis on the days that patient has dialysis o Contact pharmacy if patient dialysis schedule changes from normal HD days or patient receives an additional dialysis run. Administer over 5 minutes., cyanocobalamin (VITAMIN B-12 DOTS) Given 04/09/2020 8:22 AM WINDOW SHADE ESTIMATOR 1,000 mcg sublingual tablet 1,000 mcg 1,000 mcg, Sublingual, Daily, First dose on 04/08/20 at 1000, Until Discontinued Given 04/08/2020 10:10 AM WINDOW SHADE ESTIMATOR 1,000 mcg fentaNYL 100 mcg/2 mL preservative free Given 04/08/2020 2:19 A M WINDOW SHADE ESTIMATOR 25 mcg injection solution 25 mcg 25 mcg, IV, Every fifteen minutes prn, Starting 04/08/20 at 0143, Until [place] 04/08/20 at 0442, moderate pain, 0.5 mL hEParin (50 units/mL) in Rate Verify 04/09/2020 7:09 AM 16 Units/ kg/hr 29.1 mL/hr D5W premixed IV solution WINDOW SHADE ESTIMATOR (STANDARD-weight based) 0-50 Units/kg/hr 90.9 kg (0-90.9 mL/hr), IV, at 0-90.9 mL/hr, Titrate, Starting [place] 04/08/20 at 0430, Until [facility] 04/09/20 at 1243, 500 mL, Start initial infusion at 15 units/kg/hr. Notify physician if initial infusion exceeds 1,500 units/hr. Adjust heparin infusion based on sliding scale: * aPTT less than 60 sec ------ Give 70 units/kg IV bolus and add 4 units/kg/hr to current rate * aPTT 60-69.9 sec Give 35 units/kg IV bolus and add 2 units/kg/hr to current rate * aPTT 70-120.9 sec No change (therapeutic) * aPTT 121-135.9 sec Subtract 2 units/kg/hr from current rate * aPTT 136-149.9 sec --------- Hold heparin for 1 hour and subtract 3 units/kg/hr from current rate * aPTT 150 sec or greater - Redraw STAT aPTT and hold heparin. Draw hourly aPTT using routine specified time until less than 150 sec, then restart heparin infusion at 3 units/kg/hr less than the previous rate, give NO BOLUS and resume every 6 hour aPTT. AFTER PROCEDURE: When restarting infusion after it's been held for a procedure, restart infusion at "starting" dose of 15 units/kg/hr and follow titration orders. IF infusion was running at less than 15 units/kg/hr prior to procedure, restart at that rate and follow titration orders., New Bag 04/09/2020 2:27 AM WINDOW SHADE ESTIMATOR 16 Units/kg/hr 29.1 mL/hr Rate Change 04/09/2020 1:02 AM WINDOW SHADE ESTIMATOR 16 Units/kg/hr 29.1 mL/hr heparin (porcine) (5000 units/1 mL) IV Given 0 4:30 AM WINDOW SHADE ESTIMATOR 4,000 Units dose 4,000 Units 4,000 Units, IV, Now, 1 dose, Thu04/08/20 at 0430, 1 mL, hEParin (porcine) injection solution (5000 units/1 mL) IV for loading dose - round to the nearest 100 units up to a maximum initial bolus of hEParin 7500 units., heparin (porcine) (5000 units/1 mL) IV Given 0 2:13 PM WINDOW SHADE ESTIMATOR 6,400 Units dose 6,400 Units 6,400 Units (rounded from 6,363 Units = 70 Units/kg 90.9 kg), IV, PRN per parameter, Starting Thu04/08/20 at 0306, Until Thu04/09/20 at 1243, other (Specify), * aPTT less than 60 seconds - Give 70 units/kg IV bolus and add 4 units/kg/hr to current rate of infusion, 2 mL, Supplemental bolus doses based on aPTT: * aPTT less than 60 seconds - Give 70 units/kg IV bolus and add 4 units/kg/hr to current rate of infusion. * aPTT 60 to 69.9 seconds - Give 35 units/kg IV bolus and add 2 units/kg/hr to current rate of infusion. Round to the nearest 100 units up to a maximum bolus of heparin 7500 units , HYDROmorphone (DILAUDID) injection solution Given 03/14 11:46 PM WINDOW SHADE ESTIMATOR 0.25 mg (conc: 0.5 mg/0.5mL) 0.25 mg 0.25 mg, IV, Every two hours prn, Starting Thu04/09/20 at 1311, Until Thu04/10/20 at 0918, moderate pain, severe pain, 0.25 mL levothyroxine tablet 50 mcg Given 04/10/2020 6:25 AM WINDOW SHADE ESTIMATOR 50 mcg 50 mcg, Oral, One time a day before breakfast, First dose on Thu04/08/20 at 0700, Until Discontinued Given 04/09/2020 6:37 AM WINDOW SHADE ESTIMATOR 50 mcg Given 04/08/2020 6:09 AM WINDOW SHADE ESTIMATOR 50 mcg lidocaine-prilocaine (EMLA) 2.5-2.5 % cr eam Applied 04/08/2020 12:25 PM WINDOW SHADE ESTIMATOR Apply externally, One time, 1 dose, 04/08/20 at 0940, Apply to graft 1 hr prior dialysis., multivitamin therapeutic with minerals Given 04/09/2020 8:22 AM WINDOW SHADE ESTIMATOR 2 tablets (THERA-M) tablet 2 tablet 2 tablet, Oral, DAILY, First dose on 04/08/20 at 0935, Until Discontinued Given 04/08/2020 9:43 AM WINDOW SHADE ESTIMATOR 2 tablets pantoprazole (PROTONIX) 80 mg in sodium Given 04/08/2020 9:38 A M WINDOW SHADE ESTIMATOR 80 mg chloride 0.9% 20 mL 80 mg, IV, One time, 1 dose, 04/08/20 at 0855, 20 mL, Administer over 4 minutes., sodium chloride 0.9% (bolus) IV Given 04/08/2020 9:39 AM WINDOW SHADE ESTIMATOR 50 0 mL 999 mL/hr solution 500 mL 500 mL, IV, at 999 mL/hr, Bolus, 1 dose, 04/08/20 at 0915, 500 mL sodium chloride 0.9% IV solution New Bag 04/08/2020 1:11 PM WINDOW SHADE ESTIMATOR 50 mL/hr IV, at 50 mL/hr, Continuous, Starting 04/08/20 at 1345, Until 04/09/20 at 1256, 1,000 mL vancomycin (VANCOCIN) 1,500 mg in sodium Given 04/08/2020 8 :37 PM WINDOW SHADE ESTIMATOR 1,500 mg chloride 0.9% 250 mL (Locked) 1,500 mg, IV, Now, 1 dose, 04/08/20 at 1730, 250 mL, Vanco Dose 1500 mg- Total Volume: 295 mL @ 148 mL/hr x 2 hours, vancomycin (VANCOCIN) 1,750 mg in sodium Given 04/08/2020 1 :01 AM WINDOW SHADE ESTIMATOR 1,750 mg chloride 0.9% 500 mL (Locked) 1,750 mg, IV, Now, 1 dose, 04/07/20 at 2340, 500 mL, Vanco Dose 1750 mg- Total Volume: 558 mL @ 279 mL/hr x 2 hours, warfarin (COUMADIN) tablet 2.5 mg Given 04/08/2020 5:15 PM WINDOW SHADE ESTIMATOR 2.5 mg 2.5 mg, Oral, Warfarin one time dose, 1 dose, 04/08/20 at 1600, If patient is receiving tube feeding, hold tube feeding 1 hour before and 1 hour after warfarin administration. If unable to administer dose intact, wear universal precautions (one pair of gloves)., documented in this encounter
[2020-04-11] MEDS: HYDROmorphone 0.5 MG/0.5 ML Syringe IVPUSH SCH ×2 (08:58→20:23)
[2020-04-11] MEDS: Metoprolol Tartrate 25 MG Tab PO SCH ×2 (08:59→20:20)
[2020-04-11] MEDS: Polyethylene Glycol 3350 Powder 17 GM Packet PO SCH (08:59)
[2020-04-11] MEDS: Azithromycin 250 MG Tab PO SCH (09:00)
[2020-04-11] MEDS: Ondansetron 4 MG Tab.DIS PO PRN (09:00)
[2020-04-11] MEDS: Lidocaine 4% 1 each Patch TOP PRN (09:00)
[2020-04-11] MEDS ORDERED: BISACODYL ENEMA 10 MG/30 ML RECTAL PRN (11:46)
[2020-04-11] MEDS: HYDROmorphone 0.5 MG/0.5 ML Syringe IV PRN (13:15)
[2020-04-11] MEDS: Melatonin 3 MG Tab PO SCH (20:22)
[2020-04-12] MEDS: HYDROmorphone 0.5 MG/0.5 ML Syringe IV PRN (04:59)
[2020-04-12] MEDS: Azithromycin 250 MG Tab PO SCH (08:45)
[2020-04-12] MEDS: HYDROmorphone 0.5 MG/0.5 ML Syringe IVPUSH SCH ×2 (08:45→21:28)
[2020-04-12] MEDS: Metoprolol Tartrate 25 MG Tab PO SCH ×2 (08:45→21:44)
[2020-04-12] MEDS: Polyethylene Glycol 3350 Powder 17 GM Packet PO SCH (08:46)
--- NOTE | 2020-04-12 08:53 | PCM.SN.2 ---
- Free Text/Narrative Note: Are better updated on patient's status. Patient does have increasing complaints of pruritus over the last 24 hours. This is throughout her upper body including torso arms head and even inside her ears. Provider discussed with patient that this is normal with expectant management of kidney failure/cessation of dialy sis. She is aware of this. She is not on any medication that can aid in this at this time. We discussed options available to help with the itching. She would like to go forward with use of a daily allergy pill as well as as needed Benadryl to aid with the itching. We will also plan to use some topical Eucerin cream for comfort. Patient also admits to this provider that she feels like her mentation is starting to wax and wane a little bit today. Feels like she was more clear yesterday. We discussed that this is expected with the buildup of toxins in the body secondary to cessation of dialysis. Overall patient is in good spirits. She is happy that some family members have been able to come and visit with her. She is very happy with the care that she is receiving here. She feels like her pain is under control. Will continue to monitor
[2020-04-12] MEDS ORDERED: diphenhydrAMINE 12.5 MG/5 ML Liquid 5 ML UD Cup PO PRN (08:56)
[2020-04-12] MEDS: Loratadine 10 MG Tab PO SCH (08:57)
[2020-04-12] MEDS: Lidocaine 4% 1 each Patch TOP PRN (14:44)
[2020-04-12] MEDS: Melatonin 3 MG Tab PO SCH (21:33)
[2020-04-13] MEDS: Acetaminophen 325 MG Tab PO PRN ×2 (00:19→16:00)
[2020-04-13] MEDS: diphenhydrAMINE 25 MG Cap PO PRN ×3 (05:46→20:38)
[2020-04-13] MEDS: Lidocaine 4% 1 each Patch TOP PRN (08:52)
[2020-04-13] MEDS: HYDROmorphone 0.5 MG/0.5 ML Syringe IVPUSH SCH ×2 (08:52→22:22)
[2020-04-13] MEDS: Azithromycin 250 MG Tab PO SCH (08:52)
[2020-04-13] MEDS: Metoprolol Tartrate 25 MG Tab PO SCH ×2 (08:52→20:34)
[2020-04-13] MEDS: Polyethylene Glycol 3350 Powder 17 GM Packet PO SCH (08:52)
[2020-04-13] MEDS: Loratadine 10 MG Tab PO SCH (08:54)
[2020-04-13] MEDS: HYDROmorphone 0.5 MG/0.5 ML Syringe IV PRN (19:02)
[2020-04-13] MEDS: Melatonin 3 MG Tab PO SCH (20:34)
[2020-04-14] MEDS: HYDROmorphone 0.5 MG/0.5 ML Syringe IV PRN (01:14)
[2020-04-14] MEDS: diphenhydrAMINE 25 MG Cap PO PRN ×2 (05:55→09:29)
[2020-04-14] MEDS: Metoprolol Tartrate 25 MG Tab PO SCH ×2 (08:39→20:24)
[2020-04-14] MEDS: Polyethylene Glycol 3350 Powder 17 GM Packet PO SCH (08:39)
[2020-04-14] MEDS: Azithromycin 250 MG Tab PO SCH (08:39)
[2020-04-14] MEDS: Loratadine 10 MG Tab PO SCH (08:39)
[2020-04-14] MEDS: HYDROmorphone 0.5 MG/0.5 ML Syringe IVPUSH SCH (08:42)
[2020-04-14] MEDS ORDERED: HYDROmorphone 0.5 MG/0.5 ML Syringe SUBCUT SCH (09:13)
[2020-04-14] MEDS ORDERED: Glycopyrrolate 0.2 MG/ML 2 ML SDV SUBCUT PRN (09:13)
[2020-04-14] MEDS ORDERED: HYDROmorphone 0.5 MG/0.5 ML Syringe SUBCUT PRN (09:14)
[2020-04-14] MEDS: Lidocaine 4% 1 each Patch TOP PRN (09:32)
[2020-04-14] MEDS: DIPHENHYDRAMINE 12.5 MG/5 ML PO PRN (14:58)
[2020-04-14] MEDS: Promethazine Topical Gel 25mg/0.5 ML Syringe TOP PRN (14:58)
[2020-04-14] MEDS: HYDROmorphone 0.5 MG/0.5 ML Syringe SUBCUT PRN (14:58)
[2020-04-14] MEDS: HYDROmorphone 0.5 MG/0.5 ML Syringe SUBCUT SCH (20:16)
[2020-04-14] MEDS: Melatonin 3 MG Tab PO SCH (20:25)
[2020-04-15] MEDS: Polyethylene Glycol 3350 Powder 17 GM Packet PO SCH (07:57)
[2020-04-15] MEDS: HYDROmorphone 0.5 MG/0.5 ML Syringe SUBCUT SCH ×2 (07:58→19:28)
[2020-04-15] MEDS: DIPHENHYDRAMINE 12.5 MG/5 ML PO PRN (08:05)
[2020-04-15] MEDS: Metoprolol Tartrate 25 MG Tab PO SCH ×2 (08:06→22:52)
[2020-04-15] MEDS: Loratadine 10 MG Tab PO SCH (08:08)
[2020-04-15] MEDS: Atropine 1% Ophth Soln 5 ML BOTTLE SL PRN ×2 (08:09→16:14)
[2020-04-15] MEDS: Benzocaine/Cetylpyridinium/Menthol Lozenge MUCMEM PRN (15:26)
[2020-04-15] MEDS: Lidocaine 4% 1 each Patch TOP PRN (15:32)
[2020-04-15] MEDS: HYDROmorphone 0.5 MG/0.5 ML Syringe SUBCUT PRN (15:32)
[2020-04-15] MEDS: Melatonin 3 MG Tab PO SCH (22:52)
[2020-04-16] MEDS: HYDROmorphone 0.5 MG/0.5 ML Syringe SUBCUT PRN (01:38)
[2020-04-16] MEDS: DIPHENHYDRAMINE 12.5 MG/5 ML PO PRN ×2 (01:38→08:52)
[2020-04-16] MEDS: diphenhydrAMINE 25 MG Cap PO PRN (02:52)
[2020-04-16] MEDS: Lidocaine 4% 1 each Patch TOP PRN (08:29)
[2020-04-16] MEDS: Metoprolol Tartrate 25 MG Tab PO SCH ×2 (08:29→21:56)
[2020-04-16] MEDS: Loratadine 10 MG Tab PO SCH (08:31)
[2020-04-16] MEDS: Polyethylene Glycol 3350 Powder 17 GM Packet PO SCH (08:31)
[2020-04-16] MEDS: HYDROmorphone 0.5 MG/0.5 ML Syringe SUBCUT SCH ×2 (08:32→22:01)
[2020-04-16] MEDS: Promethazine Topical Gel 25mg/0.5 ML Syringe TOP PRN ×2 (08:33→15:16)
[2020-04-16] MEDS ORDERED: Menthol/Zinc Oxide Ointment 3.5 GM Tube TOP PRN (08:34)
[2020-04-16] MEDS: Hypromellose 0.3% Ophth Soln 15 ML Bottle EYEBOTH PRN (08:47)
[2020-04-16] MEDS ORDERED: Glycopyrrolate 0.2 MG/ML 2 ML SDV SUBCUT PRN (12:27)
[2020-04-16] MEDS ORDERED: Hypromellose 0.3% Ophth Soln 15 ML Bottle EYEBOTH PRN (12:28)
[2020-04-16] MEDS: Benzocaine/Cetylpyridinium/Menthol Lozenge MUCMEM PRN (14:47)
[2020-04-16] MEDS: Hypromellose 0.3% Ophth Soln 15 ML Bottle EYEBOTH SCH ×2 (14:48→21:59)
[2020-04-16] MEDS ORDERED: DIPHENHYDRAMINE 12.5 MG/5 ML PO PRN (15:30)
[2020-04-16] MEDS ORDERED: Camphor/Menthol 0.5-0.5% Lotion 222 ML Bottle TOP PRN (15:37)
--- NOTE | 2020-04-16 17:17 | PN ---
Progress Note for BENITA winter Date: 04/16/2020 Room #: VM.222 SUBJECTIVE: This is an 79-year-old admitted on 04/10 for end-of-life cares related to a T8 compression fracture, declining surgery; end-stage renal disease, stopping dialysis; and an aspiration pneumonia, and was partially treated in [place]. The patient still currently remains on oxygen. She states she sort of feels herself filling up. She had only the p.r.n. doses of glycopyrrolate she used a couple times, but her pain in her back is only a 1 to 2 and she is on scheduled 0.5 subcu of Dilaudid b.i.d. since she does not have an IV access. They had repositioned her even and used a Lidoderm patch, which seems to help. Her biggest concern is nausea, lack of appetite, which is likely related to her renal disease, along with itching. She has been getting Benadryl, but she has trouble swallowing, related to dysphagia, which she has had workup for in the past and it sounds like her muscles are not working, but they are not aware of a stroke or anything. She was admitted to acute care 04/07 through 04/10 for respiratory failure due to this pneumonia. She refused BiPAP. She got IV azithromycin and cefepime. Actually, she is sitting up, alert, in good spirits; been visiting with family, who is at bedside. She also has a known atrial fibrillation and had a [id number] UT while in [place]. The patient also declines to get up out of bed and work with therapies because wearing the back brace was very uncomfortable for her and she understands along with her healthcare advisors that end of life care and comfort is what she desires at this point. OBJECTIVE: Vital Signs: Her pulse is 109, blood pressure 106/55, O2 96% on 2 L. Heart: Irregularly irregular. Lungs: Her lung sounds are decreased in both bases. Abdomen: Nondistended, nontender. Extremities: Warm and dry. No edema. Mental Status: Alert and orientated x3. She has not had any bowel movements here, but has had some trouble with constipation prior to coming. She does have some p.r.n. and MiraLAX daily. We will continue to dose these things per comfort. Expect constipation given that she is not moving around, but also she has had very little intake. ASSESSMENT: 1. Unstable T8 compression fracture. Continue pain control with scheduled and p.r.n. Dilaudid. 2. End-stage renal disease, stopped dialysis. The patient is under palliative and comfort cares. We discussed trying to use Lasix for respiratory distress. She really has not made urine in the last month or so, so we will just monitor for now and use the glycopyrrolate scheduled, dose adjustments made today. I will reach out to renal to see if they have ideas about symptomatic medications 3. Healthcare-associated pneumonia. She had several days of antibiotics. She is not having any fevers. We will use oxygen as needed for comfort. 4. Permanent atrial fibrillation. She is off Coumadin. She is on the metoprolol for rate control. 5. Sacral ulcer. We will continue with repositioning and wound cares. 6. Chronic constipation. Bowel regimen is available. 7. Chronic dysphagia we will work with pharmacy on medication delivery PLAN: The patient will continue on comfort cares. We will focus on treating her nausea and itching. Benadryl will be available orally. Consider subcu if needed. Consider things like doxepin. Diet as she tolerates with what she feels like eating. She is very comfortable with this plan and appreciative of our care. JANAKA: 04/16/2020 16:35:14 MODL: 04/16/2020 17:10:22 /[id number] MTDD
[2020-04-16] MEDS: diphenhydrAMINE 50 MG/ML SDV PRN ×2 (17:47→22:31)
[2020-04-16] MEDS: Melatonin 3 MG Tab PO SCH (21:58)
[2020-04-16] MEDS: Glycopyrrolate 0.2 MG/ML 2 ML SDV SUBCUT SCH (21:59)
[2020-04-17] MEDS: HYDROmorphone 0.5 MG/0.5 ML Syringe SUBCUT PRN ×2 (05:06→15:08)
[2020-04-17] MEDS: Hypromellose 0.3% Ophth Soln 15 ML Bottle EYEBOTH PRN (05:08)
[2020-04-17] MEDS: diphenhydrAMINE 50 MG/ML SDV PRN ×2 (05:10→22:50)
[2020-04-17] MEDS: HYDROmorphone 0.5 MG/0.5 ML Syringe SUBCUT SCH ×2 (08:40→22:50)
[2020-04-17] MEDS: Polyethylene Glycol 3350 Powder 17 GM Packet PO SCH (08:41)
[2020-04-17] MEDS: Glycopyrrolate 0.2 MG/ML 2 ML SDV SUBCUT SCH ×2 (08:41→22:51)
[2020-04-17] MEDS: Loratadine 10 MG Tab PO SCH (08:42)
[2020-04-17] MEDS: Metoprolol Tartrate 25 MG Tab PO SCH ×2 (08:43→22:54)
[2020-04-17] MEDS: Hypromellose 0.3% Ophth Soln 15 ML Bottle EYEBOTH SCH ×2 (08:52→22:50)
[2020-04-17] MEDS: Benzocaine/Cetylpyridinium/Menthol Lozenge MUCMEM PRN (15:08)
[2020-04-17] MEDS: Melatonin 3 MG Tab PO SCH (22:53)
[2020-04-18] MEDS: diphenhydrAMINE 50 MG/ML SDV PRN ×2 (04:32→22:07)
[2020-04-18] MEDS: HYDROmorphone 0.5 MG/0.5 ML Syringe SUBCUT PRN ×3 (04:35→22:06)
[2020-04-18] MEDS: Lidocaine 4% 1 each Patch TOP PRN (04:39)
[2020-04-18] MEDS: Benzocaine/Cetylpyridinium/Menthol Lozenge MUCMEM PRN (04:39)
[2020-04-18] MEDS: Hypromellose 0.3% Ophth Soln 15 ML Bottle EYEBOTH PRN (04:40)
[2020-04-18] MEDS: Polyethylene Glycol 3350 Powder 17 GM Packet PO SCH (09:08)
[2020-04-18] MEDS: Metoprolol Tartrate 25 MG Tab PO SCH ×2 (09:08→22:11)
[2020-04-18] MEDS: Loratadine 10 MG Tab PO SCH (09:08)
[2020-04-18] MEDS: HYDROmorphone 0.5 MG/0.5 ML Syringe SUBCUT SCH ×2 (09:10→22:10)
[2020-04-18 09:11] VITALS: BP 111/59
[2020-04-18] MEDS: Promethazine Topical Gel 25mg/0.5 ML Syringe TOP PRN (09:13)
[2020-04-18] MEDS: Hypromellose 0.3% Ophth Soln 15 ML Bottle EYEBOTH SCH ×2 (09:13→22:09)
[2020-04-18] MEDS: Glycopyrrolate 0.2 MG/ML 2 ML SDV SUBCUT SCH ×2 (09:23→22:09)
[2020-04-18] MEDS: Melatonin 3 MG Tab PO SCH (22:11)
[2020-04-18 22:12] VITALS: PULSE 103
[2020-04-19] MEDS: HYDROmorphone 0.5 MG/0.5 ML Syringe SUBCUT PRN ×3 (02:51→17:09)
[2020-04-19] MEDS: Ondansetron 4 MG Tab.DIS PO PRN (04:48)
[2020-04-19] MEDS: Atropine 1% Ophth Soln 5 ML BOTTLE SL PRN (04:52)
[2020-04-19] MEDS: diphenhydrAMINE 50 MG/ML SDV PRN ×3 (04:53→15:14)
[2020-04-19] MEDS: Promethazine Topical Gel 25mg/0.5 ML Syringe TOP PRN (04:55)
[2020-04-19] MEDS: Lidocaine 4% 1 each Patch TOP PRN (04:56)
[2020-04-19] MEDS: HYDROmorphone 0.5 MG/0.5 ML Syringe SUBCUT SCH ×2 (09:24→21:51)
[2020-04-19] MEDS: Hypromellose 0.3% Ophth Soln 15 ML Bottle EYEBOTH SCH ×2 (09:26→21:52)
[2020-04-19] MEDS: Glycopyrrolate 0.2 MG/ML 2 ML SDV SUBCUT SCH ×2 (09:29→21:52)
[2020-04-19] MEDS: Loratadine 10 MG Tab PO SCH (09:31)
[2020-04-19] MEDS: Metoprolol Tartrate 25 MG Tab PO SCH ×2 (09:31→22:13)
[2020-04-19] MEDS: Polyethylene Glycol 3350 Powder 17 GM Packet PO SCH (09:32)
--- NOTE | 2020-04-19 17:42 | PN ---
Progress Note for BENITA winter Date: 04/19/2020 Room #: VM.222 SUBJECTIVE: This is an 79-year-old on swing bed for end-of-life cares due to severe pain from a thoracic compression fracture that is unstable. The patient is electing not to do therapies or wear her brace and just stay in bed and be comfortable which she is with the IV Dilaudid subcu twice daily scheduled. She has also received 2 to 3 p.r.n. doses each day. She also feels that the subcu Benadryl is helping her itching and even her nausea some, but she really has not had much oral intake. She is not having any stomach pain. She is not overly short of breath, but sort of feels herself filling up with fluid. She has now been off dialysis a couple weeks. The patient really has no concerns and she is just very pleased with her care here. OBJECTIVE: Vital Signs: Her temperature has been 97.6 this morning, blood pressure 111/59, heart rate 103. General: She is in no acute distress. She is resting in bed comfortably. She is not overly pale. Heart: Irregularly irregular. Lungs: Sounds are decreased with crackles in both bases, at least [address] Abdomen: Nondistended, nontender. Extremities: Warm and dry. No edema. Mental Status: She is alert. She is orientated x3. ASSESSMENT AND PLAN: 1. Unstable T8 compression fracture, electing for comfort measures and pain control. We will continue with the same. 2. End-stage renal disease. Stop dialysis. She is under palliative and comfort cares. We will continue the Benadryl for itching and nausea medications for nausea. No lab monitoring recommended. 3. Fluid congestion, likely related to renal failure at this point. Discussed that probably not going to help her that much to try Lasix. She is comfortable with just using oxygen for comfort and waiting and seeing. 4. Recent healthcare-associated pneumonia. She got a short course of antibiotic. She has been afebrile. No further treatment indicated. 5. Paroxysmal atrial fibrillation. She is off Coumadin. Heart rate seem to be controlled. She will continue her oral Toprol as long as she is able to swallow. 6. Sacral ulcer. Continue with repositioning and wound cares. 7. Chronic constipation. She has not had a bowel movement here, but is not having any discomfort. 8. Chronic dysphagia. 9. Secretions. She is quite pleased with how they are doing now on the Robinul. The patient will continue on comfort cares with subcutaneous medications for pain, nausea, and itching. MKA: 04/19/2020 16:49:18 MODL: 04/19/2020 17:32:05 /[id number]
[2020-04-19] MEDS: Melatonin 3 MG Tab PO SCH (21:52)
--- NOTE | 2020-04-21 06:45 | PCM.DCSUM1 ---
Discharge Summary - Hospital Course Free Text/Narrative:: Patient admitted for end of life care after a T8 compression fracture last month, declining surgery and then she developed an aspiration pneumonia and respiratory failure. Patient and family made the decision to stop therapies, stop dialysis, and not use Bipap. She was transferred to [place] and pain was well managed with subcutaneous dilaudid. Itching with subcut benadryl and many other medications were used for nausea. She could swallow some but her eating was poor. She was always alert but confused at times at night but family was always at the bedside and redirected her. She had shortness of breath likely related to fluid retention but no longer made urine. Oxygen was used for comfort. Patient was very pleased with the care she was receiving. - Discharge Data Discharge Date: 04/19/20 Discharge Disposition: 20 Condition: - Referral to Home Health Primary Care Physician: Catarina Salvador, DO - Discharge Diagnosis/Problem(s) (1) ESRD (end stage renal disease) SNOMED Code(s): 07012614 ICD Code: N18.6 - END STAGE RENAL DISEASE Status: Chronic Priority: High (2) Atrial fib/flutter, transient SNOMED Code(s): 489785611 ICD Code: [id number] - Status: Chronic Priority: High (3) Thoracic compression fracture SNOMED Code(s): 319118740 ICD Code: S22.000A - WEDGE COMPRESSION FRACTURE OF UNSP THORACIC VERTEBRA, INIT Status: Acute Priority: High Qualifiers: Encounter type: sequela Thoracic vertebra fracture level: T8 Qualified Code(s): S22.060S - Wedge compression fracture of T7-T8 vertebra, sequela (4) Aspiration pneumonia SNOMED Code(s): 367428674 ICD Code: J69.0 - PNEUMONITIS DUE TO INHALATION OF FOOD AND VOMIT Status: Acute Priority: High Qualifiers: Aspiration pneumonia type: unspecified Laterality: bilateral (5) Hyperkalemia SNOMED Code(s): 94349764 ICD Code: E87.5 - HYPERKALEMIA Status: Chronic Priority: High - Patient Summary/Data Consults: Consultations 04/10/20 15:08 Consult to Spiritual Care [CONS] Routine - Discharge Plan Home Medications: Home Meds Acetaminophen 650 mg PO Q4H PRN 04/10/20 [History] Acetaminophen [Tylenol Arthritis Pain] 1,300 mg PO TID PRN 04/10/20 [History] Allopurinol [Zyloprim] 100 mg PO DAILY 04/10/20 [History] Azithromycin 250 mg PO DAILY 04/10/20 [History] Docusate Sodium [Enemeez] 283 mg RC DAILY PRN 04/10/20 [History] Gabapentin [Neurontin] 100 mg PO ASDIRECTED 04/10/20 [History] Glycopyrrolate [Cuvposa] 0.5 - 1 ml IV Q4H PRN 04/10/20 [History] HYDROmorphone [Dilaudid] 0.25 mg SQ Q2H PRN 04/10/20 [History] LORazepam [Ativan] 0.25 - 2 mg IV Q4H PRN 04/10/20 [History] LORazepam [Ativan] 0.25 - 2 mg PO Q4H PRN 04/10/20 [History] LORazepam [Ativan] 0.25 - 2 mg SUBCUT Q4H PRN 04/10/20 [History] Lidocaine 5% [Lidoderm 5%] 1 patch TOP DAILY PRN 04/10/20 [History] Metoprolol Tartrate 12.5 mg PO BID 04/10/20 [History] Ondansetron [Ondansetron Odt] 4 mg PO QID PRN 04/10/20 [History] Ondansetron [Zofran] 4 mg IV QID PRN 04/10/20 [History] Sennosides/Docusate Sodium [Senna Plus 8.6-50 mg Tablet] 2 tab PO BID PRN 04/10/20 [History] Sennosides/Docusate Sodium [Senna-Docusate Sodium Tablet] 1 tab PO DAILY PRN 04/10/20 [History] Sodium Phosphate,[place]-Dibasic [Enema Ready To Use] 133 ml RC DAILY PRN 04/10/20 [History] bisacodyL [Bisacodyl] 10 mg RC DAILY PRN 04/10/20 [History] polyethylene glycoL 3350 [MiraLAX] 17 gm PO DAILY 04/10/20 [History] - Discharge Summary/Plan Comment DC Time >30 min.: No - Patient Data Vitals - Most Recent: Last Vital Signs Temp 97.6 F 04/19/20 08:49 Pulse 103 H 01/07/21 09:31 Resp 16 04/13/20 08:00 BP 111/59 L 04/19/20 09:31 Pulse Ox 96 04/14/20 20:00 Weight - Most Recent: 90.1 kg Med Orders - Current: Current Medications Discontinued Medications Acetaminophen (Tylenol) 650 mg PO Q4H PRN PRN Reason: Pain (mild 1-3) Last Admin: 04/13/20 16:00 Dose: 650 mg Documented by: Artificial Tears (Genteal Mild To Moderate Ophth Soln) 0 ml EYEBOTH Q1H PRN PRN Reason: Dry Eyes Last Admin: 04/18/20 04:40 Dose: 1 drop Documented by: Artificial Tears (Genteal Mild To Moderate Ophth Soln) 0 ml EYEBOTH BID MAMADOU Last Admin: 04/19/20 21:52 Dose: Not Given Documented by: Artificial Tears (Genteal Mild To Moderate Ophth Soln) 0 ml EYEBOTH Q2H PRN PRN Reason: DRY EYE Last Admin: 04/19/20 04:54 Dose: 1 drop Documented by: Atropine Sulfate (Atropine 1% Ophth Soln) 0 ml SL Q2H PRN PRN Reason: Secretions Last Admin: 04/19/20 04:52 Dose: 0.33 ml Documented by: Azithromycin (Zithromax) 250 mg PO DAILY MAMADOU Stop: 04/14/20 08:01 Last Admin: 04/14/20 08:39 Dose: 250 mg Documented by: Benzocaine/Menthol (Cepacol Sore Throat) 1 lozenge MUCMEM Q30M PRN PRN Reason: Sore Throat Last Admin: 04/18/20 04:39 Dose: 1 lozenge Documented by: Bisacodyl (Bisacodyl) 30 ml RECTAL DAILY PRN PRN Reason: Constipation Calamine/Phenol (Calmoseptine) 0 gm TOP QID PRN PRN Reason: Other Last Admin: 04/19/20 09:33 Dose: 1 dose Documented by: Camphor/Menthol (Sarna Lotion) 0 ml TOP Q4H PRN PRN Reason: ITCHING Last Admin: 04/19/20 15:16 Dose: 1 dose Documented by: Diphenhydramine HCl (Benadryl) 25 mg PO Q6H PRN PRN Reason: Itching Last Admin: 04/14/20 05:55 Dose: 25 mg Documented by: Diphenhydramine HCl (Benadryl) 25 mg PO Q6H PRN PRN Reason: Itching Diphenhydramine HCl (Benadryl) 50 mg PO Q6H PRN PRN Reason: Itching Last Admin: 04/16/20 02:52 Dose: 50 mg Documented by: Diphenhydramine HCl (Benadryl) 50 mg PO Q6H PRN PRN Reason: Itching Last Admin: 04/16/20 08:52 Dose: 50 mg Documented by: Diphenhydramine HCl (Benadryl) 25 - 50 mg PO Q6H PRN PRN Reason: Itching Diphenhydramine HCl (Benadryl) 25 mg .XX Q4H PRN PRN Reason: ITCHING (UREMIC URTICARIA) Last Admin: 04/19/20 15:14 Dose: 25 mg Documented by: Glycopyrrolate (Glycopyrrolate) 0.5 - 1 mg IV Q4H PRN PRN Reason: SECRETIONS Last Admin: 04/13/20 19:13 Dose: 1 mg Documented by: Glycopyrrolate (Glycopyrrolate) 0.5 - 1 mg SUBCUT Q4H PRN PRN Reason: SECRETIONS Glycopyrrolate (Glycopyrrolate) 0.2 mg SUBCUT BID [facility] Last Admin: 04/19/20 21:52 Dose: Not Given Documented by: Glycopyrrolate (Glycopyrrolate) 0.2 mg SUBCUT Q4H PRN PRN Reason: SECRETIONS Last Admin: 04/18/20 22:08 Dose: 0.2 mg Documented by: Hydromorphone HCl (Dilaudid) 0.25 mg IVPUSH BID MAMADOU Last Admin: 04/14/20 08:42 Dose: 0.25 mg Documented by: Hydromorphone HCl (Dilaudid) 0.25 mg IV Q2H PRN PRN Reason: Pain (severe 7-10) Last Admin: 04/14/20 01:14 Dose: 0.25 mg Documented by: Hydromorphone HCl (Dilaudid) 0.25 mg SUBCUT BID [facility] Hydromorphone HCl (Dilaudid) 0.25 mg SUBCUT Q2H PRN PRN Reason: Pain (severe 7-10) Hydromorphone HCl (Dilaudid) 0.5 mg SUBCUT Q2H PRN PRN Reason: Pain (severe 7-10) Last Admin: 04/19/20 17:09 Dose: 0.5 mg Documented by: Hydromorphone HCl (Dilaudid) 0.5 mg SUBCUT BID [facility] Last Admin: 04/19/20 21:51 Dose: Not Given Documented by: Lidocaine (Aspercreme 4%) 1 each TOP DAILY PRN PRN Reason: Pain Last Admin: 04/19/20 04:56 Dose: 1 each Documented by: Loratadine (Claritin) 10 mg PO DAILY [facility] Last Admin: 04/19/20 09:31 Dose: 10 mg Documented by: Melatonin (Melatonin) 9 mg PO BEDTIME [facility] Last Admin: 04/19/20 21:52 Dose: Not Given Documented by: Metoprolol Tartrate (Lopressor) 12.5 mg PO BID [facility] Last Admin: 04/19/20 22:13 Dose: Not Given Documented by: Ondansetron HCl (Zofran Odt) 4 mg PO Q4H PRN PRN Reason: nausea, able to take PO Ondansetron HCl (Zofran) 4 mg IV QID PRN PRN Reason: Nausea Ondansetron HCl (Zofran Odt) 4 mg PO QID PRN PRN Reason: Nausea Last Admin: 04/19/20 04:48 Dose: 4 mg Documented by: Polyethylene Glycol (Miralax) 17 gm PO DAILY [facility] Last Admin: 04/19/20 09:32 Dose: 17 gm Documented by: Polyethylene Glycol (Miralax) 17 gm PO ONETIME STA Stop: 04/10/20 15:45 Last Admin: 04/10/20 16:29 Dose: 17 gm Documented by: Promethazine HCl (Phenergan) 0.5 ml TOP Q4H PRN PRN Reason: n/v Last Admin: 04/19/20 04:55 Dose: 0.5 ml Documented by: Senna/Docusate Sodium (Senna Plus) 2 tab PO BID PRN PRN Reason: Constipation
== END 2020-04-19 21:10 | disposition expired | DRG 951 ==
LOC: VM.MS 12:49
PROVIDERS: ADMIT Family Medicine; ATTEND Internal Medicine
DX: Z51.5 Encounter for palliative care (principal); N18.6 End stage renal disease; J69.0 Pneumonitis due to inhalation of food and vomit; J18.9 Pneumonia, unspecified organism; I21.4 Non-ST elevation (NSTEMI) myocardial infarction; I13.0 Hypertensive heart and chronic kidney disease with heart failure and stage 1 through stage 4 chronic kidney disease, or unspecified chronic kidney disease; I50.32 Chronic diastolic (congestive) heart failure; J44.0 Chronic obstructive pulmonary disease with (acute) lower respiratory infection; I48.21 Permanent atrial fibrillation; N17.9 Acute kidney failure, unspecified; N25.81 Secondary hyperparathyroidism of renal origin; I48.92 Unspecified atrial flutter; Z66 Do not resuscitate; E11.43 Type 2 diabetes mellitus with diabetic autonomic (poly)neuropathy; E87.5 Hyperkalemia; H35.30 Unspecified macular degeneration; G47.30 Sleep apnea, unspecified; K59.09 Other constipation; I73.00 Raynaud's syndrome without gangrene; I83.90 Asymptomatic varicose veins of unspecified lower extremity; K31.84 Gastroparesis; I73.9 Peripheral vascular disease, unspecified; E03.9 Hypothyroidism, unspecified; D63.1 Anemia in chronic kidney disease; E11.51 Type 2 diabetes mellitus with diabetic peripheral angiopathy without gangrene; E66.9 Obesity, unspecified; D50.9 Iron deficiency anemia, unspecified; L89.151 Pressure ulcer of sacral region, stage 1; S22.062 Unstable burst fracture of T7-T8 vertebra; L29.9 Pruritus, unspecified; I48.0 Paroxysmal atrial fibrillation; Z86.16 Personal history of COVID-19; Z91.09 Other allergy status, other than to drugs and biological substances; Z91.040 Latex allergy status; Z88.8 Allergy status to other drugs, medicaments and biological substances; Z79.899 Other long term (current) drug therapy; Z98.49 Cataract extraction status, unspecified eye; Z90.49 Acquired absence of other specified parts of digestive tract; Z99.2 Dependence on renal dialysis; Z98.84 Bariatric surgery status; Z99.81 Dependence on supplemental oxygen; Z68.30 Body mass index [BMI] 30.0-30.9, adult; Z86.74 Personal history of sudden cardiac arrest; Z98.890 Other specified postprocedural states
CPT/HCPCS: A9270-GY; J1170; J1200; J3490